=== PATIENT | female | born 1975 | race Caucasian/White ===

== ENCOUNTER 2016-11-04 03:02 | Observation (INO) | payer BC, OTHER ==
[2016-11-04] MEDS ORDERED: HEPARIN SODIUM,PORCINE/D5W PMX 25,000 UNIT in DEXTROSE/WATER 1 500ML.BAG IV SCH (03:45)
[2016-11-04] MEDS ORDERED: ONDANSETRON 4 MG/2 ML VIAL IVP STA (04:02)
[2016-11-04 04:56] LABS: Amylase 49 U/L (30-110)
[2016-11-04] MEDS ORDERED: Acetaminophen-Codeine 300-30mg TAB PO STA (05:15)
[2016-11-04] MEDS ORDERED: INSULIN GLARGINE 100 UNIT/ML 10 ML VIAL SQ STA (06:12)
[2016-11-04] MEDS ORDERED: NITROGLYCERIN SL TABS 0.4 MG TAB SUBLINGUAL PRN (06:21)
--- NOTE | 2016-11-04 06:21 | ED ---
Chest Pain HPI - General Chief Complaint: Chest Pain Stated Complaint: Chest Pain Time Seen by Provider: 11/04/16 03:06 Source: patient Mode of arrival: EMS Limitations: no limitations - History of Present Illness Initial Comments: This patient is a 41-year-old woman who was transferred here from [facility]. The patient reportedly has history of previous coronary artery disease and today was having pain similar to that. Pain radiated to left arm. The pain is resolved before she arrives here. She does have history of diabetes and she does smoke about 1 pack per day. MD Complaint: chest pain -: hour(s) Onset: during exertion Pain Location: substernal Pain Radiation: LUE Severity: moderate Quality: tightness Consistency: constant Improves With: nothing Worsens With: nothing - Related Data Home Medications Medication Instructions Recorded Confirmed Gemfibrozil [Lopid] 600 mg PO DAILY 08/28/16 11/04/16 Insulin Glargine [Lantus] 30 units SQ DAILY 08/28/16 11/04/16 metFORMIN HCL 1,000 mg PO BID 08/28/16 11/04/16 Acetaminophen-Codeine 300-30mg 1 tab PO Q6H PRN 11/04/16 11/04/16 [Tylenol w/codeine #3] Colestipol HCl [Colestid] 1 gm PO BID 11/04/16 11/04/16 EPINEPHrine [Epipen 2-Germain] 0.3 mg IM ONCE PRN 11/04/16 11/04/16 Ezetimibe [Zetia] 10 mg PO DAILY 11/04/16 11/04/16 HYDROcodone/APAP 7.5-325MG [[place] 1 tab PO Q4H PRN 11/04/16 11/04/16 7.5-325] Ondansetron [Zofran] 4 mg PO Q6H PRN 11/04/16 11/04/16 Previous Rx's Medication Instructions Recorded Ibuprofen [Motrin] 800 mg PO Q6HR PRN #20 tab 08/28/16 Aspirin 81 mg PO DAILY #1 chewable 11/05/16 Cyclobenzaprine [Flexeril] 10 mg PO TID tab 11/05/16 Nicotine 21Mg/24Hr Patch [Habitrol] 1 patch TRANSDERM DAILY #0 patch 11/05/16 Allergies Allergy/AdvReac Type Severity Reaction Status Date / Time Iodinated Contrast Media - Allergy Unknown Verified 11/04/16 12:10 Oral and [Iodinated Contrast Media - IV Dye] Review of Systems ROS Statement: Those systems with pertinent positive or pertinent negative responses have been documented in the HPI. ROS Other: All systems not noted in ROS Statement are negative. Constitutional: Denies: fever, chills Respiratory: Denies: cough, dyspnea Cardiovascular: Reports: chest pain. Denies: palpitations, syncope Gastrointestinal: Denies: abdominal pain, vomiting Genitourinary: Denies: dysuria, hematuria Musculoskeletal: Denies: back pain Skin: Denies: rash Neurological: Denies: headache, weakness, numbness Past Medical History Past Medical History: Chest Pain / Angina, Diabetes Mellitus, Hyperlipidemia Additional Past Medical History / Comment(s): Familial Hypertriglyceridemia; Pancreatitis History of Any Multi-Drug Resistant Organisms: None Reported Past Surgical History: Cardiac Ablation Additional Past Surgical History / Comment(s): Ankle, Knee scope Past Psychological History: No Psychological Hx Reported Smoking Status: Current every day smoker Past Alcohol Use History: Rare Past Drug Use History: None Reported - Past Family History Father Family Medical History: No Reported History General Exam Limitations: no limitations General appearance: alert, in no apparent distress Head exam: Present: atraumatic, normocephalic Eye exam: Present: normal appearance. Absent: scleral icterus, conjunctival injection Respiratory exam: Present: normal lung sounds bilaterally. Absent: respiratory distress, wheezes, rales, rhonchi, stridor Cardiovascular Exam: Present: regular rate, normal rhythm, normal heart sounds. Absent: systolic murmur, diastolic murmur, rubs, gallop GI/Abdominal exam: Present: soft. Absent: distended, tenderness, guarding, rebound, rigid Extremities exam: Present: normal inspection, normal capillary refill. Absent: pedal edema, calf tenderness Back exam: Present: normal inspection. Absent: CVA tenderness (R), CVA tenderness (L) Neurological exam: Present: alert Skin exam: Present: warm, dry, intact, normal color. Absent: rash Course Vital Signs 11/04/16 11/04/16 03:26 07:29 Temperature 97.1 F L Pulse Rate 82 69 Respiratory 18 16 Rate Blood Pressure 108/66 109/68 O2 Sat by Pulse 98 97 Oximetry Disposition Clinical Impression: Chest pain Disposition: ADMITTED IP TO THIS HOSP Condition: Fair
[2016-11-04] MEDS ORDERED: HYDROcodone/APAP 5-325MG 1 EACH TAB PO PRN (06:23)
[2016-11-04] MEDS ORDERED: IBUPROFEN 800 MG TAB PO PRN (06:23)
[2016-11-04] MEDS ORDERED: SODIUM CHLORIDE 0.9% 1,000 ML IV SCH (06:30)
[2016-11-04 07:52] LABS: Glucose,Whole Blood 155 mg/dL (75-99)
[2016-11-04 10:36] VITALS: BMI 33.0
[2016-11-04 10:51] LABS: Glucose,Whole Blood 166 mg/dL (75-99)
[2016-11-04] MEDS: CYCLOBENZAPRINE 10 MG TAB PO SCH ×3 (10:55→20:28)
[2016-11-04 11:25] LABS: Creatine Kinase 59 U/L (30-135)
[2016-11-04 11:35] LABS: Creatine Kinase MB 0.7 ng/mL (0.0-2.4); Troponin I <0.012 ng/mL (0.000-0.034)
[2016-11-04] MEDS ORDERED: LORazepam 1 MG TAB PO STA (11:54)
[2016-11-04] MEDS ORDERED: NAPROXEN 250 MG TAB PO STA (11:55)
[2016-11-04] MEDS ORDERED: METOCLOPRAMIDE 5 MG TAB PO STA (11:55)
[2016-11-04 13:36] LABS: Hemoglobin A1C 7.5 % (4.2-6.1)
--- NOTE | 2016-11-04 14:12 | P.CRDCN ---
History of Present Illness Consult reason: chest pain History of present illness: 41-year-old female presenting with left-sided chest discomfort She started having shoulder discomfort and interscapular discomfort and then spread to her left chest and down her left arm No dizziness lightheadedness or palpitations Past history of diabetes, hyper-triglyceridemia Review of systems: No fever chills or rigors, no cough, phlegm or expectoration , no nausea, vomiting or diarrhea, no hematuria, dysuria, no musculoskeletal complaints, no strokes or seizures, no skin lesions. On examination she is afebrile 98.5 Pulse rate in the 70s Blood pressure 122/56 mmHg Heart sounds are normal Breath sounds are normal No JVD no thyromegaly or bruits Extremities are warm no edema Impression Adult-onset diabetes with elevated blood glucose hemoglobin A1c 7.5 Hypertriglyceridemia History of pancreatitis, Admitted with atypical chest discomfort with normal cardiac enzymes Suggest Dobutamine stress echo tomorrow Patient unable to exercise she had ankle injury Lipid panel Stop heparin Past Medical History Past Medical History: Chest Pain / Angina, Diabetes Mellitus, Hyperlipidemia, Myocardial Infarction ([place]) Additional Past Medical History / Comment(s): Familial Hypertriglyceridemia; Pancreatitis, chronic back pain Last Myocardial Infarction Date:: 2007 History of Any Multi-Drug Resistant Organisms: None Reported Past Surgical History: Heart Catheterization Additional Past Surgical History / Comment(s): Ankle, Knee scope, uterine ablation Past Anesthesia/Blood Transfusion Reactions: No Reported Reaction Past Psychological History: No Psychological Hx Reported Smoking Status: Current every day smoker Past Alcohol Use History: Rare Past Drug Use History: None Reported - Past Family History Father Family Medical History: No Reported History Medications and Allergies Home Medications Medication Instructions Recorded Confirmed Type Gemfibrozil [Lopid] 600 mg PO DAILY 08/28/16 11/04/16 History Insulin Glargine [Lantus] 30 units SQ DAILY 08/28/16 11/04/16 History metFORMIN HCL 1,000 mg PO BID 08/28/16 11/04/16 History Acetaminophen-Codeine 300-30mg 1 tab PO Q6H PRN 11/04/16 11/04/16 History [Tylenol #3] Colestipol HCl [Colestid] 1 gm PO BID 11/04/16 11/04/16 History EPINEPHrine [Epipen 2-Germain] 0.3 mg IM ONCE PRN 11/04/16 11/04/16 History Ezetimibe [Zetia] 10 mg PO DAILY 11/04/16 11/04/16 History HYDROcodone/APAP 7.5-325MG [[place] 1 tab PO Q4H PRN 11/04/16 11/04/16 History 7.5-325] Ondansetron [Zofran] 4 mg PO Q6H PRN 11/04/16 11/04/16 History Allergies Allergy/AdvReac Type Severity Reaction Status Date / Time Iodinated Contrast Media - Allergy Unknown Verified 11/04/16 12:10 Oral and [Iodinated Contrast Media - IV Dye] Physical Exam Vitals: Vital Signs Temp Pulse Pulse Resp BP BP Pulse Ox 11/04/16 12:00 74 16 122/56 97 11/04/16 07:45 98.5 F 73 18 104/55 96 11/04/16 07:29 69 16 109/68 97 Intake and Output 11/03/16 11/04/16 11/04/16 22:59 06:59 14:59 Other: Voiding Method Toilet Weight 98.5 kg 98.5 kg Patient Weight 11/05/16 06:59 Weight 98.5 kg Results Cardiac Enzymes 11/04/16 Range/Units 10:32 CK-MB (CK-2) 0.7 (0.0-2.4) ng/mL Troponin I <0.012 (0.000-0.034) ng/mL Coagulation 11/04/16 Range/Units 10:32 APTT 27.0 (22.0-30.0) sec Current Medications Generic Name Dose Route Start Last Admin Trade Name Freq PRN Reason Stop Dose Admin Acetaminophen/Hydrocodone [place]art 1 each 11/04/16 06:23 11/04/16 08:04 [place] 5-325 PO 1 each Q6HR PRN Administration Pain Aspirin 325 mg 11/05/16 09:[address] [facility] Cyclobenzaprine HCl 10 mg 11/04/16 09:00 11/04/16 10:55 Flexeril PO Not Given TID IZABELLA Ibuprofen 800 mg 11/04/16 06:23 Motrin PO Q6HR PRN Pain Nitroglycerin 0.4 mg 11/04/16 06:21 Nitrostat SUBLINGUAL Q5M PRN Chest Pain Intake and Output 11/03/16 11/04/1617 22:59 06:59 14:59 Other: Voiding Method Toilet Weight 98.5 kg 98.5 kg Patient Weight 11/05/16 06:59 Weight 98.5 kg
[2016-11-04] MEDS ORDERED: HYDROcodone/APAP 7.5-325MG 1 EACH TAB PO PRN (16:06)
[2016-11-04] MEDS ORDERED: Acetaminophen-Codeine 300-30mg TAB PO PRN (16:06)
[2016-11-04 17:46] LABS: Glucose,Whole Blood 205 mg/dL (75-99)
[2016-11-04 17:47] LABS: Creatine Kinase 54 U/L (30-135)
[2016-11-04 18:00] LABS: Creatine Kinase MB 0.9 ng/mL (0.0-2.4); Troponin I <0.012 ng/mL (0.000-0.034)
[2016-11-04] MEDS: INSULIN GLARGINE 100 UNIT/ML 10 ML VIAL SQ SCH (18:10)
[2016-11-04] MEDS ORDERED: ACETAMINOPHEN TAB 500 MG TAB PO STA (18:53)
[2016-11-04] MEDS ORDERED: DIAZEPAM 2 MG TAB PO STA (18:53)
--- NOTE | 2016-11-04 20:11 | HP ---
DATE OF ADMISSION: 11/04/2016 PRESENTING COMPLAINT: ( ) HISTORY OF PRESENT COMPLAINT: This is a 41-year-old patient of Dr. Lincoln whose chronic stable medical conditions include diabetes, hypertriglyceridemia, lower back herniated disc. Patient in 2007 had a myocardial infarction here at [facility] and had a cardiac cath. She was told it was negative. Patient about 2 weeks at work passed out. She was told she has hypoglycemia. Patient presents with left neck and left arm pain in the shoulder, going down the left arm. She is also having some tightness in his chest in between the shoulder blades. She also noticed some increasing pain with movement of her left shoulder, but there is also pain in the left front of the chest. There is some shortness of breath. Patient is a smoker 1 pack a day. Patient also had a migraine headache attack today. Otherwise, the patient is not doing too bad she states. REVIEW OF SYSTEMS: CONSTITUTIONAL: None. HEENT: Headache. RESPIRATORY: Some chest tightness. No wheezing. CARDIOVASCULAR: Precordial pain. GASTROINTESTINAL: None. GENITOURINARY: None. MUSCULOSKELETAL: Lower back pain, herniated disc, left shoulder pain. DERMATOLOGICAL: None. HEMATOLOGICAL: None. LYMPHATICS: None. PSYCHIATRY: None. NEUROLOGICAL: None. Past history of diabetes, hypertriglyceridemia, herniated disc, low back pain, myocardial infarction in 2007 with negative cardiac catheterization. Pancreatitis. PAST SURGICAL HISTORY: Cardiac cath, ankle, knee scope, uterine ablation. SOCIAL HISTORY: The patient smokes a pack a day. Alcohol rarely. Has 2 children. 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 FAMILY HISTORY: Reviewed, noncontributory to presentation. HOME MEDICATIONS: 1. Metformin 1000 mg p.o. b.i.d. 2. Zofran 4 mg q.6 p.r.n. 3. Lantus 30 units subcu daily. 4. Motrin 800 mg q.6 p.r.n. 5. [place] 7.5, 1 tablet q.4 p.r.n. 6. Lopid 600 mg p.o. daily. 7. Zetia 10 mg p.o. daily. 8. EpiPen Colestid 1 gram p.o. b.i.d. 9. Tylenol No. 3, 1 tablet q.6 p.r.n. ALLERGIES: IV CONTRAST DYE. On examination, temperature 97.1, pulse 82, respiration 18, blood pressure 108/66, pulse 98% on 2 liters. GENERAL APPEARANCE: Well-built, BMI 33, sitting up, not in distress. EYES: Pupils equal, conjunctivae normal. HEENT: Oral cavity normal. NECK: JVD not raised. Mass not palpable. RESPIRATORY: Effort normal. LUNGS: Fair air entry. CARDIOVASCULAR: First and second sounds normal. No edema. ABDOMEN: Soft, nontender. Liver and spleen not palpable. LYMPHATIC: No lymph node palpable in the neck or axillae. PSYCHIATRY: Alert and oriented x3. Mood and affect normal. NEUROLOGICAL: Pupils equal. Cranial nerves grossly intact. Power and sensation grossly intact. MUSCULOSKELETAL: Somewhat limited range of motion of the left shoulder. There is some point tenderness at the left shoulder. Also with the patient's arm outstretched to about 45 degrees in the horizontal anterior plane. When pushing up to an extended arm there is pain at the left shoulder. INVESTIGATIONS: Troponin x2 are negative. ASSESSMENT: 1. Possible unstable angina in a patient whose cardiac risk factors include smoking, obesity, diabetes mellitus type 2, hyperlipidemia. 2. Hypercholesterolemia. 3. Chronic lower back pain for herniated disc. 4. Possible history of coronary artery disease with prior myocardial infarction in 2007 with negative cardiac catheterization. 5. Suspect left rotator cuff injury. Will need further outpatient work-up. 6. Chronic nicotine dependence. Patient is a cigarette smoker. 7. Obesity, body mass index of 33. PLAN: Home medications are resumed. Cardiology was consulted who ordered a repeat echocardiogram. Patient counseled against smoking. Given a nicotine patch. Home medications are medications. Care was discussed with the patient.
[2016-11-04] MEDS: EZETIMIBE 10 MG TAB PO SCH (20:26)
[2016-11-04] MEDS: GEMFIBROZIL 600 MG TAB PO SCH (20:26)
[2016-11-04] MEDS: metFORMIN 500 MG TAB PO SCH (20:27)
[2016-11-04] MEDS: NICOTINE 21MG/24HR PATCH TRANSDERM SCH (20:32)
[2016-11-04] MEDS ORDERED: COLESTIPOL HCL 1 GM PO SCH (21:00)
[2016-11-04 21:17] LABS: Glucose,Whole Blood 196 mg/dL (75-99)
[2016-11-05] MEDS ORDERED: DOBUTamine DRIP for NUC MED 500 MG in DEXTROSE/WATER 1 250ML.BAG IV ONE (05:00)
[2016-11-05 05:30] LABS: Cholesterol 199 mg/dL (<200); HDL Cholesterol 26 mg/dL (40-60)
[2016-11-05 05:46] LABS: Triglycerides 871 mg/dL (<150)
[2016-11-05 07:12] LABS: Glucose,Whole Blood 167 mg/dL (75-99)
[2016-11-05] MEDS ORDERED: ASPIRIN 325 MG TAB PO SCH (09:00)
[2016-11-05 10:29] LABS: Glucose,Whole Blood 137 mg/dL (75-99)
[2016-11-05] MEDS: NICOTINE 21MG/24HR PATCH TRANSDERM SCH (10:49)
[2016-11-05] MEDS: metFORMIN 500 MG TAB PO SCH (10:53)
[2016-11-05] MEDS: GEMFIBROZIL 600 MG TAB PO SCH (10:54)
[2016-11-05] MEDS: CYCLOBENZAPRINE 10 MG TAB PO SCH (10:54)
[2016-11-05] MEDS: INSULIN GLARGINE 100 UNIT/ML 10 ML VIAL SQ SCH (10:54)
[2016-11-05] MEDS: EZETIMIBE 10 MG TAB PO SCH (10:55)
[2016-11-05 11:59] LABS: Glucose,Whole Blood 214 mg/dL (75-99)
[2016-11-05 12:15] VITALS: BP 118/71; PULSE 73; RESP 18; TEMP 98.7
--- NOTE | 2016-11-05 13:40 | ECHOS ---
DATE OF SERVICE: AGE: 41Y SEX: F HT: 68" WT:217 lbs. Protocol Wes: Others: Stage: 4 Dur. of Exercise: 10:45 *Heart Rate Blood Pressure *Rest: 72 Rest: 115/74 * *Max. Achieved: 148 Maximum BP: 158/75 85% PMHR: 150 100% PMHR: 177 *METS: INDICATIONS: Chest pain. MEDICATIONS: Mrs. Gonzalez is a 41-year-old female with history of chest pains and shortness of breath, being evaluated for cardiac status. Patient has history of diabetes, hypercholesterolemia, and family history. Baseline EKG showed sinus rhythm with normal AR interval and QRS duration. Blood pressure at rest is 115/74 with a pulse rate of 72. A standard dose of dobutamine was initiated at 10 mcg and was titrated to a maximum of 40 mcg. The patient has achieved a maximum heart rate of 148 with a blood pressure of 140/ 67, which is slightly below her 80% predicted heart rate. EKGs taken during and after the dobutamine infusion did not reveal any significant changes from the baseline. Analysis of the stress echocardiogram : Baseline echo images showed normal wall motion and thickening. Echo images taken at low dose and high-dose dobutamine showed progressive augmentation of the wall motion and thickening in all the segments. FINAL IMPRESSION: 1. Negative dobutamine stress test at about 83% predicted heart rate. 2. Negative dobutamine stress echo.
--- NOTE | 2016-11-06 22:20 | DS ---
DATE OF ADMISSION: 11/04/2016 DATE OF DISCHARGE: 11/05/2016 FINAL DIAGNOSES: 1. Left sided chest wall pain in a patient with multiple cardiac risk factors and negative stress test. 2. Hypercholesterolemia. 3. Chronic low back pain from herniated disc. 4. Possible history of coronary artery disease with prior history of myocardial infarction in 2007 with negative cardiac catheterization. 5. Suspect left rotator cuff injury. 6. Nicotine dependence. Patient is a cigarette smoker. 7. Obesity, BMI 33. HOSPITAL COURSE: This patient presented with chest pain, left shoulder pain. The patient underwent a dobutamine stress test. Dr. Reid was consulted. Okayed the patient to be discharged. Also has some left shoulder pain and follow with orthopedics as an outpatient. Been counseled against smoking. On exam, lungs are clear. CARDIOVASCULAR: First and second seconds normal. The patient and no anterior chest wall pain on discharge. DISCHARGE MEDICATIONS: 1. Lopid 600 mg p.o. daily. 2. Lantus 30 units subcu daily. 3. Metformin 1000 mg p.o. b.i.d. 4. Tylenol #3, 1 tablet q.6 p.r.n. 5. Colestid 1 gram p.o. b.i.d. 6. EpiPen p.r.n. 7. Zetia 10 mg p.o. daily. 8. [place] 7.5 1 tablets q.4 p.r.n. 9. Zofran 4 mg q.6 p.r.n. 10. Aspirin 81 mg daily. 11. Flexeril 10 mg p.o. t.i.d. 12. Nicotine patch. Follow-up with Dr. Reid p.r.n. Follow up with Dr. Lincoln in 3 days. Follow up with Dr. Maguire in 3 days for headache, followed with Dr. Omer in one week for left shoulder pain. On exam, lungs are clear. CARDIOVASCULAR: First and second sounds normal.
== END 2016-11-05 16:20 | disposition home or self-care (01) ==
LOC: SUPCPDRO 03:02 → EC 03:02 → 3OBS 06:21
PROVIDERS: ADMIT Hospitalist; ATTEND Hospitalist
DX: R07.89 Other chest pain (principal); E78.00 Pure hypercholesterolemia, unspecified; M51.26 Other intervertebral disc displacement, lumbar region; G89.29 Other chronic pain; F17.210 Nicotine dependence, cigarettes, uncomplicated; E66.9 Obesity, unspecified; Z68.33 Body mass index [BMI] 33.0-33.9, adult; E11.649 Type 2 diabetes mellitus with hypoglycemia without coma; E11.65 Type 2 diabetes mellitus with hyperglycemia; R06.02 Shortness of breath; G43.909 Migraine, unspecified, not intractable, without status migrainosus; E78.1 Pure hyperglyceridemia; M25.512 Pain in left shoulder; I25.2 Old myocardial infarction; Z79.4 Long term (current) use of insulin; Z79.84 Long term (current) use of oral hypoglycemic drugs; Z91.041 Radiographic dye allergy status
CPT/HCPCS: 99285; 96365; 96366 ×3; 96375; 36415; 93005; 93017; 93350; 80061; 82150; 83036; 82550; 82553; 83690; 84484; 85730; G0378 ×2; J1250; J2405; J1644

== ENCOUNTER → 2017-03-07 | Outpatient (CLI) | payer BC ==
--- NOTE | 2017-03-07 11:31 | CONS ---
DATE OF CONSULTATION: 03/07/2017 CONSULTATION/NEW PATIENT EVALUATION A 41-year-old lady has been evaluated in the sleep center for possible obstructive sleep apnea/hypopnea syndrome. 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 until around 2:30 p.m. On days when she is off, she sleeps from around 11 p.m. to 6 a.m. FALLING ASLEEP: No problem with falling asleep. She has a TV set in bedroom. DURING SLEEP: Sleeps in different positions. Wakes up from sleep up to 5 times with up to 2 episodes of nocturia. She snores and she has been told about episodes of stopped breathing during the sleep. DURING THE DAY/WAKE STATE: During the time when she is not sleeping she feels significantly sleepy. [place] Sleepiness Scale in extremely high range at 22. Has problem with memory and concentration. No history of hypnagogic hallucinations, sleep paralysis or cataplexy. Usually she does not take naps. PAST MEDICAL HISTORY: Positive for diabetes mellitus, migraines, coronary artery disease with status post LA in 2007, pancreatitis, thyroid nodules, 5 normal deliveries. PAST SURGICAL HISTORY: Left ankle surgery, left knee surgery, back surgery, breast biopsy, which was with benign results. MEDICATIONS: Metformin, Lopid, Lantus, Zofran. SOCIAL HISTORY: Positive for smoking around 1 pack a day for 25 years. Alcohol consumption rarely. REVIEW OF SYSTEMS: Positive for tiredness and sleepiness during the day, awakenings from sleep, pain in the back. No fevers. No double vision. No recent chest pain. No shortness of breath. No abdominal pain. No bleeding episodes. No blood in urine. No seizure episodes. PHYSICAL EXAMINATION: GENERAL: A 41-year-old lady without any distress. VITAL SIGNS: BP 138/89, HR 84, RR 16. Height 5 feet 8 inches. Weight 202, body mass index 30.7. Neck 15-1/4 inches in circumference. Temp is 98.2. Oxygen saturation at room air 98%. HEENT: PERRLA, EOMI. Evaluation of oropharynx showed moderately low to normal position of soft palate. Some restriction of nasal breathing, possible slight nasal septum deviation. NECK: 15-1/4 inch in circumference. Palpation of thyroid slightly painful. LUNGS: Clear to percussion and to auscultation. Good air exchange. No wheezing or rhonchi. HEART: A short systolic murmur on aorta. ABDOMEN: Slightly obese. EXTREMITIES: No clubbing or cyanosis. VIDEOTAPE EDITOR: Awake, alert, and oriented x3. Cranial nerves 2 to 7 intact. There is no fasciculation or atrophy noted. No focal deficits observed. IMPRESSION: 1. Snoring, witnessed episodes of stopped breathing during the sleep. Some restriction of nasal breathing, slightly low position of soft palate, possible obstructive sleep apnea-hypopnea syndrome. 2. 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 3. Significant tiredness and sleepiness. [place] Sleepiness Scale 22. No history of hypnagogic hallucinations, sleep paralysis, but differential diagnosis include hypersomnia. 4. Diabetes mellitus. 5. History of myocardial infarction in 2007. Several cardiac caths at the same time was negative. 6. 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 7. Status post left ankle surgery. 8. Status post left knee surgery. 9. History of pancreatitis, possibly genetic because patient's sister also has history of pancreatitis. 10. History of 3 thyroid nodules in the present time. Thyroid slightly painful during the palpation. 11. Status post back surgery. 12. Mild obesity, body mass index of 30.7. PLAN: 1. Polysomnography for evaluation of patient's breathing during sleep. 2. CPAP/BiPAP titration if sleep study confirms obstructive sleep apnea-hypopnea syndrome. 3. Multiple sleep latency test if sleep study is negative for obstructive sleep apnea/hypopnea syndrome. 4. Preferable position during sleep on the side. 5. No driving if patient feels any sleepiness. Patient is aware of civil and criminal liability for unsafe driving. 6. I will see patient for follow-up visit to explain results of the testing and following plan. Thank you very much for referring this patient for consultation. Sincerely, Seth Porter MD, PhD, FAASM. Diplomat of [place] [employer], Sleep Medicine Board by [place] [employer] [place] [employer] Stress Engineer of [facility]
== END | disposition home or self-care (01) ==
LOC: SLEEP 10:05
PROVIDERS: ATTEND Internal Medicine
DX: R06.83 Snoring (principal); E11.9 Type 2 diabetes mellitus without complications; E66.9 Obesity, unspecified; F17.200 Nicotine dependence, unspecified, uncomplicated; I25.10 Atherosclerotic heart disease of native coronary artery without angina pectoris; Z98.890 Other specified postprocedural states; Z68.30 Body mass index [BMI] 30.0-30.9, adult
CPT/HCPCS: 99211

== ENCOUNTER 2017-05-22 23:07 | Emergency (ER) | payer BC, OTHER ==
[2017-05-22 23:57] VITALS: TEMP 98.7
[2017-05-22] MEDS ORDERED: HYDROmorphone 1 MG/ML 1 ML SYRINGE IVP STA (23:57)
[2017-05-22] MEDS ORDERED: SODIUM CHLORIDE 0.9% 1,000 ML IV STA ×2 (23:57)
[2017-05-22] MEDS ORDERED: METOCLOPRAMIDE 5 MG/ML 2 ML VIAL IVP STA (23:57)
[2017-05-22] MEDS ORDERED: diphenhydrAMINE 50 MG/ML 1 ML VIAL IVP STA (23:57)
[2017-05-23 00:37] LABS: Basophils % (A) 0 %; CH 30.2; CHCM 34.7; Eosinophils # (A) 0.2 k/uL (0-0.7); Eosinophils % (A) 3 %; HCT 38.3 % (34.0-46.0); HDW 2.68; HGB 12.7 gm/dL (11.4-16.0); Luc # (Auto) 0.09; Luc % (Auto) 1; Lymphocytes # (A) 2.3 k/uL (1.0-4.8); Lymphocytes % (A) 31 %; MCH 29.1 pg (25.0-35.0); MCHC 33.2 g/dL (31.0-37.0); MCV 87.7 fL (80.0-100.0); Mean Platelet Volume 7.3; Monocytes # (A) 0.4 k/uL (0-1.0); Monocytes % (A) 6 %; Neutrophils # (A) 4.3 k/uL (1.3-7.7); Neutrophils % (A) 59 %; RBC 4.37 m/uL (3.80-5.40); RDW 13.9 % (11.5-15.5); WBC 7.3 k/uL (3.8-10.6); WBC (Perox) 7.81
[2017-05-23 00:41] LABS: Appearance,Urine Cloudy (Clear); Bacteria,Urine Rare /hpf; Bilirubin,Urine Negative (Negative); Glucose,Urine (UA) Trace (Negative); Ketones,Urine Negative (Negative); Leukocyte Esterase,Urine Small (Negative); Mucus,Urine Rare /hpf; Nitrite,Urine Negative (Negative); PH, Urine 5.5 (5.0-8.0); Particle Count 5478; Protein,Urine Negative (Negative); Specific Gravity,Urine 1.019 (1.001-1.035); Squamous Epithelial Cell,Urine 7 /hpf (0-4); UA Billing (MACRO vs. MICRO) MICRO; Urobilinogen,Urine <2.0 mg/dL (<2.0); WBC,Urine 5 /hpf (0-5)
[2017-05-23 00:48] LABS: ALT 35 U/L (9-52); AST 17 U/L (14-36); Alkaline Phosphatase 64 U/L (38-126); Amylase 39 U/L (30-110); Anion Gap 9 mmol/L; Blood Urea Nitrogen 6 mg/dL (7-17); Calcium 8.8 mg/dL (8.4-10.2); Carbon Dioxide 25 mmol/L (22-30); Chloride 108 mmol/L (98-107); Glucose 120 mg/dL (74-99); Non-African American GFR(MDRD) >60 (>60 ml/min/1.73 sqM); Potassium 3.6 mmol/L (3.5-5.1); Sodium 142 mmol/L (137-145); Total Bilirubin 0.2 mg/dL (0.2-1.3); Total Protein 6.2 g/dL (6.3-8.2)
--- NOTE | 2017-05-23 01:41 | US ---
EXAM: US Abdomen Limited, Right Upper Quadrant CLINICAL HISTORY: Reason: Pain TECHNIQUE: Real-time ultrasound of the right upper quadrant with image documentation. COMPARISON: No relevant prior studies available. FINDINGS: Liver: Liver is enlarged, measuring 22.6 cm in length, and diffusely echogenic suggesting hepatic steatosis. Gallbladder: Probable gallbladder sludge. No shadowing gallstone. Normal gallbladder wall thickness (2 mm). No pericholecystic fluid. Negative sonographic Roe's sign. Common duct: Normal diameter, 5 mm. Pancreas: Limited visualization. Right kidney: No right hydronephrosis. Right renal length is mildly enlarged, 14.6 cm IMPRESSION: 1. Gallbladder sludge. No shadowing gallstones or evidence of cholecystitis. 2. No biliary dilatation. 3. Enlarged and echogenic liver suggesting hepatic steatosis.
--- NOTE | 2017-05-23 02:07 | ED ---
Abdominal Pain HPI - General Chief Complaint: Abdominal Pain Stated Complaint: Abd Pain Time Seen by Provider: 05/22/17 23:45 Source: patient Mode of arrival: ambulatory Limitations: no limitations - Related Data Home Medications Medication Instructions Recorded Confirmed Gemfibrozil [Lopid] 600 mg PO DAILY 08/28/16 11/04/16 Insulin Glargine [Lantus] 30 units SQ DAILY 08/28/16 11/04/16 metFORMIN HCL 1,000 mg PO BID 08/28/16 11/04/16 Acetaminophen-Codeine 300-30mg 1 tab PO Q6H PRN 11/04/16 11/04/16 [Tylenol w/codeine #3] Colestipol HCl [Colestid] 1 gm PO BID 11/04/16 11/04/16 EPINEPHrine [Epipen 2-Germain] 0.3 mg IM ONCE PRN 11/04/16 11/04/16 Ezetimibe [Zetia] 10 mg PO DAILY 11/04/16 11/04/16 HYDROcodone/APAP 7.5-325MG [[place] 1 tab PO Q4H PRN 11/04/16 11/04/16 7.5-325] Ondansetron [Zofran] 4 mg PO Q6H PRN 11/04/16 11/04/16 Previous Rx's Medication Instructions Recorded Ibuprofen [Motrin] 800 mg PO Q6HR PRN #20 tab 08/28/16 Aspirin 81 mg PO DAILY #1 chewable 11/05/16 Cyclobenzaprine [Flexeril] 10 mg PO TID tab 11/05/16 Nicotine 21Mg/24Hr Patch [Habitrol] 1 patch TRANSDERM DAILY #0 patch 11/05/16 Naproxen 500 mg PO TID #30 tablet 05/23/17 traMADol HCl [Ultram] 50 mg PO Q6H PRN #20 tab 05/23/17 Allergies Allergy/AdvReac Type Severity Reaction Status Date / Time Iodinated Contrast- Oral and Allergy Unknown Verified 05/22/17 23:32 IV Dye [Iodinated Contrast Media - IV Dye] Review of Systems ROS Statement: Those systems with pertinent positive or pertinent negative responses have been documented in the HPI. ROS Other: All systems not noted in ROS Statement are negative. Past Medical History Past Medical History: Chest Pain / Angina, Diabetes Mellitus, Hyperlipidemia, Myocardial Infarction ([place]) Additional Past Medical History / Comment(s): Familial Hypertriglyceridemia; Pancreatitis Last Myocardial Infarction Date:: 2007 History of Any Multi-Drug Resistant Organisms: None Reported Past Surgical History: Back Surgery, Cardiac Ablation Additional Past Surgical History / Comment(s): Ankle, Knee scope Past Anesthesia/Blood Transfusion Reactions: No Reported Reaction Past Psychological History: No Psychological Hx Reported Smoking Status: Current every day smoker Past Alcohol Use History: None Reported Past Drug Use History: None Reported - Past Family History Father Family Medical History: No Reported History General Exam Limitations: no limitations Course Vital Signs 05/22/17 05/22/17 23:29 23:53 Temperature 98.5 F 98.7 F Pulse Rate 83 83 Respiratory 18 18 Rate Blood Pressure 145/78 143/90 O2 Sat by Pulse 99 100 Oximetry Medical Decision Making - Lab Data Result diagrams: 05/23/17 00:10 05/23/17 00:10 Lab Results 05/23/17 05/23/17 05/23/17 Range/Units 00:10 00:10 00:10 WBC 7.3 (3.8-10.6) k/uL RBC 4.37 (3.80-5.40) m/uL Hgb 12.7 (11.4-16.0) gm/dL Hct 38.3 (34.0-46.0) % MCV 87.7 (80.0-100.0) fL MCH 29.1 (25.0-35.0) pg MCHC 33.2 (31.0-37.0) g/dL RDW 13.9 (11.5-15.5) % Plt Count 210 (150-450) k/uL Neutrophils % 59 % Lymphocytes % 31 % Monocytes % 6 % Eosinophils % 3 % Basophils % 0 % Neutrophils # 4.3 (1.3-7.7) k/uL Lymphocytes # 2.3 (1.0-4.8) k/uL Monocytes # 0.4 (0-1.0) k/uL Eosinophils # 0.2 (0-0.7) k/uL Basophils # 0.0 (0-0.2) k/uL Sodium 142 (137-145) mmol/L Potassium 3.6 (3.5-5.1) mmol/L Chloride 108 H (98-107) mmol/L Carbon Dioxide 25 (22-30) mmol/L Anion Gap 9 mmol/L BUN 6 L (7-17) mg/dL Creatinine 0.50 L (0.52-1.04) mg/dL Est GFR (MDRD) Af Amer >60 (>60 ml/min/1.73 sqM) Est GFR (MDRD) Non-Af >60 (>60 ml/min/1.73 sqM) Glucose 120 H (74-99) mg/dL Calcium 8.8 (8.4-10.2) mg/dL Total Bilirubin 0.2 (0.2-1.3) mg/dL AST 17 (14-36) U/L ALT 35 (9-52) U/L Alkaline Phosphatase 64 (38-126) U/L Total Protein 6.2 L (6.3-8.2) g/dL Albumin 3.6 (3.5-5.0) g/dL Amylase 39 (30-110) U/L Lipase 63 (23-300) U/L Urine Color Yellow Urine Appearance Cloudy H (Clear) Urine pH 5.5 (5.0-8.0) Ur Specific [place] 1.019 (1.001-1.035) Urine Protein Negative (Negative) Urine Glucose (UA) Trace H (Negative) Urine Ketones Negative (Negative) Urine Blood Negative (Negative) Urine Nitrite Negative (Negative) Urine Bilirubin Negative (Negative) Urine Urobilinogen <2.0 (<2.0) mg/dL Ur Leukocyte Esterase Small H (Negative) Urine WBC 5 (0-5) /hpf Ur Squamous Epith Cells 7 H (0-4) /hpf Urine Bacteria Rare H (None) /hpf Urine Mucus Rare H (None) /hpf Disposition Clinical Impression: Biliary colic Disposition: HOME SELF-CARE Condition: Good Instructions: Biliary Colic (ED) Additional Instructions: Have a bland diet. No fatty or spicy foods. Follow-up with her primary care physician as well as general surgeon. Return to emergency department if any alarming signs or symptoms occur. Prescriptions: Naproxen 500 mg PO TID #30 tablet traMADol HCl [Ultram] 50 mg PO Q6H PRN #20 tab PRN Reason: Pain Referrals: Pino Lincoln MD [Primary Care Provider] - 1-2 days Letha Sauer DO [Doctor of Osteopathic Medicine] - 1-2 days Time of Disposition: 02:05
[2017-05-23 02:19] VITALS: BP 138/77; PULSE 81; RESP 16
== END 2017-05-23 02:19 | disposition home or self-care (01) ==
LOC: EC 23:07
DX: K80.50 Calculus of bile duct without cholangitis or cholecystitis without obstruction (principal); E11.9 Type 2 diabetes mellitus without complications; E78.01 Familial hypercholesterolemia; F17.200 Nicotine dependence, unspecified, uncomplicated; Z91.041 Radiographic dye allergy status; Z79.4 Long term (current) use of insulin; Z79.84 Long term (current) use of oral hypoglycemic drugs; Z79.899 Other long term (current) drug therapy
CPT/HCPCS: 99284; 96374; 96375 ×2; 96361 ×2; 36415; 80053; 82150; 83690; 85025; 81001; 76705; J1200; J2765; J1170

== ENCOUNTER 2017-12-05 11:39 | Observation (INO) | payer OTHER ==
[2017-12-05] MEDS ORDERED: KETOROLAC 30 MG/ML 1 ML VIAL IVP STA (12:11)
[2017-12-05] MEDS ORDERED: SODIUM CHLORIDE 0.9% 1,000 ML IV STA (12:12)
[2017-12-05] MEDS ORDERED: METOCLOPRAMIDE 5 MG/ML 2 ML VIAL IVP STA (12:12)
--- NOTE | 2017-12-05 12:19 | ED ---
Seizure HPI - General Chief Complaint: Seizure Stated Complaint: seizure Time Seen by Provider: 12/05/17 12:03 Source: patient, EMS Mode of arrival: EMS - History of Present Illness Initial Comments: This 42-year-old white female presents via transfer from [facility] for seizures. She apparently had 3 seizures last night at home and to via EMS and route to the ER. The patient cannot remember the event. The duration of the seizures is unknown. It is unknown if these were tonic-clonic in nature. She relates that she had a history of 2 previous seizures this past year but none previously. She has not followed up with a neurologist in regard to her seizures. She is not on any antiseizure medication. She had a full workup at the other hospital and this did include computed tomography scan of the brain which was negative as well as EKG and laboratory analysis. Due to the patient having a total of 5 seizures she was transferred to our facility for further neurologic workup. The patient currently complains of a diffuse headache as well as some fatigue. She does relate a history of migraine headaches and this is similar but somewhat less severe than normal. She apparently received Versed and Valium via EMS and also received some Keppra intravenously at the other emergency department. She denies any other complaints or modifying factors. Past medical history does include type 2 diabetes mellitus, mixed hyperlipidemia, benign essential hypertension, coronary artery disease, history of myocardial infarction, sleep apnea with CPAP use, hepatic steatosis, arthritis of multiple joints, anxiety, and chronic pain syndrome. - Related Data Home Medications Medication Instructions Recorded Confirmed Gemfibrozil [Lopid] 600 mg PO DAILY 08/28/16 12/05/17 Insulin Glargine [Lantus] 30 units SQ DAILY 08/28/16 12/05/17 metFORMIN HCL 1,000 mg PO BID 08/28/16 12/05/17 Acetaminophen-Codeine 300-30mg 1 tab PO Q8H PRN 11/04/16 12/05/17 [Tylenol w/codeine #3] EPINEPHrine [Epipen 2-Germain] 0.3 mg IM ONCE PRN 11/04/16 12/05/17 Ezetimibe [Zetia] 10 mg PO DAILY 11/04/16 12/05/17 Ondansetron [Zofran] 4 mg PO Q8H PRN 11/04/16 12/05/17 Cyclobenzaprine [Flexeril] 10 mg PO TID PRN 12/05/17 12/05/17 Allergies Allergy/AdvReac Type Severity Reaction Status Date / Time Iodinated Contrast- Oral and Allergy Unknown Verified 12/05/17 11:50 IV Dye [Iodinated Contrast Media - IV Dye] Review of Systems ROS Statement: Those systems with pertinent positive or pertinent negative responses have been documented in the HPI. ROS Other: All systems not noted in ROS Statement are negative. Past Medical History Past Medical History: Chest Pain / Angina, Diabetes Mellitus, Hyperlipidemia, Myocardial Infarction ([place]) Additional Past Medical History / Comment(s): Familial Hypertriglyceridemia; Pancreatitis Last Myocardial Infarction Date:: 2007 History of Any Multi-Drug Resistant Organisms: None Reported Past Surgical History: Back Surgery, Cardiac Ablation Additional Past Surgical History / Comment(s): Ankle, Knee scope Past Anesthesia/Blood Transfusion Reactions: No Reported Reaction Past Psychological History: No Psychological Hx Reported Smoking Status: Current every day smoker Past Alcohol Use History: None Reported Past Drug Use History: None Reported - Past Family History Father Family Medical History: No Reported History General Exam - General Exam Comments Initial Comments: GENERAL: The patient is well nourished and well hydrated. VITAL SIGNS: Heart rate, blood pressure, respiratory rate reviewed as recorded in nurse's notes. EYES: Pupils are round and reactive. Extraocular movements are intact. No conjunctival / lid redness or swelling. ENT: No external evidence of injury, swelling, or ecchymosis. Airway is patent. Throat is clear. NECK: Nontender. No swelling or evidence of injury. No subcutaneous emphysema. Trachea is midline. No thyroid mass. HEART: Regular rate and rhythm. Good peripheral pulses. LUNGS/CHEST: Breath sounds clear and equal bilaterally. No rales, rhonchi, or wheezes. No ecchymosis, subcutaneous emphysema, or tenderness. ABDOMEN: Abdomen soft without tenderness. No palpable masses or organomegaly. No peritoneal signs. No abdominal wall swelling or ecchymosis. EXTREMITIES: No extremity tenderness. Normal muscle tone and function. No thoracolumbar tenderness. NEUROLOGIC: Sensation is grossly intact. Cranial nerve exam reveals face is symmetrical, tongue is midline, speech is clear. SKIN: No abrasions or ecchymosis is noted. No induration or masses noted. PSYCHIATRIC: Alert and oriented. Appropriate behavior and judgment. Course Vital Signs 12/05/17 11:43 Temperature 97.9 F Pulse Rate 66 Respiratory 14 Rate Blood Pressure 116/70 O2 Sat by Pulse 98 Oximetry Medical Decision Making - Medical Decision Making The patient was seen and examined. All diagnostics were reviewed. An IV was established and patient was mildly hydrated. She did receive some Toradol as well as Reglan for her headache. Old records were reviewed in detail. Her laboratory shows that she had a mild hypokalemia at 3.1. She also had a computed tomography scan of the brain which apparently is negative. She had a repeat computed tomography scan which was negative. She had a chest x-ray which did not show any acute process. The urinalysis did not show any infection. Is felt as though she would benefit from admission to the hospital with further workup and neurology consultation. The patient is agreeable. Case is discussed with Dr. Kaiser and he is agreeable to admission with neurology to consult. Disposition Clinical Impression: Recurrent seizures, Migraine, Hypokalemia Disposition: ADMITTED IP TO THIS HOSP Condition: Fair Referrals: Pino Lincoln MD [Primary Care Provider] - 1-2 days Time of Disposition: 12: Decision Date: 12/05/17 Decision Time: 12:19
[2017-12-05] MEDS ORDERED: LORazepam 2 MG/ML INJ IV PRN (12:21)
[2017-12-05] MEDS ORDERED: NALOXONE 0.4 MG/ML 1 ML VIAL IV PRN (12:21)
[2017-12-05] MEDS ORDERED: ONDANSETRON 4 MG/2 ML VIAL IVP PRN (12:21)
[2017-12-05] MEDS ORDERED: Acetaminophen-Codeine 300-30mg TAB PO PRN (12:26)
[2017-12-05] MEDS ORDERED: CYCLOBENZAPRINE 10 MG TAB PO PRN (12:26)
--- NOTE | 2017-12-05 16:42 | P.HPIM ---
History of Present Illness 42-year-old white female presents via transfer from [facility] for seizures. She apparently had 3 seizures last night at home and to via EMS and route to the ER. The patient cannot remember the event. The duration of the seizures is unknown. It is unknown if these were tonic-clonic in nature. She relates that she had a history of 2 previous seizures this past year but none previously. She has not followed up with a neurologist in regard to her seizures. She is not on any antiseizure medication. She had a full workup at the other hospital and this did include computed tomography scan of the brain which was negative as well as EKG and laboratory analysis. Due to the patient having a total of 5 seizures she was transferred to our facility for further neurologic workup. The patient currently complains of a diffuse headache as well as some fatigue. She does relate a history of migraine headaches and this is similar but somewhat less severe than normal. She apparently received Versed and Valium via EMS and also received some Keppra intravenously at the other emergency department. She denies any other complaints or modifying factors. Patient denied any fever chills nausea vomiting abdominal pain patient does not have any signs or symptoms of sepsis. She'll try presently denied any headache patient denied any loss of bowel or bladder continence during the episodes. Patient was confused after the episode and patient lost consciousness with the episode. Review of Systems REVIEW OF SYSTEMS: CONSTITUTIONAL: No fever, no malaise, no fatigue. HEENT: No recent visual problems or hearing problems. Denied any sore throat. CARDIOVASCULAR: No chest pain, orthopnea, PND, no palpitations, no syncope. PULMONARY: No shortness of breath, no cough, no hemoptysis. GASTROINTESTINAL: No diarrhea, no nausea, no vomiting, no abdominal pain. Normoactive bowel sounds. NEUROLOGICAL: Mentioned in HPI HEMATOLOGICAL: Denies any bleeding or petechiae. GENITOURINARY: Denies any burning micturition, frequency, or urgency. MUSCULOSKELETAL/RHEUMATOLOGICAL: Denies any joint pain, swelling, or any muscle pain. ENDOCRINE: Denies any polyuria or polydipsia. The rest of the 14-point review of systems is negative. Past Medical History Past Medical History: Chest Pain / Angina, Diabetes Mellitus, Hyperlipidemia, Myocardial Infarction ([place]), Seizure Disorder, Sleep Apnea/CPAP/BIPAP Additional Past Medical History / Comment(s): Previous 2 seizures in 2017, familial hypertriglyceridemia, pancreatitis, IDDM type II, migraines, in process of getting CPAP, arthritis multiple joints, chronic low back pain. Last Myocardial Infarction Date:: 2007 History of Any Multi-Drug Resistant Organisms: None Reported Past Surgical History: Back Surgery, Heart Catheterization, Orthopedic Surgery Additional Past Surgical History / Comment(s): Cardiac cath-normal, low back surgery, L ankle surgery for entrapped vessels, L knee arthroscopy. Past Anesthesia/Blood Transfusion Reactions: No Reported Reaction Smoking Status: Current every day smoker - Past Family History Father Family Medical History: Congestive Heart Failure (CHF) Additional Family Medical History / Comment(s): Father at the age of 59 yrs from CHF. Mother Family Medical History: Cancer, CVA/TIA, Myocardial Infarction ([place]) Additional Family Medical History / Comment(s): Mother has had CVAs and MIs with one ME while in her late 30's. She had renal carcinoma Medications and Allergies Home Medications Medication Instructions Recorded Confirmed Type Gemfibrozil [Lopid] 600 mg PO DAILY 08/28/16 12/05/17 History Insulin Glargine [Lantus] 30 units SQ DAILY 08/28/16 12/05/17 History metFORMIN HCL 1,000 mg PO BID 08/28/16 12/05/17 History Acetaminophen-Codeine 300-30mg 1 tab PO Q8H PRN 11/04/16 12/05/17 History [Tylenol w/codeine #3] EPINEPHrine [Epipen 2-Germ[place]] 0.3 mg IM ONCE PRN 11/04/16 12/05/17 History Ezetimibe [Zetia] 10 mg PO DAILY 11/04/16 12/05/17 History Ondansetron [Zofran] 4 mg PO Q8H PRN 11/04/16 12/05/17 History Cyclobenzaprine [Flexeril] 10 mg PO TID PRN 12/05/17 12/05/17 History Allergies Allergy/AdvReac Type Severity Reaction Status Date / Time Iodinated Contrast- Oral and Allergy Unknown Verified 12/05/17 11:50 IV Dye [Iodinated Contrast Media - IV Dye] Physical Exam Vitals: Vital Signs Temp Pulse Pulse Resp BP BP Pulse Ox 12/05/17 15:00 96.9 F L 65 16 125/71 99 12/05/17 13:49 98.1 F 59 L 20 137/56 99 12/05/17 13:14 58 L 18 126/73 98 12/05/17 12:29 64 20 122/69 96 12/05/17 11:43 97.9 F 66 14 116/70 98 Intake and Output 12/05/17 12/05/17 12/05/17 06:59 14:59 22:59 Other: Weight 91.626 kg Patient Weight 12/06/17 06:59 Weight 91.626 kg PHYSICAL EXAMINATION: GENERAL: The patient is alert and oriented x3, not in any acute distress. Well developed, well nourished. HEENT: Pupils are round and equally reacting to light. EOMI. No scleral icterus. No conjunctival pallor. Normocephalic, atraumatic. No pharyngeal erythema. No thyromegaly. CARDIOVASCULAR: S1 and S2 present. No murmurs, rubs, or gallops. PULMONARY: Chest is clear to auscultation, no wheezing or crackles. ABDOMEN: Soft, nontender, nondistended, normoactive bowel sounds. No palpable organomegaly. MUSCULOSKELETAL: No joint swelling or deformity. EXTREMITIES: No cyanosis, clubbing, or pedal edema. NEUROLOGICAL: Gross neurological examination did not reveal any focal deficits. SKIN: No rashes. Thrombosis Risk Factor Assmnt - Choose All That Apply Any of the Below Risk Factors Present?: Yes Each Factor Represents 1 point: Age 41-60 years, Obesity (BMI >25) Other Risk Factors: No Other congenital or acquired thrombophilia - If yes, enter type in comment: No Thrombosis Risk Factor Assessment Total Risk Factor Score: 2 Thrombosis Risk Factor Assessment Level: Low Risk Assessment and Plan Plan: -Generalized tonic-clonic seizures: Patient on seizure precautions Ativan as needed for seizures. Neurology was consulted sleeping and awake EEG will be obtained patient probably will require MRI leave the addition to neurology. -Coronary artery disease -Type 2 diabetes mellitus metformin will be held with concern of lactic acidosis secondary to seizures although I do not have lactic acid available at this time. Patient will be started on sliding scale insulin -Hypertension -Hyperlipidemia -Sleep apnea uses CPAP machine which will be continued. For above-mentioned chronic medical problems patient will be resumed on appropriate home medications
[2017-12-05 17:26] LABS: Glucose,Whole Blood 142 mg/dL (75-99)
[2017-12-05] MEDS ORDERED: metFORMIN 500 MG TAB PO SCH (17:30)
[2017-12-05] MEDS: INSULIN ASPART 100 UNIT/ML 1 ML 10 ML VIAL SQ SCH ×2 (17:41→21:25)
[2017-12-05 21:20] LABS: Glucose,Whole Blood 129 mg/dL (75-99)
[2017-12-06 07:22] LABS: Glucose,Whole Blood 133 mg/dL (75-99)
[2017-12-06] MEDS: INSULIN ASPART 100 UNIT/ML 1 ML 10 ML VIAL SQ SCH ×4 (07:46→21:07)
[2017-12-06] MEDS: ENOXAPARIN 40 MG/0.4 ML SYRINGE SQ SCH (07:46)
[2017-12-06] MEDS: PANTOPRAZOLE 40 MG/10 ML VIAL IV SCH (07:47)
[2017-12-06] MEDS: INSULIN DETEMIR 100 UNIT/ML 10 ML VIAL SQ SCH (07:47)
[2017-12-06] MEDS: GEMFIBROZIL 600 MG TAB PO SCH (07:48)
[2017-12-06] MEDS: EZETIMIBE 10 MG TAB PO SCH (07:48)
[2017-12-06 09:09] LABS: Basophils % (A) 0 %; Eosinophils # (A) 0.2 k/uL (0-0.7); Eosinophils % (A) 3 %; HCT 38.3 % (34.0-46.0); HGB 12.6 gm/dL (11.4-16.0); Lymphocytes # (A) 1.7 k/uL (1.0-4.8); Lymphocytes % (A) 29 %; MCH 28.6 pg (25.0-35.0); MCHC 32.9 g/dL (31.0-37.0); Mean Platelet Volume 7.3; Monocytes # (A) 0.4 k/uL (0-1.0); Monocytes % (A) 6 %; Neutrophils # (A) 3.6 k/uL (1.3-7.7); Neutrophils % (A) 60 %; Platelet Count 189 k/uL (150-450); RDW 13.6 % (11.5-15.5)
[2017-12-06 12:02] LABS: Glucose,Whole Blood 116 mg/dL (75-99)
[2017-12-06 13:29] LABS: ALT 22 U/L (9-52); AST 16 U/L (14-36); Albumin 3.4 g/dL (3.5-5.0); Alkaline Phosphatase 56 U/L (38-126); Anion Gap 10 mmol/L; Blood Urea Nitrogen 11 mg/dL (7-17); Carbon Dioxide 28 mmol/L (22-30); Chloride 103 mmol/L (98-107); Glucose 146 mg/dL (74-99); Potassium 4.3 mmol/L (3.5-5.1); Sodium 141 mmol/L (137-145); Total Bilirubin 0.2 mg/dL (0.2-1.3)
--- NOTE | 2017-12-06 15:32 | P.DS ---
Providers Date of admission: 12/05/17 12:21 Attending physician: Priscila Kaiser Consults: 12/05/17 12:24 Consult Physician Urgent Consulting Provider: Philip Maguire Consult Reason/Comments: seizures Do you want consulting provider notified?: Yes Primary care physician: Pino Atkinson [facility] Course: 43-year-old female admitted for new-onset seizures patient was evaluated by neurology very awaiting EEG results this is a second time headache patient has seizures because of which patient will need outpatient further evaluation for with an MRI but patient can be discharged now with 750 mg by mouth twice a day of Keppra, discussed with neurology and they cleared for discharge. PHYSICAL EXAMINATION: GENERAL: The patient is alert and oriented x3, not in any acute distress. Well developed, well nourished. HEENT: Pupils are round and equally reacting to light. EOMI. No scleral icterus. No conjunctival pallor. Normocephalic, atraumatic. No pharyngeal erythema. No thyromegaly. CARDIOVASCULAR: S1 and S2 present. No murmurs, rubs, or gallops. PULMONARY: Chest is clear to auscultation, no wheezing or crackles. ABDOMEN: Soft, nontender, nondistended, normoactive bowel sounds. No palpable organomegaly. MUSCULOSKELETAL: No joint swelling or deformity. EXTREMITIES: No cyanosis, clubbing, or pedal edema. NEUROLOGICAL: Gross neurological examination did not reveal any focal deficits. SKIN: No rashes. Assessment and Plan Plan: -Generalized tonic-clonic seizures: -Coronary artery disease -Type 2 diabetes mellitus -Hypertension -Hyperlipidemia -Sleep apnea uses CPAP machine which will be continued. Patient Condition at Discharge: Fair Plan - Discharge Summary Discharge Rx Participant: No New Discharge Prescriptions: New levETIRAcetam [Keppra] 750 mg PO Q12HR #60 tab No Action metFORMIN HCL 1,000 mg PO BID Insulin Glargine [Lantus] 30 units SQ DAILY Gemfibrozil [Lopid] 600 mg PO DAILY Acetaminophen-Codeine 300-30mg [Tylenol w/codeine #3] 1 tab PO Q8H PRN PRN Reason: Pain Ondansetron [Zofran] 4 mg PO Q8H PRN PRN Reason: Nausea And Vomiting EPINEPHrine [Epipen 2-Germ[place]] 0.3 mg IM ONCE PRN PRN Reason: Anaphylaxis Ezetimibe [Zetia] 10 mg PO DAILY Cyclobenzaprine [Flexeril] 10 mg PO TID PRN PRN Reason: Muscle Spasm Discharge Medication List Gemfibrozil [Lopid] 600 mg PO DAILY 08/28/16 [History] Insulin Glargine [Lantus] 30 units SQ DAILY 08/28/16 [History] metFORMIN HCL 1,000 mg PO BID 08/28/16 [History] Acetaminophen-Codeine 300-30mg [Tylenol w/codeine #3] 1 tab PO Q8H PRN 11/04/16 [History] EPINEPHrine [Epipen 2-Germ[place]] 0.3 mg IM ONCE PRN 11/04/16 [History] Ezetimibe [Zetia] 10 mg PO DAILY 11/04/16 [History] Ondansetron [Zofran] 4 mg PO Q8H PRN 11/04/16 [History] Cyclobenzaprine [Flexeril] 10 mg PO TID PRN 12/05/17 [History] levETIRAcetam [Keppra] 750 mg PO Q12HR #60 tab 12/06/17 [Rx] Follow up Appointment(s)/Referral(s): Pino Lincoln MD [Primary Care Provider] - 12/09/17 8:30 am Philip Maguire MD [STAFF PHYSICIAN] - 1 Week (Office will call you with appointment home. ) Patient Instructions/Handouts: New-Onset Seizure in Adults ([place]) Activity/Diet/Wound Care/Special Instructions: Glucometer and supplies order faxed to [facility]: ph#[phone] and fax# [phone] Diabetic , low fat diet. Diabetic folder given. Activity as tolerated. NO smoking, cessation information provided. No driving for 6 months or until neurologist says otherwise. Discharge Disposition: HOME SELF-CARE
[2017-12-06 16:48] LABS: Hemoglobin A1C 6.6 % (4.0-6.0)
[2017-12-06 17:26] LABS: Glucose,Whole Blood 100 mg/dL (75-99)
--- NOTE | 2017-12-06 18:05 | EEG ---
ELECTROENCEPHALOGRAM REPORT DATE OF SERVICE: 12/06/2017. REASON FOR TESTING: Seizure. CURRENT ANTIEPILEPTIC MEDICATIONS: None. DESCRIPTION OF THE PROCEDURE: This EEG was performed using a 21 channel digital electroencephalograph, following international 10-20 system. DESCRIPTION OF THE RECORDING: From the beginning of the tracing, and with patient's eyes closed, the background rhythm was mostly consisting of 10 hertz alpha frequency in the posterior occipital leads. No obvious asymmetry is seen. Hyperventilation was performed with no buildup of amplitude seen. No pathological waves were elicited. Photic stimulation was performed with a good driving response seen. No pathological waves were elicited. The patient remains awake throughout the tracing. Occasional movement and muscle artifacts are seen. No epileptiform discharges were seen. Her EKG lead showed a regular rate and rhythm. INTERPRETATION: This awake EEG can be considered within normal limits. There was no asymmetry seen. No epileptiform discharges were noticed. The absence of epileptiform discharges does not rule out the diagnosis of epilepsy, therefore clinical correlation is recommended. MMCHINYERE / IJN: [id number] /
--- NOTE | 2017-12-06 18:50 | P.CNNES ---
History of Present Illness Consult date: 12/06/17 Requesting physician: Priscila Kaiser Reason for Consult: Seizures History of Present Illness: Patient is a pleasant 42-year-old female who is being evaluated by the neurology service on 12/06/2017 per the request of Dr. Kaiser for seizures. Patient states she was at home getting ready for work and remembers making her way to the bathroom. Patient cannot recall anything after that. Reportedly her son's had called 911. The duration of the seizure is unknown. It is not clear if the seizures or tonic clonic in nature. Patient states she did have a seizure approximately a year ago and was not placed on any medication at that time. She was to follow-up with the neurologist and did not do so. Reportedly patient had 2 more seizures in the ambulance and has had a total of 5 seizures since presenting to the emergency room. Patient was a transfer from another facility and was given a loading dose of Keppra IV at that facility. Patient has not had any further seizures. Patient's labwork was essentially negative for any abnormality. Patient had CT done at previous facility and reportedly there were no abnormalities. EEG was done and is normal. At the time of my evaluation, patient is resting comfortably in bed and appears to be in no acute distress. Review of Systems REVIEW OF SYSTEMS: Otherwise unremarkable and noncontributory. Past Medical History Past Medical History: Chest Pain / Angina, Diabetes Mellitus, Hyperlipidemia, Myocardial Infarction ([place]), Seizure Disorder, Sleep Apnea/CPAP/BIPAP Additional Past Medical History / Comment(s): Previous 2 seizures in 2017, familial hypertriglyceridemia, pancreatitis, IDDM type II, migraines, in process of getting CPAP, arthritis multiple joints, chronic low back pain. Last Myocardial Infarction Date:: 2007 History of Any Multi-Drug Resistant Organisms: None Reported Past Surgical History: Back Surgery, Heart Catheterization, Orthopedic Surgery Additional Past Surgical History / Comment(s): Cardiac cath-normal, low back surgery, L ankle surgery for entrapped vessels, L knee arthroscopy. Past Anesthesia/Blood Transfusion Reactions: No Reported Reaction Smoking Status: Current every day smoker - Past Family History Father Family Medical History: Congestive Heart Failure (CHF) Additional Family Medical History / Comment(s): Father at the age of 59 yrs from CHF. Mother Family Medical History: Cancer, CVA/TIA, Myocardial Infarction ([place]) Additional Family Medical History / Comment(s): Mother has had CVAs and MIs with one [place] while in her late 30's. She had renal carcinoma Medications and Allergies Home Medications Medication Instructions Recorded Confirmed Type Gemfibrozil [Lopid] 600 mg PO DAILY 08/28/16 12/05/17 History Insulin Glargine [Lantus] 30 units SQ DAILY 08/28/16 12/05/17 History metFORMIN HCL 1,000 mg PO BID 08/28/16 12/05/17 History Acetaminophen-Codeine 300-30mg 1 tab PO Q8H PRN 11/04/16 12/05/17 History [Tylenol w/codeine #3] EPINEPHrine [Epipen 2-Germain] 0.3 mg IM ONCE PRN 11/04/16 12/05/17 History Ezetimibe [Zetia] 10 mg PO DAILY 11/04/16 12/05/17 History Ondansetron [Zofran] 4 mg PO Q8H PRN 11/04/16 12/05/17 History Cyclobenzaprine [Flexeril] 10 mg PO TID PRN 12/05/17 12/05/17 History levETIRAcetam [Keppra] 750 mg PO Q12HR #60 tab 12/06/17 Rx Allergies Allergy/AdvReac Type Severity Reaction Status Date / Time Iodinated Contrast- Oral and Allergy Unknown Verified 12/05/17 11:50 IV Dye [Iodinated Contrast Media - IV Dye] Physical Examination - Vital Signs Vital Signs: Vital Signs Temp Pulse Resp BP Pulse Ox 12/06/17 16:18 71 16 12/06/17 14:35 97.6 F 71 16 134/68 96 12/06/17 07:40 68 18 12/06/17 07:00 98.0 F 68 18 129/85 98 12/05/17 23:00 97.3 F L 63 17 133/69 97 Intake and Output 12/06/17 12/06/17 12/06/17 06:59 14:59 22:59 Intake Total 550 250 275 Balance 550 250 275 Intake: Oral 550 250 275 Other: # Voids 2 3 3 Weight 91.626 kg 91.626 kg Patient Weight 12/07/17 06:59 Weight 91.626 kg PHYSICAL EXAM: GENERAL APPEARANCE: Patient is a well-developed, female who appears to be in no acute distress. HEENT: Normocephalic, atraumatic, no facial asymmetry is seen. Neck is supple with no masses felt. CARDIOVASCULAR: Regular rate and rhythm. ABDOMEN: Nontender, nondistended. EXTREMITIES: Show no edema or clubbing. NEUROLOGICAL EXAM: Patient is awake, alert, and oriented 3. Speech and language are normal. Strength is full in all 4 extremities. Sensory exam to light touch is normal in all 4 extremities. No facial asymmetry is seen on cranial nerve testing. No tremors or seizure-like activity noted. Results - Laboratory Findings CBC and BMP: 12/06/17 08:35 12/06/17 08:35 Abnormal Lab Findings: Abnormal Labs 12/05/17 12/05/17 12/06/17 17:24 21:11 07:20 Glucose POC Glucose (mg/dL) 142 H 129 H 133 H Total Protein Albumin 12/06/17 12/06/17 12/06/17 08:35 12:00 17:22 Glucose 146 H POC Glucose (mg/dL) 116 H 100 H Total Protein 6.0 L Albumin 3.4 L Assessment and Plan Plan: Impression: 1. Seizures 2. Diabetes mellitus 3. Hyperlipidemia 4. Sleep apnea Recommendations: It does appear patient had multiple generalized tonic-clonic seizures. Patient was taken [facility] and had a total of 5 seizures. Patient was transferred to [facility] for further treatment. Patient was loaded with [facility] and has not had any further seizures since. EEG was done which was normal and showed no epileptiform discharges. Due to history of prior seizure approximately a year ago, I recommend she be placed on antiepileptic medication. I will start her on Keppra 750 mg by mouth twice a day. She'll need an MRI of the brain to be done as an outpatient. She needs to follow up in the office. Patient is stable from a neurological standpoint. I will continue to follow with you on an as-needed basis. Feel free to call with any questions or concerns. Thank you for allowing me to participate in the care of your patient. Feel free to call with any questions or concerns. I performed an examination of the patient and discussed the management with the ROLLER MILL TENDER. I have reviewed the ROLLER MILL TENDER notes and agree with the findings and plan of care.
[2017-12-06 21:06] LABS: Glucose,Whole Blood 181 mg/dL (75-99)
[2017-12-07 06:29] VITALS: BP 133/78; PULSE 66; RESP 20; TEMP 98.3
[2017-12-07 07:35] LABS: Glucose,Whole Blood 134 mg/dL (75-99)
[2017-12-07] MEDS: INSULIN ASPART 100 UNIT/ML 1 ML 10 ML VIAL SQ SCH (08:02)
[2017-12-07] MEDS: ENOXAPARIN 40 MG/0.4 ML SYRINGE SQ SCH (08:02)
[2017-12-07] MEDS: INSULIN DETEMIR 100 UNIT/ML 10 ML VIAL SQ SCH (08:03)
[2017-12-07] MEDS: GEMFIBROZIL 600 MG TAB PO SCH (08:03)
[2017-12-07] MEDS: EZETIMIBE 10 MG TAB PO SCH (08:03)
[2017-12-07] MEDS: PANTOPRAZOLE 40 MG/10 ML VIAL IV SCH (08:03)
== END 2017-12-07 09:08 | disposition home or self-care (01) ==
LOC: EC 11:39 → 4MS4W 12:21 → INTOOBSV 12:21 → 4MS4W 13:35 → UNDODISIN 12-07 09:08
PROVIDERS: ADMIT Internal Medicine; ATTEND Internal Medicine
DX: G40.409 Other generalized epilepsy and epileptic syndromes, not intractable, without status epilepticus (principal); K76.0 Fatty (change of) liver, not elsewhere classified; E11.9 Type 2 diabetes mellitus without complications; G47.30 Sleep apnea, unspecified; I25.10 Atherosclerotic heart disease of native coronary artery without angina pectoris; F17.200 Nicotine dependence, unspecified, uncomplicated; I10 Essential (primary) hypertension; E87.6 Hypokalemia; E78.2 Mixed hyperlipidemia; G89.4 Chronic pain syndrome; G43.909 Migraine, unspecified, not intractable, without status migrainosus; M19.90 Unspecified osteoarthritis, unspecified site; Z86.79 Personal history of other diseases of the circulatory system; Z79.899 Other long term (current) drug therapy; Z91.041 Radiographic dye allergy status; Z79.4 Long term (current) use of insulin; Z82.49 Family history of ischemic heart disease and other diseases of the circulatory system; Z82.3 Family history of stroke; Z80.51 Family history of malignant neoplasm of kidney; I25.2 Old myocardial infarction; Z99.89 Dependence on other enabling machines and devices; Z71.6 Tobacco abuse counseling
CPT/HCPCS: 96361 ×3; 96374; 96375; 99285; 95819; 80053; 85025; 83036; G0378 ×3; J2765; J1885

== ENCOUNTER → 2017-12-19 | Outpatient (CLI) | payer OTHER ==
--- NOTE | 2017-12-19 14:22 | MR ---
MR brain without contrast HISTORY: Epilepsy, G 40.909, seizure disorder Multiplanar multisequence imaging through the brain Correlation to CT brain dated 12/05/2017 There is no restricted diffusion. There is no hemorrhage or hydrocephalus. Corpus callosum, pituitary , cervical medullary junction, cerebellopontine angles are normal. The orbits show symmetric appearan ce. There are normal vascular flow voids. Brain signal is normal. Choroidal fissure cysts noted incid entally. IMPRESSION: No abnormality evident to account for patient's symptoms. Normal brain MRI.
== END | disposition home or self-care (01) ==
LOC: RADMRIMAIN 12:17
PROVIDERS: ATTEND Family Medicine
DX: G40.909 Epilepsy, unspecified, not intractable, without status epilepticus (principal)
CPT/HCPCS: 70551

== ENCOUNTER → 2018-03-20 | Outpatient (CLI) | payer OTHER ==
--- NOTE | 2018-03-20 14:35 | SFUN ---
SLEEP CENTER FOLLOW UP NOTE DATE OF SERVICE: 03/20/2018 42-year-old lady who has been followed in [facility] for treatment of obstructive sleep apnea-hypopnea syndrome. Recently patient had a home sleep apnea test which showed severe obstructive sleep apnea and subsequently after that she had CPAP titration. During titration her respiration was under control with a pressure of 7 cm of water. I explained the results of the sleep studies to the patient. The patient was started on treatment with CPAP in trying to use equipment every night for the whole night, but sometimes there is a condensation in the tube and she may have some difficulties because of that. She does not snore while using her CPAP unit and feels better when she is using it. I checked CPAP unit. CPAP pressure is 7 cm of water usage is /30 nights. Usage more than 4 hours nights. Average usage 4.1 hour. Pressure is 7 cm of water. Leak is 0 L/minute. Apnea-hypopnea index only 1.1, which is perfect. Humidifier at the level of 4. MEDICATIONS: Metformin, Lopid, Lantus, Tylenol, Zofran, Keppra. PHYSICAL EXAM: GENERAL Patient in no distress. VITAL SIGNS BP 131/82, HR 104, RR 16, weight 213, temp 98.1, oxygen saturation room air 95%. HEENT PERRLA, EOMI, evaluation of oropharynx showed low position of soft palate. NECK Supple, no JVD. Thyroid is not palpable. LUNGS Clear to percussion and to auscultation. Good air exchange. No wheezing or rhonchi. HEART S1, S2 regular. No murmurs, gallops, or rubs. ABDOMEN Slightly obese. Soft and nontender. Bowel sounds are present. No organomegaly appreciated. EXTREMITIES No clubbing or cyanosis. GENERAL PRODUCTION WORKER Awake, alert, and oriented X3. Cranial nerves 2 to 7 intact. There is no fasciculation or atrophy. noted. No focal deficits observed. IMPRESSION: 1. Severe obstructive sleep apnea-hypopnea syndrome on full control with CPAP at 7 cm of water. Patient demonstrated borderline compliance with treatment benefitting from treatment. 2. Mild obesity. 3. Seizure disorder. 4. Diabetes mellitus. 5. History of heart attack in 2007. 6. Status post left ankle surgery. 7. Status post left knee surgery. 8. History of pancreatitis. 9. Several thyroid nodules. The patient on followup for that. 10.Status post back surgery. PLAN: 1. Patient should put her CPAP unit lower than the level of her head . 2. I adjusted her humidity down to 3. 3. She will continue to use CPAP equipment every night for the whole night. 4. I explained patient how to adjust humidity. 5. Losing weight. 6. Prescription for all necessary CPAP supplies. 7. Followup visit in 1 year or earlier if patient has any problems. Thank you very much for allowing me to participate in management of your patient. Sincerely, Seth Porter MD, PhD, FAASM Diplomat of [place] [employer] Tester Operator [employer] [facility] [place] MMODL / IJN: [id number] /
== END | disposition home or self-care (01) ==
LOC: SLEEP 13:06
PROVIDERS: ATTEND Internal Medicine
DX: G47.33 Obstructive sleep apnea (adult) (pediatric) (principal); E66.9 Obesity, unspecified; G40.909 Epilepsy, unspecified, not intractable, without status epilepticus; E04.2 Nontoxic multinodular goiter; E11.9 Type 2 diabetes mellitus without complications; Z98.890 Other specified postprocedural states; Z86.79 Personal history of other diseases of the circulatory system; Z87.19 Personal history of other diseases of the digestive system; Z79.84 Long term (current) use of oral hypoglycemic drugs; Z79.899 Other long term (current) drug therapy; Z99.89 Dependence on other enabling machines and devices

== ENCOUNTER → 2018-05-30 | Outpatient (CLI) | payer OTHER ==
[2018-05-30 10:45] VITALS: BP 146/91; PULSE 87; BMI 31.4
--- NOTE | 2018-05-30 11:15 | P.GSHP ---
History of Present Illness H&P Date: 05/30/18 The patient is a 42-year-old white female who on a routine mammogram was noted to have a nodular density in the posterior margin of the right breast. This was done 04-04. The patient subsequently had diagnostic views of the breast done and it was recommended she have an ultrasound performed of the right breast. An ultrasound a small cyst was seen at the site of the nodular change. It was recommended that she have precautionary 6 month follow-up diagnostic right breast mammogram. The patient does not feel anything of concern in her breast. The patient denies any nipple discharge or changes. The patient has undergone stereotactic core biopsy of the right breast in the past which was benign. Family history: 1. mother kidney cancer 2. sister of cervical cancer in her 30's 3. sister breast cancer in her 40's, both breast had genetic testing and told negative 4. brother: lung cancer Hormonal history: menarche: 10 : 6, 5 live births breast fed: none, first at 14 periods irregular uterine ablation done BCP: less than a year hormones: none Past Surgical History: 1. left ankle surgery 2. knee scope 3. ruptured disc in her back 4. sterobiopsy of the right breast 5. uterine ablation Past Medical History: 1. seizures 2. arthritis in her back 3. ruptured disc 4. migrains 5. history of pancreatits Social History: smoke: 1 PPD alcohol: none drugs: none - Constitutional Constitutional: Denies chills, Denies fever - EENT Eyes: denies blurred vision, denies pain Ears: deny: decreased hearing, tinnitus Ears, nose, mouth and throat: Reports headache, Denies sore throat - Breasts Breasts: bilateral: as per HPI - Cardiovascular Comment: myocardial infarction Cardiovascular: Denies chest pain, Denies shortness of breath - Respiratory Comment: smoker, used CPAP Respiratory: Reports cough - Gastrointestinal Comment: pancreatiis by history Gastrointestinal: Denies abdominal pain, Denies diarrhea, Denies nausea, Denies vomiting - Genitourinary (Female) Comment: uterine ablation Genitourinary: Denies dysuria, Denies hematuria - Menstruation Comment: uterine ablation - Musculoskeletal Comment: arthritis in back and hands - Integumentary Integumentary: Denies pruritus, Denies rash - Neurological Comment: sciatica Neurological: Reports seizures, Denies numbness, Denies weakness - Psychiatric Psychiatric: Denies anxiety, Denies depression - Endocrine Comment: diabetic Endocrine: Denies fatigue, Denies weight change - Hematologic/Lymphatic Comment: none - Allergic/Immunologic Allergic/Immunologic: Reports seasonal allergies Past Medical History Past Medical History: Chest Pain / Angina, Diabetes Mellitus, Hyperlipidemia, Myocardial Infarction ([place]), Seizure Disorder, Sleep Apnea/CPAP/BIPAP Additional Past Medical History / Comment(s): Previous 2 seizures in 2017, familial hypertriglyceridemia, pancreatitis, IDDM type II, migraines, in process of getting CPAP, arthritis multiple joints, chronic low back pain. Last Myocardial Infarction Date:: 2007 History of Any Multi-Drug Resistant Organisms: None Reported Past Surgical History: Back Surgery, Heart Catheterization, Orthopedic Surgery Additional Past Surgical History / Comment(s): Cardiac cath-normal, low back surgery, L ankle surgery for entrapped vessels, L knee arthroscopy. Past Anesthesia/Blood Transfusion Reactions: No Reported Reaction Past Psychological History: No Psychological Hx Reported Additional Psychological History / Comment(s): Pt resides with her spouse and their 2 children, ages 14yrs and 17yrs. 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 Pt is independent. Smoking Status: Current every day smoker Past Alcohol Use History: Rare Additional Past Alcohol Use History / Comment(s): Pt started smoking in 1989 and is a ppd smoker. Past Drug Use History: None Reported - Past Family History Father Family Medical History: Congestive Heart Failure (CHF) Additional Family Medical History / Comment(s): Father at the age of 59 yrs from CHF. Mother Family Medical History: Cancer, CVA/TIA, Myocardial Infarction ([place]) Additional Family Medical History / Comment(s): Mother has had CVAs and MIs with one [place] while in her late 30's. She had renal carcinoma Sister(s) Family Medical History: Cancer Additional Family Medical History / Comment(s): sister with cervical cancer, at the age 37 Medications and Allergies Home Medications Medication Instructions Recorded Confirmed Type Gemfibrozil [Lopid] 600 mg PO DAILY 08/28/16 12/05/17 History Insulin Glargine [Lantus] 30 units SQ DAILY 08/28/16 12/05/17 History metFORMIN HCL 1,000 mg PO BID 08/28/16 12/05/17 History Acetaminophen-Codeine 300-30mg 1 tab PO Q8H PRN 11/04/16 12/05/17 History [Tylenol w/codeine #3] EPINEPHrine [Epipen 2-Germain] 0.3 mg IM ONCE PRN 11/04/16 12/05/17 History Ezetimibe [Zetia] 10 mg PO DAILY 11/04/16 12/05/17 History Ondansetron [Zofran] 4 mg PO Q8H PRN 11/04/16 12/05/17 History Cyclobenzaprine [Flexeril] 10 mg PO TID PRN 12/05/17 12/05/17 History levETIRAcetam [Keppra] 750 mg PO Q12HR #60 tab 12/06/17 Rx Allergies Allergy/AdvReac Type Severity Reaction Status Date / Time Iodinated Contrast- Oral and Allergy Unknown Verified 12/05/17 11:50 IV Dye [Iodinated Contrast Media - IV Dye] Surgical - Exam Vital Signs Pulse BP Pulse Ox 87 146/91 98 05/30/18 10:41 05/30/18 10:41 05/30/18 10:41 - General well developed, well nourished, no distress - Eyes normal ocular movement - ENT no hearing loss, no congestion - Neck no masses, trachea midline - Respiratory normal respiratory effort right: wheezing (at base) - Cardiovascular Rhythm: regular Heart Sounds: normal: S1, S2 - Abdomen Abdomen: soft, non tender, no guarding, no rigid, no rebound - Neurologic no disoriented, no combative - Musculoskeletal normal gait, normal posture - Psychiatric oriented to time, oriented to person, oriented to place, speech is normal, memory intact Estimated examination: Patient with a small papular rash over both of her breast felt to be related to laundry detergent she will follow if this does not go away after switching her laundry detergent Right breast: Multi-positional exam very dense fibrocystic changes with increased nodularity in the upper inner quadrant area, nipple ring in place The right axilla: No adenopathy of concern Left breast: Multiple positional exam dense fibrocystic tissue no discrete nodularity similar to that which is felt in the right breast Left axilla: No adenopathy of concern Results Radiographic reports reviewed Assessment and Plan Assessment: Impression: 1. Radiographic abnormality right breast most likely benign cyst 2. Physical examination of right breast increased nodularity upper inner quadrant area for which FNA is recommended 3. Seizure disorder 4. Arthritis 6. Smoker with COPD 7. History of myocardial infarction 8. History of anxiety/depression Plan: 1. Repeat right breast mammogram diagnostic in 6 months 2. FNA of area of increased nodularity in the upper inner quadrant of the right breast depending on results of this further recommendation to follow 3. Medical management of medical problems 4. Follow-up in one week for results of FNA The risk and benefits of FNA discussed with the patient. The area of the breast was prepped using alcohol a small 22-gauge needle was passed into the area of concern and cord fine needle cytology was obtained. This was placed on a slide and sent to pathology.
== END | disposition home or self-care (01) ==
LOC: WWCWWP 10:24
PROVIDERS: ATTEND Surgery
DX: N63.0 Unspecified lump in unspecified breast (principal); N60.01 Solitary cyst of right breast; R92.8 Other abnormal and inconclusive findings on diagnostic imaging of breast
CPT/HCPCS: 88173

== ENCOUNTER 2018-09-22 13:10 | Emergency (ER) | payer OTHER ==
[2018-09-22 13:43] VITALS: RESP 18
[2018-09-22] MEDS ORDERED: KETOROLAC 30 MG/ML 1 ML VIAL IM STA (15:52)
--- NOTE | 2018-09-22 16:10 | XR ---
EXAMINATION TYPE: XR knee complete LT DATE OF EXAM: 09/22/2018 COMPARISON: None HISTORY: Pain TECHNIQUE: Three-view left knee FINDINGS: Joint spaces are preserved. No joint effusion is evident. No acute fractures or dislocation s are evident. Follow-up exam can be performed 7-10 days from acute trauma for continued pain. IMPRESSION: 1. Normal three-view left knee.
[2018-09-22] MEDS ORDERED: LIDOCAINE 1% INJ 10MG/ML (20 ML MDV) SQ ONE (16:34)
--- NOTE | 2018-09-22 17:40 | ED ---
Extremity Problem HPI - General Chief complaint: Extremity Problem,Nontraumatic Stated complaint: Knee pain Time Seen by Provider: 09/22/18 14:51 Source: patient Mode of arrival: wheelchair Limitations: no limitations - History of Present Illness Initial comments: 42-year-old female past medical history of osteoarthritis presenting today for chief complaint of left knee pain and swelling. Patient states that 3 weeks ago she began experiencing left knee swelling, she states that she was seen by her primary care provider who prescribed her anti-inflammatory medications. Patient states that since the swelling has gone down however the past 2-3 days as increased. Patient admits to pain with range of motion. Patient denies any redness or warmth joint. Patient denies any fever, chills, night sweats or general malaise. Patient denies any recent trauma to the left knee. Patient states she is able to ambulate on the left knee. Patient denies any numbness, tingling, loss sensation or muscle weakness. Remainder of ROS negative, Patient denies shortness of breath, chest pain, back pain, abdominal pain, nausea or vomiting, numbness or tingling, dysuria or hematuria, constipation or diarrhea, headaches or visual changes, or any other complaints. Upon arrival patient is well-appearing, nontoxic. Afebrile. - Related Data Home Medications Medication Instructions Recorded Confirmed Gemfibrozil [Lopid] 600 mg PO DAILY 08/28/16 09/22/18 Insulin Glargine [Lantus] 30 units SQ DAILY 08/28/16 09/22/18 metFORMIN HCL 1,000 mg PO BID 08/28/16 09/22/18 Acetaminophen-Codeine 300-30mg 1 tab PO Q8H PRN 11/04/16 09/22/18 [Tylenol w/codeine #3] EPINEPHrine [Epipen 2-Germain] 0.3 mg IM ONCE PRN 11/04/16 09/22/18 Ezetimibe [Zetia] 10 mg PO DAILY 11/04/16 09/22/18 Ondansetron [Zofran] 4 mg PO Q8H PRN 11/04/16 09/22/18 Cyclobenzaprine [Flexeril] 10 mg PO TID PRN 12/05/17 09/22/18 Lacosamide [Vimpat] 200 mg PO BID 09/22/18 09/22/18 levETIRAcetam [Keppra] 1,000 mg PO Q12HR 09/22/18 09/22/18 Previous Rx's Medication Instructions Recorded Ibuprofen 800 mg PO Q8H PRN 7 Days #21 tablet 09/22/18 Allergies Allergy/AdvReac Type Severity Reaction Status Date / Time Iodinated Contrast- Oral and Allergy Unknown Verified 09/22/18 13:43 IV Dye [Iodinated Contrast Media - IV Dye] Review of Systems ROS Statement: Those systems with pertinent positive or pertinent negative responses have been documented in the HPI. ROS Other: All systems not noted in ROS Statement are negative. Constitutional: Denies: fever, chills ENT: Denies: throat pain Respiratory: Denies: as per HPI, cough, dyspnea, wheezes, hemoptysis, stridor Cardiovascular: Denies: chest pain, palpitations Endocrine: Denies: fatigue Gastrointestinal: Denies: abdominal pain, nausea, vomiting, diarrhea, constipation Genitourinary: Denies: urgency, dysuria, frequency Musculoskeletal: Reports: joint swelling, arthralgia. Denies: back pain Skin: Denies: rash, lesions, change in color Neurological: Denies: weakness Past Medical History Past Medical History: Chest Pain / Angina, Diabetes Mellitus, Hyperlipidemia, Myocardial Infarction ([place]), Seizure Disorder, Sleep Apnea/CPAP/BIPAP Additional Past Medical History / Comment(s): Previous 2 seizures in 2017, familial hypertriglyceridemia, pancreatitis, IDDM type II, migraines, in process of getting CPAP, arthritis multiple joints, chronic low back pain. Last Myocardial Infarction Date:: 2007 History of Any Multi-Drug Resistant Organisms: None Reported Past Surgical History: Back Surgery, Heart Catheterization, Orthopedic Surgery Additional Past Surgical History / Comment(s): Cardiac cath-normal, low back surgery, L ankle surgery for entrapped vessels, L knee arthroscopy. Past Anesthesia/Blood Transfusion Reactions: No Reported Reaction Past Psychological History: No Psychological Hx Reported Smoking Status: Current every day smoker Past Alcohol Use History: Rare Past Drug Use History: None Reported - Past Family History Father Family Medical History: Congestive Heart Failure (CHF) Additional Family Medical History / Comment(s): Father at the age of 59 yrs from CHF. Mother Family Medical History: Cancer, CVA/TIA, Myocardial Infarction ([place]) Additional Family Medical History / Comment(s): Mother has had CVAs and MIs with one [place] while in her late 30's. She had renal carcinoma Sister(s) Family Medical History: Cancer Additional Family Medical History / Comment(s): sister with cervical cancer, at the age 37 General Exam - General Exam Comments Initial Comments: General: The patient is awake and alert, in no distress, and does not appear acutely ill. Eye: Pupils are equal, round and reactive to light, extra-ocular movements are intact. No nystagmus. There is normal conjunctiva bilaterally. No signs of icterus. Ears, nose, mouth and throat: There are moist mucous membranes and no oral lesions. Neck: The neck is supple, there is no tenderness or JVD. Cardiovascular: There is a regular rate and rhythm. No murmur, rub or gallop is appreciated. Respiratory: Lungs are clear to auscultation, respirations are non-labored, breath sounds are equal. No wheezes, stridor, rales, or rhonchi. Musculoskeletal: No soft tissue swelling of the left knee in comparison with the right, there is no erythema or warmth to palpation. Patient is able to range at the left knee however not fully secondary to pain. Strength 5/5 of the LE equally b/l. Sensation intact of the LE equally b/l. DP pulses equal bilaterally 2+. Compartments are soft and compressible. Capillary refill less than 2 seconds. No evidence of foot drop. Neurological: A&O x 3. CN II-XII intact, There are no obvious motor or sensory deficits. Coordination appears grossly intact. Speech is normal. Skin: Skin is warm and dry and no rashes or lesions are noted. Psychiatric: Cooperative, appropriate mood & affect, normal judgment. Limitations: no limitations Course Vital Signs 09/22/18 09/22/18 13:40 18:00 Temperature 98.0 F 98.6 F Pulse Rate 84 78 Respiratory 18 18 Rate Blood Pressure 109/58 126/71 O2 Sat by Pulse 98 98 Oximetry Procedures - Joint Aspiration/Injection Consent Obtained: verbal consent Time Out Performed: Yes Indications: to relieve pressure/pain Side of Body: left Joint Aspirated: knee Ultrasound Guidance: No Skin Prep: Chlorhexidine Local Anesthesia Used: Lidocaine 1% Amount of Anesthesia Used (mLs): 10 Needle Size Used: 18G Syringe Size Used: 20cc Fluid Obtained: bloody Total Fluid Obtained (mls): 1 Patient Tolerated Procedure: well, no complications Complications: none Additional Comments: Appropriate placement of needle, felt penetration into joint capsule. Unable to obtain fluid. Small amout of blood obtained from trauma. Sterile methods used Medical Decision Making - Medical Decision Making There is swelling on examination of the left knee. Patient is able to range however limited secondary to pain. Patient does admit to similar symptoms 3 weeks ago, that subsided and then returned. Given this pattern I do feel this swelling is mostly related to her osteoarthritis. X-ray negative for significant intra-articular joint effusion. There is no warmth palpation or erythema of the joint. No pain out of proportion. Joint aspiration was obtained in order for symptomatically, and diagnostic testing. We were unable to obtain fluid from knee, there was only blood from trauma from needle. Procedure performed using sterile measures. Savage bandage applied to left knee, as well as a knee immobilizer. Dr. Jon evaluated patient face to face, he agrees with impression and plan. Patient will be discharged with orthopedic surgery follow-up in next 1-2 days as well as primary care f/u. Patient was given strict return parameters for return for any fever, chills, night sweats, erythema joint or increase or worsening pain. Patient verbalizes understanding and is agreeable with plan. Patient denies questions at this time. Pt discharged in stable condition. Disposition Clinical Impression: Swelling of left knee joint, Left knee pain Disposition: HOME SELF-CARE Condition: Good Instructions: Swollen Knee Joint (ED) Additional Instructions: Please use medication as discussed. Please follow-up with orthopedic surgery in next 24-48 hours. Please return to emergency room if the symptoms increase or worsen or for any other concerns, including fever, nightsweats, general malaise. Redness of knee joint or worsening symptoms. Prescriptions: Ibuprofen 800 mg PO Q8H PRN 7 Days #21 tablet PRN Reason: Pain Is patient prescribed a controlled substance at d/c from ED?: No Referrals: Pino Lincoln MD [Primary Care Provider] - 1-2 days Vasu Roe MD [STAFF PHYSICIAN] - 1-2 days Time of Disposition: 17:40
[2018-09-22 18:30] VITALS: BP 126/71; PULSE 78; TEMP 98.6
== END 2018-09-22 18:00 | disposition home or self-care (01) ==
LOC: EC 13:10
DX: M25.462 Effusion, left knee (principal); E78.5 Hyperlipidemia, unspecified; E11.9 Type 2 diabetes mellitus without complications; G40.909 Epilepsy, unspecified, not intractable, without status epilepticus; I25.2 Old myocardial infarction; F17.200 Nicotine dependence, unspecified, uncomplicated; Z91.041 Radiographic dye allergy status; Z79.4 Long term (current) use of insulin; Z79.899 Other long term (current) drug therapy; Z95.818 Presence of other cardiac implants and grafts
CPT/HCPCS: 73562; 99283; 20610; 96372; L1830; J2001; J1885

== ENCOUNTER 2019-07-04 03:59 | Observation (INO) | payer OTHER ==
--- NOTE | 2019-07-04 04:39 | ED ---
Chest Pain HPI - General Source: patient, EMS Mode of arrival: EMS Limitations: no limitations <Chavo Ibrahim - Last Filed: 07/04/19 06:41> <Lara Narvaez - Last Filed: 07/11/19 02:51> - General Chief Complaint: Chest Pain Stated Complaint: Chest Pain Time Seen by Provider: 07/04/19 04:21 - History of Present Illness Initial Comments: Patient is a 43-year-old female with history of MIs presenting to the emergency department with a chief complaint of chest pain. [facility] and initial cardiac workup was completed. Patient had a nonspecific T-wave abnormality there with no ST elevations. Initial troponins were negative. Patient has a history of [place] but no stenting. Patient does have hypercholesterolemia and is a smoker. Patient does have positive family history of cardiovascular disease. Patient was transferred to [facility] ED for cardiac monitoring. (Chavo Ibrahim) - Related Data Home Medications Medication Instructions Recorded Confirmed Gemfibrozil [Lopid] 600 mg PO BID 08/28/16 07/04/19 Insulin Glargine [Lantus] 40 units SQ HS 08/28/16 07/04/19 metFORMIN HCL 1,000 mg PO BID 08/28/16 07/04/19 Acetaminophen-Codeine 300-30mg 1 tab PO Q12H PRN 11/04/16 07/04/19 [Tylenol w/codeine #3] Ondansetron [Zofran] 4 mg PO Q8H PRN 11/04/16 07/04/19 Lacosamide [Vimpat] 200 mg PO BID 09/22/18 07/04/19 levETIRAcetam [Keppra] 1,000 mg PO BID 09/22/18 07/04/19 ALPRAZolam [Xanax] 0.25 mg PO HS PRN 07/04/19 07/04/19 Ertugliflozin Pidolate [Steglatro] 5 mg PO DAILY 07/04/19 07/04/19 Previous Rx's Medication Instructions Recorded Albuterol Inhaler [Ventolin Hfa 1 - 2 puff INHALATION RT-Q6H PRN 07/05/19 Inhaler] #1 inhaler Cefuroxime Axetil [Ceftin] 500 mg PO BID 3 Days #6 tab 07/05/19 Pantoprazole [Protonix] 40 mg PO DAVID-BRKFST #28 tablet. 07/07/19 Allergies Allergy/AdvReac Type Severity Reaction Status Date / Time Iodinated Contrast Media Allergy Unknown Verified 07/04/19 08:14 [Iodinated Contrast Media - IV Dye] Review of Systems ROS Other: All systems not noted in ROS Statement are negative. <Chavo Ibrahim - Last Filed: 07/04/19 06:41> ROS Other: All systems not noted in ROS Statement are negative. <Lara Narvaez - Last Filed: 07/11/19 02:51> ROS Statement: Those systems with pertinent positive or pertinent negative responses have been documented in the HPI. EKG Findings - EKG Comments: EKG Findings:: Normal sinus rhythm, moderate voltage criteria for LVH. Nonspecific T waves. Ventricular rate 79, MT interval 164, QRS duration 90, QT/QTC 372/426, p-r-t axes 29 -7 36 <Chavo Ibrahim - Last Filed: 07/04/19 06:41> Past Medical History Past Medical History: Chest Pain / Angina, Diabetes Mellitus, Hyperlipidemia, Myocardial Infarction ([place]), Seizure Disorder, Sleep Apnea/CPAP/BIPAP Additional Past Medical History / Comment(s): Previous 2 seizures in 2017, familial hypertriglyceridemia, pancreatitis, IDDM type II, migraines, in process of getting CPAP, arthritis multiple joints, chronic low back, [place] 2007. Last Myocardial Infarction Date:: 2007 History of Any Multi-Drug Resistant Organisms: None Reported Past Surgical History: Back Surgery, Heart Catheterization, Orthopedic Surgery Additional Past Surgical History / Comment(s): Cardiac cath-normal, low back surgery, L ankle surgery for entrapped vessels, L knee arthroscopy. Past Anesthesia/Blood Transfusion Reactions: No Reported Reaction Past Psychological History: No Psychological Hx Reported Smoking Status: Current every day smoker Past Alcohol Use History: Rare Past Drug Use History: None Reported - Past Family History Father Family Medical History: Congestive Heart Failure (CHF) Additional Family Medical History / Comment(s): Father at the age of 59 yrs from CHF. Mother Family Medical History: Cancer, CVA/TIA, Myocardial Infarction ([place]) Additional Family Medical History / Comment(s): Mother has had CVAs and MIs with one [place] while in her late 30's. She had renal carcinoma Sister(s) Family Medical History: Cancer Additional Family Medical History / Comment(s): sister with cervical cancer, at the age 37 <Chavo Ibrahim - Last Filed: 07/04/19 06:41> General Exam Limitations: no limitations General appearance: alert, in no apparent distress Head exam: Present: atraumatic, normocephalic, normal inspection Eye exam: Present: normal appearance, PERRL, EOMI Pupils: Present: normal accommodation ENT exam: Present: normal exam, normal oropharynx, mucous membranes moist, TM's normal bilaterally, normal external ear exam Neck exam: Present: normal inspection, full ROM Respiratory exam: Present: normal lung sounds bilaterally Cardiovascular Exam: Present: regular rate, normal rhythm, normal heart sounds GI/Abdominal exam: Present: soft. Absent: tenderness Extremities exam: Present: normal inspection, full ROM, normal capillary refill Back exam: Present: normal inspection, full ROM Neurological exam: Present: alert, oriented X3 Psychiatric exam: Present: normal affect, normal mood Skin exam: Present: warm, intact, normal color <Chavo Ibrahim - Last Filed: 07/04/19 06:41> Course Vital Signs 07/04/19 07/04/19 04:02 06:44 Temperature 98.3 F Pulse Rate 86 84 Respiratory 18 18 Rate Blood Pressure 112/78 112/53 O2 Sat by Pulse 97 98 Oximetry Chest Pain [facility] - Differential Diagnosis AMI, ACS <Chavo Ibrahim - Last Filed: 07/04/19 06:41> <Lara Narvaez - Last Filed: 07/11/19 02:51> - [facility] Patient is a 43-year-old female with history of IL is presenting to the emergency department with a chief complaint of chest pain. Patient presented to [facility] for chest pain. Initial evaluation indicates negative troponins. Patient was given a heparin drip and transferred to [facility]. Chest x-ray is indicative of early pneumonia. Troponins are negative. Rest of labs are unremarkable. Patient does have leukocytosis. Patient will be admitted for cardiac rule out. (Rosanne Ibrahim I was available for consultation in the emergency department. The history and physical exam were done by the midlevel provider. I was consulted for this patients care. I reviewed the case with the midlevel provider and based on their presentation of the patient, I agree with the assessment, medical decision making and plan of care as documented. The patient was admitted to Dr. Flores. Cardiology will be consulted. Chart was dictated using [employer] dictation software. Attempts were made to shayne ect any dictation errors however some typographical errors may persist. (Lara Narvaez) Disposition Is patient prescribed a controlled substance at d/c from ED?: No Time of Disposition: 06:10 <Chavo Ibrahim - Last Filed: 07/04/19 06:41> <Lara Narvaez - Last Filed: 07/11/19 02:51> Clinical Impression: Chest pain Disposition: ADMITTED IP TO THIS HOSP Condition: Stable
[2019-07-04 04:48] LABS: Basophils # (A) 0.2 k/uL (0-0.2); Basophils % (A) 1 %; Eosinophils # (A) 0.7 k/uL (0-0.7); Eosinophils % (A) 6 %; HCT 39.5 % (34.0-46.0); HGB 13.6 gm/dL (11.4-16.0); Lymphocytes # (A) 2.4 k/uL (1.0-4.8); Lymphocytes % (A) 20 %; MCH 29.7 pg (25.0-35.0); MCHC 34.6 g/dL (31.0-37.0); MCV 85.8 fL (80.0-100.0); Mean Platelet Volume 7.3; Monocytes # (A) 0.7 k/uL (0-1.0); Monocytes % (A) 5 %; Neutrophils # (A) 8.2 k/uL (1.3-7.7); Neutrophils % (A) 67 %; Platelet Count 218 k/uL (150-450); RDW 15.1 % (11.5-15.5); WBC 12.3 k/uL (3.8-10.6)
[2019-07-04 04:56] LABS: INR 0.9 (<1.2); Partial Thromboplastin Time 36.1 sec (22.0-30.0); Prothrombin Time 9.7 sec (9.0-12.0)
[2019-07-04 05:01] LABS: ALT 19 U/L (9-52); AST 20 U/L (14-36); African American GFR (CKD) >90 (>60 ml/min/1.73 sqM); Albumin 4.3 g/dL (3.5-5.0); Alkaline Phosphatase 82 U/L (38-126); Anion Gap 11 mmol/L; Blood Urea Nitrogen 16 mg/dL (7-17); Calcium 9.6 mg/dL (8.4-10.2); Carbon Dioxide 23 mmol/L (22-30); Chloride 105 mmol/L (98-107); Glucose 207 mg/dL (74-99); Magnesium 2.1 mg/dL (1.6-2.3); Potassium 4.2 mmol/L (3.5-5.1); Sodium 139 mmol/L (137-145); Total Bilirubin 0.4 mg/dL (0.2-1.3); Total Protein 7.9 g/dL (6.3-8.2)
--- NOTE | 2019-07-04 05:01 | XR ---
EXAM: XR Chest, 2 Views CLINICAL HISTORY: Chest pain. TECHNIQUE: Frontal and lateral views of the chest. COMPARISON: 11/04/2016. 08/28/2016. FINDINGS: Lungs: On the lateral view the chest, posteriorly there is some increased density overlying the lower thoracic vertebral body. The possibility of early or residual pneumonia at the lung base should be considered. Pleural space: No pneumothorax No pleural effusions Heart: Heart is top normal in size Mediastinum: Unremarkable. Bones/joints: Ribs are grossly unremarkable Mild degenerative disc disease of the thoracic spine. Other findings: Mild hypoaeration. IMPRESSION: Possible early or residual pneumonia at the lung base seen only on the lateral view. Mild hypoaeration. Clinical correlation is necessary.
[2019-07-04] MEDS ORDERED: NALOXONE 0.4 MG/ML 1 ML VIAL IV PRN (06:41)
[2019-07-04] MEDS: ONDANSETRON 4 MG/2 ML VIAL IVP PRN (09:28)
[2019-07-04] MEDS: KETOROLAC 30 MG/ML 1 ML VIAL IVP PRN (09:28)
--- NOTE | 2019-07-04 09:31 | P.CRDCN ---
History of Present Illness Consult date: 07/04/19 History of present illness: This is a 43-year-old female with history of hypertension and hypertriglyceridemia who is transferred from [facility] because of chest pain. Apparently, as patient was watching a movie around 1 AM, she started having numbness and tingling in the jaw and also in the left arm followed by a tight feeling in the chest. She also had some discomfort in the back. Patient went to the emergency room. She was treated with 3 sublingual nitroglycerin with minimal relief. Subsequently she was given morphine 2 with relief of pain mostly. Patient was subsequently transferred to [facility] for further evaluation. Patient still having some discomfort but overall feeling better. Her EKG did not reveal any acute changes. Cardiac enzymes are negative. She was here in 2017 with similar pains. She had a stress test at the time that was negative for ischemia. No history of previous myocardial infarction or stroke. Her first troponin is within normal limits. At this point we'll continue with current medical therapy and follow her cardiac enzymes studies. If enzymes are negative, will consider doing a repeat stress test. However, if the enzymes are positive, a cardiac catheterization may be necessary for definitive diagnosis. We'll also get an echocardiogram. Review of Systems As per the chart Past Medical History Past Medical History: Chest Pain / Angina, Diabetes Mellitus, Hyperlipidemia, Memory Impairment, Myocardial Infarction ([place]), Osteoarthritis ([place]), Seizure Disorder, Sleep Apnea/CPAP/BIPAP Additional Past Medical History / Comment(s): Previous 2 seizures in 2017, familial hypertriglyceridemia, pancreatitis, IDDM type II, migraines, CPAP but not using, arthritis multiple joints, chronic low back, [place] 2007. Heart valve spasm Last Myocardial Infarction Date:: 2007 History of Any Multi-Drug Resistant Organisms: None Reported Past Surgical History: Back Surgery, Heart Catheterization, Orthopedic Surgery Additional Past Surgical History / Comment(s): Cardiac cath-normal, low back surgery, L ankle surgery for entrapped vessels, L knee arthroscopy. Past Anesthesia/Blood Transfusion Reactions: No Reported Reaction Past Psychological History: Anxiety, Depression Additional Psychological History / Comment(s): Pt resides with her spouse and their 2 children, ages 14yrs and 17yrs. 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 Pt is independent. Smoking Status: Current every day smoker Past Alcohol Use History: Rare Additional Past Alcohol Use History / Comment(s): Pt started smoking in 1989 and is a ppd smoker. Past Drug Use History: None Reported - Past Family History Father Family Medical History: Congestive Heart Failure (CHF) Additional Family Medical History / Comment(s): Father at the age of 59 yrs from CHF. Mother Family Medical History: Cancer, CVA/TIA, Myocardial Infarction ([place]) Additional Family Medical History / Comment(s): Mother has had CVAs and MIs with one [place] while in her late 30's. She had renal carcinoma Sister(s) Family Medical History: Cancer Additional Family Medical History / Comment(s): sister with cervical cancer, at the age 37 Medications and Allergies Home Medications Medication Instructions Recorded Confirmed Type Gemfibrozil [Lopid] 600 mg PO BID 08/28/16 07/04/19 History Insulin Glargine [Lantus] 40 units SQ HS 08/28/16 07/04/19 History metFORMIN HCL 1,000 mg PO BID 08/28/16 07/04/19 History Acetaminophen-Codeine 300-30mg 1 tab PO Q12H PRN 11/04/16 07/04/19 History [Tylenol w/codeine #3] Ondansetron [Zofran] 4 mg PO Q8H PRN 11/04/16 07/04/19 History Lacosamide [Vimpat] 200 mg PO BID 09/22/18 07/04/19 History levETIRAcetam [Keppra] 1,000 mg PO BID 09/22/18 07/04/19 History ALPRAZolam [Xanax] 0.25 mg PO HS PRN 07/04/19 07/04/19 History Ertugliflozin Pidolate [Steglatro] 5 mg PO DAILY 07/04/19 07/04/19 History Allergies Allergy/AdvReac Type Severity Reaction Status Date / Time Iodinated Contrast- Oral and Allergy Unknown Verified 07/04/19 08:14 IV Dye [Iodinated Contrast Media - IV Dye] Physical Exam Vitals: Vital Signs Temp Pulse Pulse Resp BP BP Pulse Ox 07/04/19 08:10 97.8 F 71 16 111/72 96 07/04/19 07:55 98.1 F 79 16 103/74 96 07/04/19 06:44 84 18 112/53 98 07/04/19 04:02 98.3 F 86 18 112/78 97 Intake and Output 07/03/19 07/04/19 07/04/19 22:59 06:59 14:59 Other: Voiding Method Toilet Weight 94.801 kg GENERAL EXAM: Patient is alert and oriented and doesn't appear to be in any acute distress HEENT: Normocephalic. Normal reaction of pupils, equal size, normal range of extraocular motion. No erythema or exudates in the throat. NECK: No masses, no nuchal rigidity. CHEST: No chest wall deformity. LUNGS: Equal air entry with no crackles or wheeze. HEART: S1 and S2 normal with no audible mumurs or gallops. Regular rhythm, femorals equal on both sides.. ABDOMEN: No hepatosplenomegaly, normal bowel sounds, no guarding or rigidity. SKIN: No rashes CENTRAL NERVOUS SYSTEM: No focal deficits. EXTREMITIES: No cyanosis, clubbing or edema. Results 07/04/19 04:38 07/04/19 04:38 Cardiac Enzymes 07/04/19 07/04/19 Range/Units 04:38 04:38 AST 20 (14-36) U/L Troponin I <0.012 (0.000-0.034) ng/mL Coagulation 07/04/19 Range/Units 04:38 PT 9.7 (9.0-12.0) sec APTT 36.1 H (22.0-30.0) sec CBC 07/04/19 Range/Units 04:38 WBC 12.3 H (3.8-10.6) k/uL RBC 4.60 (3.80-5.40) m/uL Hgb 13.6 (11.4-16.0) gm/dL Hct 39.5 (34.0-46.0) % Plt Count 218 (150-450) k/uL Comprehensive Metabolic Panel 07/04/19 Range/Units 04:38 Sodium 139 (137-145) mmol/L Potassium 4.2 (3.5-5.1) mmol/L Chloride 105 (98-107) mmol/L Carbon Dioxide 23 (22-30) mmol/L BUN 16 (7-17) mg/dL Creatinine 0.51 L (0.52-1.04) mg/dL Glucose 207 H (74-99) mg/dL Calcium 9.6 (8.4-10.2) mg/dL AST 20 (14-36) U/L ALT 19 (9-52) U/L Alkaline Phosphatase 82 (38-126) U/L Total Protein 7.9 (6.3-8.2) g/dL Albumin 4.3 (3.5-5.0) g/dL Current Medications Generic Name Dose Route Start Last Admin Trade Name Freq PRN Reason Stop Dose Admin Ketorolac Tromethamine 30 mg 07/04/19 09:21 Toradol IVP 07/08/19 09:11 Q6HR PRN Pain Naloxone HCl 0.2 mg 07/04/19 06:41 Narcan IV Q2M PRN Opioid Reversal Ondansetron HCl 4 mg 07/04/19 09:11 Zofran IVP Q6HR PRN Nausea And Vomiting Intake and Output 07/03/19 07/04/19 07/04/19 22:59 06:59 14:59 Other: Voiding Method Toilet Weight 94.801 kg 07/04/19 04:38 07/04/19 04:38 EKG Interpretations (text) Sinus rhythm Assessment and Plan (1) Diabetes mellitus Current Visit: Yes Status: Acute Code(s): E11.9 - TYPE 2 DIABETES MELLITUS WITHOUT COMPLICATIONS SNOMED Code(s): 31511551 (2) Chest pain Current Visit: Yes Status: Acute Code(s): R07.9 - CHEST PAIN, UNSPECIFIED SNOMED Code(s): 51829726 (3) Hypertriglyceridemia Current Visit: Yes Status: Acute Code(s): E78.1 - PURE HYPERGLYCERIDEMIA SNOMED Code(s): 117358620 Plan: We will continue to follow her cardiac enzymes. Echocardiogram. If the enzymes are negative, patient may be evaluated by stress test
[2019-07-04 11:30] LABS: Glucose,Whole Blood 211 mg/dL (75-99)
[2019-07-04] MEDS ORDERED: ALPRAZolam 0.25 MG TAB PO PRN (11:38)
[2019-07-04] MEDS ORDERED: KETOROLAC 30 MG/ML 1 ML VIAL IVP SCH (12:00)
[2019-07-04] MEDS: LACOSAMIDE 50 MG TABLET PO SCH ×2 (12:06→20:09)
[2019-07-04] MEDS: levETIRAcetam 500 MG TAB PO SCH ×2 (12:07→20:09)
[2019-07-04] MEDS: Acetaminophen-Codeine 300-30mg TAB PO PRN (12:34)
[2019-07-04] MEDS: AZITHROMYCIN 500 MG in SODIUM CHLORIDE 0.9% 250 ML IVPB SCH (14:31)
[2019-07-04] MEDS: IPRATROPIUM-ALBUTEROL 3 ML NEB INHALATION SCH ×3 (15:42→21:12)
--- NOTE | 2019-07-04 16:01 | ECHOF ---
Referral Reason:Chest pain and cardiomyopathy MEASUREMENTS -------- HEIGHT: 172.7 cm WEIGHT: 94.8 kg BP: 111/72 RVIDd: 3.3 cm (< 3.3) IVSd: 1.3 cm (0.6 - 1.1) LVIDd: 4.0 cm (3.9 - 5.3) LVPWd: 1.3 cm (0.6 - 1.1) IVSs: 1.7 cm LVIDs: 3.7 cm LVPWs: 1.6 cm LA Diam: 3.9 cm (2.7 - 3.8) LAESV Index (A-L): 30.81 ml/m Ao Diam: 3.8 cm (2.0 - 3.7) AV Cusp: 2.3 cm (1.5 - 2.6) MV EXCURSION: 19.089 mm (> 18.000) MV EF SLOPE: 71 mm/s (70 - 150) EPSS: 0.9 cm MV E Yehuda: 0.86 m/s MV DecT: 232 ms MV A Yehuda: 0.74 m/s MV E/A Ratio: 1.17 RAP: 5.00 mmHg RVSP: 39.53 mmHg TAPSE: 24.71 mm FINDINGS -------- Sinus rhythm. This was a technically good study. The left ventricular size is normal. There is mild concentric left ventricular hypertrophy. Overa ll left ventricular systolic function is normal with, an EF between 60 - 65 %. The diastolic fillin g pattern indicates impaired relaxation 16.59. The right ventricle is mildly enlarged. Normal LA size by volume 22+/-6 ml/m2. The right atrium is normal in size. Interatrial and interventricular septum intact. The aortic valve is trileaflet and appears structurally normal. The mitral valve is normal. Mild tricuspid regurgitation present. There is mild pulmonary hypertension. The right ventricular systolic pressure, as measured by Doppler, is 39.53mmHg. Trace/mild (physiologic) pulmonic regurgitation. The aortic root is dilated measuring 3.8cm. IVC Not well visulized. There is no pericardial effusion. CONCLUSIONS -------- 1. Sinus rhythm. 2. This was a technically good study. 3. The left ventricular size is normal. 4. There is mild concentric left ventricular hypertrophy. 5. Overall left ventricular systolic function is normal with, an EF between 60 - 65 %. 6. The diastolic filling pattern indicates impaired relaxation 16.59.. 7. The right ventricle is mildly enlarged. 8. Normal LA size by volume 22+/-6 ml/m2. 9. The right atrium is normal in size. 10. Interatrial and interventricular septum intact. 11. The aortic valve is trileaflet and appears structurally normal. 12. The mitral valve is normal. 13. Mild tricuspid regurgitation present. 14. There is mild pulmonary hypertension. 15. The right ventricular systolic pressure, as measured by Doppler, is 39.53mmHg. 16. Trace/mild (physiologic) pulmonic regurgitation. 17. The aortic root is dilated measuring 3.8cm. 18. IVC Not well visulized. 19. There is no pericardial effusion. MANAGEMENT PSYCHOLOGIST: Cheyenne Clayton RDCS
[2019-07-04 16:30] LABS: Glucose,Whole Blood 206 mg/dL (75-99)
[2019-07-04] MEDS: HEPARIN SODIUM,PORCINE 5,000 UNIT/ML 1 ML VIAL SQ SCH (16:44)
--- NOTE | 2019-07-04 19:17 | P.HPIM ---
History of Present Illness H&P Date: 07/04/19 Chief Complaint: Chest pain Patient is a 42-year-old female with known history of nicotine addiction 1 pack per day, diabetes type 2, hyperlipidemia, memory impairment and history of SD status post cardiac catheterization and no PCI, osteoarthritis and seasonal disorder as well as obstructive sleep apnea came to ER with the complaints of chest pain. Patient was initially presented to [facility] and was transferred to [facility] for cardiology evaluation. Patient says that she developed chest pain, mainly upper chest retrosternal and radiates to the right side of the neck And shoulder as well as down the upper arm. Chest pain started around 1 AM and woke her up from sleep. Patient woke her and was brought to the hospital for evaluation. Denied any complaints of nausea, vomiting. No diaphoresis. No headache or dizziness or lightheadedness. No orthopnea no PND. EKG showed normal sinus rhythm. Chest x-ray showed possible air leak and residual pneumonia at the lung base seen only on the lateral view. Mild hypoaeration. Patient denied any fever or chills. Patient is having chronic cough with whitish to iván colored sputum production. Troponin 3 negative. WBC 12.3 Denied any sick contacts at home. No recent illnesses. Review of Systems Constitutional: Patient denies any fever or chills . No generalized weakness or weight loss. Abdomen: Patient denied nausea vomiting and diarrhea and abdominal pain. Cardiovascular: Patient does have chest pain and short of breath no palp itations. Respiratory: Patient does have cough. Sputum production. No shortness of breath Neurologic: Patient denied any numbness or tingling headache. Musculoskeletal: Patient denies any complaints of joint swelling or deformity. Skin: Negative Psychiatric: Negative Endocrine: No heat or cold intolerance. No recent weight gain. Genitourinary: No dysuria or hematuria. All other 14 point ROS negative except the above Past Medical History Past Medical History: Chest Pain / Angina, Diabetes Mellitus, Hyperlipidemia, Memory Impairment, Myocardial Infarction (SD), Osteoarthritis (OA), Seizure Disorder, Sleep Apnea/CPAP/BIPAP Additional Past Medical History / Comment(s): Previous 2 seizures in 2017, familial hypertriglyceridemia, pancreatitis, IDDM type II, migraines, CPAP but not using, arthritis multiple joints, chronic low back, SD 2007. Heart valve spasm Last Myocardial Infarction Date:: 2007 History of Any Multi-Drug Resistant Organisms: None Reported Past Surgical History: Back Surgery, Heart Catheterization, Orthopedic Surgery Additional Past Surgical History / Comment(s): Cardiac cath-normal, low back surgery, L ankle surgery for entrapped vessels, L knee arthroscopy. Past Anesthesia/Blood Transfusion Reactions: No Reported Reaction Past Psychological History: Anxiety, Depression Additional Psychological History / Comment(s): Pt resides with her spouse and their 2 children, ages 14yrs and 17yrs. 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 Pt is independent. Smoking Status: Current every day smoker Past Alcohol Use History: Rare Additional Past Alcohol Use History / Comment(s): Pt started smoking in 1989 and is a ppd smoker. Past Drug Use History: None Reported - Past Family History Father Family Medical History: Congestive Heart Failure (CHF) Additional Family Medical History / Comment(s): Father at the age of 59 yrs from CHF. Mother Family Medical History: Cancer, CVA/TIA, Myocardial Infarction (SD) Additional Family Medical History / Comment(s): Mother has had CVAs and MIs with one SD while in her late 30's. She had renal carcinoma Sister(s) Family Medical History: Cancer Additional Family Medical History / Comment(s): sister with cervical cancer, at the age 37 Medications and Allergies Home Medications Medication Instructions Recorded Confirmed Type Gemfibrozil [Lopid] 600 mg PO BID 08/28/16 07/04/19 History Insulin Glargine [Lantus] 40 units SQ HS 08/28/16 07/04/19 History metFORMIN HCL 1,000 mg PO BID 08/28/16 07/04/19 History Acetaminophen-Codeine 300-30mg 1 tab PO Q12H PRN 11/04/16 07/04/19 History [Tylenol w/codeine #3] Ondansetron [Zofran] 4 mg PO Q8H PRN 11/04/16 07/04/19 History Lacosamide [Vimpat] 200 mg PO BID 09/22/18 07/04/19 History levETIRAcetam [Keppra] 1,000 mg PO BID 09/22/18 07/04/19 History ALPRAZolam [Xanax] 0.25 mg PO HS PRN 07/04/19 07/04/19 History Ertugliflozin Pidolate [Steglatro] 5 mg PO DAILY 07/04/19 07/04/19 History Allergies Allergy/AdvReac Type Severity Reaction Status Date / Time Iodinated Contrast- Oral and Allergy Unknown Verified 07/04/19 08:14 IV Dye [Iodinated Contrast Media - IV Dye] Physical Exam Vitals: Vital Signs Temp Pulse Pulse Resp BP BP Pulse Ox 07/04/19 08:10 97.8 F 71 16 111/72 96 07/04/19 07:55 98.1 F 79 16 103/74 96 07/04/19 06:44 84 18 112/53 98 07/04/19 04:02 98.3 F 86 18 112/78 97 Intake and Output 07/03/19 07/04/19 07/04/19 22:59 06:59 14:59 Other: Voiding Method Toilet Weight 94.801 kg PHYSICAL EXAMINATION: Patient is lying in the bed comfortably, no acute distress, awake alert and oriented.. HEENT: Normocephalic. Neck is supple. Pupils reactive. Nostrils clear. Oral cavity is moist. Ears reveal no drainage. Neck reveals no JVD, carotid bruits, or thyromegaly. CHEST EXAMINATION: Trachea is central. Symmetrical expansion. Prolonged expiration. Lung allison clear to auscultation and percussion. CARDIAC: Normal S1, S2 with no gallops. No murmurs ABDOMEN: Soft. Bowel sounds normal. No organomegaly. No abdominal bruits. Extremities: reveal no edema. No clubbing or cyanosis Neurologically awake, alert, oriented x3 with well-coordinated movements. No focal deficits noted Skin: No rash or skin lesions. Psychiatric: Coperative. Nonsuicidal Musculoskeletal: No joint swelling or deformity. Normal range of motion. Results CBC & Chem 7: 07/04/19 04:38 07/04/19 04:38 Labs: Abnormal Lab Results - Last 24 Hours (Table) 07/04/19 07/04/19 07/04/19 Range/Units 04:38 04:38 04:38 WBC 12.3 H (3.8-10.6) k/uL Neutrophils # 8.2 H (1.3-7.7) k/uL APTT 36.1 H (22.0-30.0) sec Creatinine 0.51 L (0.52-1.04) mg/dL Glucose 207 H (74-99) mg/dL POC Glucose (mg/dL) (75-99) mg/dL 07/04/19 Range/Units 11:28 WBC (3.8-10.6) k/uL Neutrophils # (1.3-7.7) k/uL APTT (22.0-30.0) sec Creatinine (0.52-1.04) mg/dL Glucose (74-99) mg/dL POC Glucose (mg/dL) 211 H (75-99) mg/dL Thrombosis Risk Factor Assmnt - DVT/VTE Prophylaxis DVT/VTE Prophylaxis: Pharmacologic Prophylaxis ordered - Choose All That Apply Any of the Below Risk Factors Present?: Yes Each Factor Represents 1 point: Age 41-60 years, Obesity (BMI >25), Serious lung disease incl. pneumonia (< 1month) Other Risk Factors: No Other congenital or acquired thrombophilia - If yes, enter type in comment: No Thrombosis Risk Factor Assessment Total Risk Factor Score: 3 Thrombosis Risk Factor Assessment Level: Moderate Risk Assessment and Plan Assessment: Atypical chest pain. Rule out ACS. Serial troponin 3 negative. Possible bibasilar early pneumonia. Nicotine addiction Hyperglycemia with uncontrolled diabetes type 2 Memory impairment osteoarthritis History of seizure disorder Obstructive sleep apnea Familial hypertriglyceridemia History of migraine headaches Nicotine addiction with currently with a smoker Anxiety/depression DVT prophylaxis Plan: Patient be continued on telemetry monitoring. Serial EKG, troponin 3 negative. 2-D echocardiogram was ordered. Patient will be started on antibiotics in the form of ceftriaxone and a zithromycin. Continue with breathing treatments and follow up closely. Cardiology is on board. Continue with home medications and insulin sliding scale. Further recommendations based on the clinical course. Smoking cessation has been counseled extensively. Time with Patient: Greater than 30
[2019-07-04] MEDS ORDERED: IPRATROPIUM-ALBUTEROL 3 ML NEB INHALATION PRN (19:53)
[2019-07-04 20:03] LABS: Glucose,Whole Blood 218 mg/dL (75-99)
[2019-07-04] MEDS: INSULIN DETEMIR (LEVEMIR) 100 UNIT/ML SYR SQ SCH (20:09)
[2019-07-05] MEDS: HEPARIN SODIUM,PORCINE 5,000 UNIT/ML 1 ML VIAL SQ SCH ×3 (01:11→16:59)
[2019-07-05 06:50] LABS: Glucose,Whole Blood 154 mg/dL (75-99)
--- NOTE | 2019-07-05 08:21 | P.PN ---
Subjective Progress Note Date: 07/05/19 Principal diagnosis: Chest pain This 43-year-old female is admitted to the hospital with chest pain and clinically the pains were atypical. Cardiac enzymes are negative. Echo showed normal LV function. At this point, her chest pains appear to be typical. Patient could be discharged home from Cardec standpoint. To be scheduled for a dobutamine echocardiogram as an outpatient. Follow-up as an outpatient Objective - Vital Signs Vital signs: Vital Signs Temp 97.7 F 07/05/19 08:00 Pulse 61 07/05/19 08:00 Resp 16 07/05/19 08:00 BP 115/80 07/05/19 08:00 Pulse Ox 97 07/05/19 08:00 Intake & Output 07/04/19 07/05/19 07/05/19 18:59 06:59 18:59 Intake Total 120 Balance 120 Intake: Oral 120 Other: Voiding Method Toilet Toilet # Voids 1 - Exam GENERAL EXAM: Patient is alert and oriented and doesn't appear to be in any acute distress HEENT: Normocephalic. Normal reaction of pupils, equal size, normal range of extraocular motion. No erythema or exudates in the throat. NECK: No masses, no nuchal rigidity. CHEST: No chest wall deformity. LUNGS: Equal air entry with no crackles or wheeze. HEART: S1 and S2 normal with no audible mumurs or gallops. Regular rhythm, femorals equal on both sides.. ABDOMEN: No hepatosplenomegaly, normal bowel sounds, no guarding or rigidity. SKIN: No rashes CENTRAL NERVOUS SYSTEM: No focal deficits. EXTREMITIES: No cyanosis, clubbing or edema. - Labs CBC & Chem 7: 07/04/19 04:38 07/04/19 04:38 Labs: Abnormal Lab Results - Last 24 Hours (Table) 07/04/19 07/04/19 07/04/19 Range/Units 11:28 16:28 20:02 POC Glucose (mg/dL) 211 H 206 H 218 H (75-99) mg/dL 07/05/19 Range/Units 06:49 POC Glucose (mg/dL) 154 H (75-99) mg/dL Assessment and Plan (1) Diabetes mellitus Current Visit: Yes Status: Acute Code(s): E11.9 - TYPE 2 DIABETES MELLITUS WITHOUT COMPLICATIONS SNOMED Code(s): 42514267 (2) Chest pain Current Visit: Yes Status: Acute Code(s): R07.9 - CHEST PAIN, UNSPECIFIED SNOMED Code(s): 46684749 (3) Hypertriglyceridemia Current Visit: Yes Status: Acute Code(s): E78.1 - PURE HYPERGLYCERIDEMIA S NOMED Code(s): 056181855 Plan: Atypical chest pains with negative enzymes and EKGs. Probably, patient could be discharged home. Outpatient dobutamine echo to be scheduled . Follow-up as an outpatient
[2019-07-05] MEDS: IPRATROPIUM-ALBUTEROL 3 ML NEB INHALATION SCH ×4 (08:28→18:51)
[2019-07-05] MEDS: levETIRAcetam 500 MG TAB PO SCH ×2 (08:32→19:33)
[2019-07-05] MEDS: LACOSAMIDE 50 MG TABLET PO SCH ×2 (08:32→19:33)
[2019-07-05] MEDS: ONDANSETRON 4 MG/2 ML VIAL IVP PRN (10:24)
[2019-07-05 11:39] LABS: Glucose,Whole Blood 173 mg/dL (75-99)
[2019-07-05] MEDS: AZITHROMYCIN 500 MG in SODIUM CHLORIDE 0.9% 250 ML IVPB SCH (13:33)
[2019-07-05] MEDS ORDERED: LORazepam 2 MG/ML INJ IV PRN (16:25)
[2019-07-05] MEDS ORDERED: LORazepam 2 MG/ML INJ ONE (16:27)
[2019-07-05] MEDS: Acetaminophen-Codeine 300-30mg TAB PO PRN (16:37)
[2019-07-05 16:45] LABS: Glucose,Whole Blood 169 mg/dL (75-99)
[2019-07-05] MEDS: KETOROLAC 30 MG/ML 1 ML VIAL IVP PRN (19:34)
[2019-07-05 19:43] VITALS: RESP 18
[2019-07-05 20:07] LABS: Glucose,Whole Blood 269 mg/dL (75-99)
[2019-07-05] MEDS: INSULIN DETEMIR (LEVEMIR) 100 UNIT/ML SYR SQ SCH (21:15)
[2019-07-06] MEDS: HEPARIN SODIUM,PORCINE 5,000 UNIT/ML 1 ML VIAL SQ SCH ×3 (01:11→16:25)
--- NOTE | 2019-07-06 01:49 | P.PN ---
Subjective Progress Note Date: 07/05/19 Principal diagnosis: Chest pain. Ruled out ACS Possible early pneumonia Acute seizure episode Patient is a 42-year-old female with known history of nicotine addiction 1 pack per day, diabetes type 2, hyperlipidemia, memory impairment and history of [place] status post cardiac catheterization and no PCI, osteoarthritis and seasonal disorder as well as obstructive sleep apnea came to ER with the complaints of chest pain. Patient was initially presented to [facility] and was transferred to [facility] for cardiology evaluation. Patient says that she developed chest pain, mainly upper chest retrosternal and radiates to the right side of the neck And shoulder as well as down the upper arm. Chest pain started around 1 AM and woke her up from sleep. Patient woke her and was brought to the hospital for evaluation. Denied any complaints of nausea, vomiting. No diaphoresis. No headache or dizziness or lightheadedness. No orthopnea no PND. EKG showed normal sinus rhythm. Chest x-ray showed possible air leak and residual pneumonia at the lung base seen only on the lateral view. Mild hypoaeration. Patient denied any fever or chills. Patient is having chronic cough with whitish to iván colored sputum production. Troponin 3 negative. WBC 12.3 Denied any sick contacts at home. No recent illnesses. 07/05/2019 Patient denied any complaints of chest pain today. 2-D echocardiogram showed normal ejection fraction and no significant wall motion abnormalities noted. Otherwise patient is being continued on antibiotics for possible early pneum onia. Cardiology recommends to the stress test as an outpatient. Patient is being discharged home today and suddenly started having tonic-clonic seizures. Patient was given IV Ativan and continue with her home antiepileptic medications. Monitor for 24 hours. Current medications reviewed. Objective - Vital Signs Vital signs: Vital Signs Temp 97.9 F 07/05/19 16:00 Pulse 71 07/05/19 16:00 Resp 16 07/05/19 16:00 BP 114/76 07/05/19 16:00 Pulse Ox 95 07/05/19 16:00 Intake & Output 07/04/19 07/05/19 07/05/19 18:59 06:59 18:59 Intake Total 120 Balance 120 Intake: Oral 120 Other: Voiding Method Toilet Toilet Toilet # Voids 1 1 - Exam PHYSICAL EXAMINATION: Patient is lying in the bed comfortably, no acute distress, awake alert and oriented.. HEENT: Normocephalic. Neck is supple. Pupils reactive. Nostrils clear. Oral cavity is moist. Ears reveal no drainage. Neck reveals no JVD, carotid bruits, or thyromegaly. CHEST EXAMINATION: Trachea is central. Symmetrical expansion. Lung allison clear to auscultation and percussion. CARDIAC: Normal S1, S2 with no gallops. No murmurs ABDOMEN: Soft. Bowel sounds normal. No organomegaly. No abdominal bruits. Extremities: reveal no edema. No clubbing or cyanosis Neurologically awake, alert, oriented x3 with well-coordinated movements. No focal deficits noted Skin: No rash or skin lesions. Psychiatric: Coperative. Nonsuicidal Musculoskeletal: No joint swelling or deformity. Normal range of motion. - Labs CBC & Chem 7: 07/04/19 04:38 07/04/19 04:38 Labs: Abnormal Lab Results - Last 24 Hours (Table) 07/04/19 07/05/19 07/05/19 Range/Units 20:02 06:49 11:37 POC Glucose (mg/dL) 218 H 154 H 173 H (75-99) mg/dL 07/05/19 Range/Units 16:43 POC Glucose (mg/dL) 169 H (75-99) mg/dL Assessment and Plan Assessment: Atypical chest pain. Ruled out ACS. Serial troponin 3 negative. 2-D echo cardiac exam showed normal ejection fraction. Possible bibasilar early pneumonia. Acute seizures episode. Nicotine addiction Hyperglycemia with uncontrolled diabetes type 2 Memory impairment osteoarthritis History of seizure disorder Obstructive sleep apnea Familial hypertriglyceridemia History of migraine headaches Nicotine addiction with currently with a smoker Anxiety/depression DVT prophylaxis Plan: Patient be continued on telemetry monitoring. Serial EKG, troponin 3 negative. 2-D echocardiogram reviewed.. Continue on antibiotics in the form of ceftriaxone and azithromycin. Continue with breathing treatments and follow up closely. Cardiology is recommends outpatient stress test.. Continue with home medications and insulin sliding scale. Further recommendations based on the clinical course. Smoking cessation has been counseled extensively. Time with Patient: Greater than 30
[2019-07-06] MEDS: ONDANSETRON 4 MG/2 ML VIAL IVP PRN ×2 (02:23→10:02)
[2019-07-06 06:20] LABS: Basophils # (A) 0.1 k/uL (0-0.2); Basophils % (A) 1 %; Eosinophils # (A) 0.4 k/uL (0-0.7); Eosinophils % (A) 6 %; HCT 34.3 % (34.0-46.0); HGB 12.9 gm/dL (11.4-16.0); Lymphocytes # (A) 1.8 k/uL (1.0-4.8); Lymphocytes % (A) 28 %; MCV 87.1 fL (80.0-100.0); Mean Platelet Volume 7.2; Monocytes # (A) 0.4 k/uL (0-1.0); Monocytes % (A) 6 %; Neutrophils # (A) 3.7 k/uL (1.3-7.7); Neutrophils % (A) 58 %; Platelet Count 156 k/uL (150-450); RBC 3.94 m/uL (3.80-5.40); RDW 14.2 % (11.5-15.5); WBC 6.5 k/uL (3.8-10.6)
[2019-07-06 06:26] LABS: MCH 29.3 pg (25.0-35.0); MCHC 33.8 g/dL (31.0-37.0)
[2019-07-06 06:42] LABS: Glucose,Whole Blood 162 mg/dL (75-99)
[2019-07-06 07:44] LABS: Chloride 110 mmol/L (98-107); Potassium 4.5 mmol/L (3.5-5.1); Sodium 138 mmol/L (137-145)
[2019-07-06] MEDS: IPRATROPIUM-ALBUTEROL 3 ML NEB INHALATION SCH ×4 (07:45→19:59)
[2019-07-06 08:29] LABS: African American GFR (CKD) >90 (>60 ml/min/1.73 sqM); Anion Gap 5 mmol/L; Blood Urea Nitrogen 14 mg/dL (7-17); Calcium 8.6 mg/dL (8.4-10.2); Carbon Dioxide 23 mmol/L (22-30); Glucose 163 mg/dL (74-99)
[2019-07-06] MEDS: LACOSAMIDE 50 MG TABLET PO SCH ×2 (09:23→21:11)
[2019-07-06] MEDS: levETIRAcetam 500 MG TAB PO SCH ×2 (09:24→21:12)
[2019-07-06] MEDS: Acetaminophen-Codeine 300-30mg TAB PO PRN (09:52)
[2019-07-06] MEDS ORDERED: MAG HYDROX/AL HYDROX/SIMETH 30 ML CUP PO PRN (11:08)
[2019-07-06 11:20] LABS: Amylase 102 U/L (30-110)
[2019-07-06 11:42] LABS: Glucose,Whole Blood 265 mg/dL (75-99)
[2019-07-06] MEDS: AZITHROMYCIN 500 MG in SODIUM CHLORIDE 0.9% 250 ML IVPB SCH (14:41)
[2019-07-06] MEDS: KETOROLAC 30 MG/ML 1 ML VIAL IVP PRN ×2 (15:08→21:13)
[2019-07-06 16:22] LABS: Glucose,Whole Blood 173 mg/dL (75-99)
[2019-07-06 19:53] LABS: Glucose,Whole Blood 216 mg/dL (75-99)
[2019-07-06] MEDS: INSULIN DETEMIR (LEVEMIR) 100 UNIT/ML SYR SQ SCH (22:17)
[2019-07-06] MEDS ORDERED: MORPHINE SULFATE 2 MG/ML SYRINGE IM STA (22:29)
--- NOTE | 2019-07-06 23:05 | CT ---
EXAMINATION TYPE: CT abdomen pelvis wo con DATE OF EXAM: 07/06/2019 COMPARISON: None HISTORY: abdominal pain CT DLP: 1156.4 mGycm Automated exposure control for dose reduction was used. TECHNIQUE: Helical acquisition of images was performed from the lung bases through the pelvis. FINDINGS: There is subsegmental atelectasis at the lung bases. There is no pleural effusion. Heart size is norm al. There is no pericardial effusion. There are small calcified gallstones. Liver shows no focal defect. Bile ducts are not dilated. Spleen is enlarged and measures 15 cm. There are some varicose veins around the spleen. There is 3 cm cyst in the tail of the pancreas. Pancreatic duct is not dilated. There is no adrenal mass. Kidneys show normal size and contour. There is 4 mm faint calcification low er pole left kidney. There is no hydronephrosis. Ureters are not dilated. There is no retroperitoneal adenopathy. Bladder distends smoothly. There are numerous phleboliths in the pelvis. Uterus is antev erted. There is no ascites. There are diverticula in the large bowel without sign of diverticulitis. There is no mesenteric edema. There is no ascites or free air. The appendix appears normal. The bony pelvis is intact. Lumbar spine is intact. IMPRESSION: THERE IS COLONIC DIVERTICULOSIS WITHOUT DIVERTICULITIS. NONOBSTRUCTING LEFT RENAL CALCULUS. NO EVIDEN CE OF RENAL OBSTRUCTION. NORMAL APPENDIX. CHOLELITHIASIS. CYST IN THE TAIL OF THE PANCREAS COULD BE A PSEUDOCYST. FOLLOW-UP IS RECOMMENDED SHOW LONG-TERM STABI LITY. SPLENOMEGALY WITH SPLENIC VARICES CONSISTENT WITH PORTAL VENOUS HYPERTENSION.
[2019-07-07] MEDS: ONDANSETRON 4 MG/2 ML VIAL IVP PRN (00:05)
[2019-07-07] MEDS: HEPARIN SODIUM,PORCINE 5,000 UNIT/ML 1 ML VIAL SQ SCH ×2 (00:05→08:08)
[2019-07-07 06:38] LABS: Glucose,Whole Blood 114 mg/dL (75-99)
[2019-07-07] MEDS: IPRATROPIUM-ALBUTEROL 3 ML NEB INHALATION SCH ×2 (07:15→11:34)
[2019-07-07 07:20] LABS: Anisocytosis Slight; Basophils % (A) 1 %; Eosinophils # (A) 0.4 k/uL (0-0.7); Eosinophils % (A) 6 %; HCT 35.4 % (34.0-46.0); HGB 12.7 gm/dL (11.4-16.0); Lymphocytes # (A) 1.6 k/uL (1.0-4.8); Lymphocytes % (A) 27 %; MCH 30.8 pg (25.0-35.0); MCHC 35.8 g/dL (31.0-37.0); MCV 85.8 fL (80.0-100.0); Mean Platelet Volume 7.4; Monocytes # (A) 0.4 k/uL (0-1.0); Monocytes % (A) 8 %; Neutrophils # (A) 3.3 k/uL (1.3-7.7); Neutrophils % (A) 56 %; Platelet Count 147 k/uL (150-450); RBC 4.13 m/uL (3.80-5.40); RDW 16.1 % (11.5-15.5); WBC 5.9 k/uL (3.8-10.6)
[2019-07-07 07:30] VITALS: BP 118/80; TEMP 97.5
[2019-07-07] MEDS ORDERED: PANTOPRAZOLE 40 MG TABLET PO SCH (07:30)
[2019-07-07 07:39] LABS: African American GFR (CKD) >90 (>60 ml/min/1.73 sqM); Anion Gap 6 mmol/L; Blood Urea Nitrogen 12 mg/dL (7-17); Calcium 8.6 mg/dL (8.4-10.2); Carbon Dioxide 26 mmol/L (22-30); Chloride 108 mmol/L (98-107); Glucose 108 mg/dL (74-99); Potassium 4.8 mmol/L (3.5-5.1); Sodium 140 mmol/L (137-145)
[2019-07-07] MEDS: KETOROLAC 30 MG/ML 1 ML VIAL IVP PRN (10:37)
[2019-07-07] MEDS: levETIRAcetam 500 MG TAB PO SCH (11:09)
[2019-07-07] MEDS: LACOSAMIDE 50 MG TABLET PO SCH (11:09)
[2019-07-07 11:37] VITALS: PULSE 72
[2019-07-07 11:53] LABS: Glucose,Whole Blood 154 mg/dL (75-99)
[2019-07-07] MEDS ORDERED: AZITHROMYCIN 500 MG TAB PO SCH (12:00)
[2019-07-07 12:34] LABS: Albumin 3.5 g/dL (3.5-5.0); Bilirubin, Delta 0.2 mg/dL (0.0-0.2); Total Bilirubin 0.2 mg/dL (0.2-1.3); Total Protein 6.6 g/dL (6.3-8.2)
--- NOTE | 2019-07-12 15:51 | P.PN ---
Subjective Progress Note Date: 07/06/19 Principal diagnosis: Chest pain. Ruled out ACS Possible early pneumonia Acute seizure episode Patient is a 42-year-old female with known history of nicotine addiction 1 pack per day, diabetes type 2, hyperlipidemia, memory impairment and history of [place] status post cardiac catheterization and no PCI, osteoarthritis and seasonal disorder as well as obstructive sleep apnea came to ER with the complaints of chest pain. Patient was initially presented to [facility] and was transferred to [facility] for cardiology evaluation. Patient says that she developed chest pain, mainly upper chest retrosternal and radiates to the right side of the neck And shoulder as well as down the upper arm. Chest pain started around 1 AM and woke her up from sleep. Patient woke her and was brought to the hospital for evaluation. Denied any complaints of nausea, vomiting. No diaphoresis. No headache or dizziness or lightheadedness. No orthopnea no PND. EKG showed normal sinus rhythm. Chest x-ray showed possible air leak and residual pneumonia at the lung base seen only on the lateral view. Mild hypoaeration. Patient denied any fever or chills. Patient is having chronic cough with whitish to iván colored sputum production. Troponin 3 negative. WBC 12.3 Denied any sick contacts at home. No recent illnesses. 07/05/2019 Patient denied any complaints of chest pain today. 2-D echocardiogram showed normal ejection fraction and no significant wall motion abnormalities noted. Otherwise patient is being continued on antibiotics for possible early pneum onia. Cardiology recommends to the stress test as an outpatient. Patient is being discharged home today and suddenly started having tonic-clonic seizures. Patient was given IV Ativan and continue with her home antiepileptic medications. Monitor for 24 hours. 07/06/2018 Patient is complaining of abdominal pain mainly epigastric region today. No nausea no vomiting. No complaints of chest pain or shortness of breath. Amylase and lipase levels are not elevated. Patient is being continued on PPI. CT of the abdomen pelvis was done which showed nonobstructive renal calculus and splenomegaly splenic varices consistent with portal venous hypertension. Patient is being continued on pain management with Toradol and morphine IV. As needed. No headache or dizziness or lightheadedness. No fever no chills. No cough or sputum production. Current medications reviewed. Objective - Vital Signs Vital signs: Vital Signs Temp 97.9 F 07/06/19 19:49 Pulse 76 07/06/19 20:19 Resp 18 07/06/19 19:49 BP 108/67 07/06/19 19:49 Pulse Ox 97 07/06/19 19:49 Intake & Output 07/06/19 07/06/19 07/07/19 06:59 18:59 06:59 Intake Total 0 540 Balance 0 540 Intake: Oral 0 540 Other: Voiding Method Toilet Toilet Toilet # Voids 1 2 - Exam PHYSICAL EXAMINATION: Patient is lying in the bed comfortably, no acute distress, awake alert and oriented.. HEENT: Normocephalic. Neck is supple. Pupils reactive. Nostrils clear. Oral cavity is moist. Ears reveal no drainage. Neck reveals no JVD, carotid bruits, or thyromegaly. CHEST EXAMINATION: Trachea is central. Symmetrical expansion. Lung allison clear to auscultation and percussion. CARDIAC: Normal S1, S2 with no gallops. No murmurs ABDOMEN: Soft. Bowel sounds normal. No organomegaly. No abdominal bruits. Extremities: reveal no edema. No clubbing or cyanosis Neurologically awake, alert, oriented x3 with well-coordinated movements. No focal deficits noted Skin: No rash or skin lesions. Psychiatric: Coperative. Nonsuicidal Musculoskeletal: No joint swelling or deformity. Normal range of motion. - Labs CBC & Chem 7: 07/07/19 06:31 07/07/19 06:33 Labs: Abnormal Lab Results - Last 24 Hours (Table) 07/06/19 07/06/19 07/06/19 Range/Units 05:51 06:40 11:41 Chloride 110 H (98-107) mmol/L Creatinine 0.47 L (0.52-1.04) mg/dL Glucose 163 H (74-99) mg/dL POC Glucose (mg/dL) 162 H 265 H (75-99) mg/dL 07/06/19 07/06/19 Range/Units 16:21 19:51 Chloride (98-107) mmol/L Creatinine (0.52-1.04) mg/dL Glucose (74-99) mg/dL POC Glucose (mg/dL) 173 H 216 H (75-99) mg/dL Assessment and Plan Assessment: Epigastric abdominal pain. Possible gastritis. CT of the abdomen pelvis reviewed. Atypical chest pain. Ruled out ACS. Serial troponin 3 negative. 2-D echo cardiac exam showed normal ejection fraction. Possible bibasilar early pneumonia. Acute seizures episode. Nicotine addiction Hyperglycemia with uncontrolled diabetes type 2 Memory impairment osteoarthritis History of seizure disorder Obstructive sleep apnea Familial hypertriglyceridemia History of migraine headaches Nicotine addiction with currently with a smoker Anxiety/depression DVT prophylaxis Plan: Patient be continued on telemetry monitoring. Serial EKG, troponin 3 negative. 2-D echocardiogram reviewed.. Continue on antibiotics in the form of ceftriaxone and azithromycin. Continue with breathing treatments and follow up closely. Cardiology is recommends outpatient stress test.. Continue with home medications and insulin sliding scale. Continue with pain management. Further recommendations based on the clinical course. Smoking cessation has been counseled extensively. Time with Patient: Greater than 30
--- NOTE | 2019-07-12 15:55 | P.DS ---
Providers Date of admission: 07/04/19 06:13 Expected date of discharge: 07/07/19 Attending physician: Edgar Ko Consults: 07/04/19 06:41 Consult Physician Stat Consulting Provider: Raymond Childs Consult Reason/Comments: MA rule out, chest pain. Do you want consulting provider notified?: Yes Primary care physician: [facility] Course: Discharge diagnosis Epigastric abdominal pain. Possible gastritis. CT of the abdomen pelvis reviewed. Atypical chest pain. Ruled out ACS. Serial troponin 3 negative. 2-D echo cardiac exam showed normal ejection fraction. Possible bibasilar early pneumonia. Acute seizures episode. Nicotine addiction Hyperglycemia with uncontrolled diabetes type 2 Memory impairment osteoarthritis History of seizure disorder Obstructive sleep apnea Familial hypertriglyceridemia History of migraine headaches Nicotine addiction with currently with a smoker Anxiety/depression DVT prophylaxis Hospital course Patient is a 42-year-old female with known history of nicotine addiction 1 pack per day, diabetes type 2, hyperlipidemia, memory impairment and history of MA status post cardiac catheterization and no PCI, osteoarthritis and seasonal disorder as well as obstructive sleep apnea came to ER with the complaints of chest pain. Patient was initially presented to [facility] and was transferred to [facility] for cardiology evaluation. Patient says that she developed chest pain, mainly upper chest retrosternal and radiates to the right side of the neck And shoulder as well as down the upper arm. Chest pain started around 1 AM and woke her up from sleep. Patient woke her and was brought to the hospital for evaluation. Denied any complaints of nausea, vomiting. No diaphoresis. No headache or dizziness or lightheadedness. No orthopnea no PND. EKG showed normal sinus rhythm. Chest x-ray showed possible air leak and residual pneumonia at the lung base seen only on the lateral view. Mild hy poaeration. Patient denied any fever or chills. Patient is having chronic cough with whitish to iván colored sputum production. Troponin 3 negative. WBC 12.3 Denied any sick contacts at home. No recent illnesses. 07/05/2019 Patient denied any complaints of chest pain today. 2-D echocardiogram showed normal ejection fraction and no significant wall motion abnormalities noted. Otherwise patient is being continued on antibiotics for possible early pneumonia. Cardiology recommends to the stress test as an outpatient. Patient is being discharged home today and suddenly started having tonic-clonic seizures. Patient was given IV Ativan and continue with her home antiepileptic medications. Monitor for 24 hours. 07/06/2019 Patient is complaining of abdominal pain mainly epigastric region today. No nausea no vomiting. No complaints of chest pain or shortness of breath. Amylase and lipase levels are not elevated. Patient is being continued on PPI. CT of the abdomen pelvis was done which showed nonobstructive renal calculus and splenomegaly splenic varices consistent with portal venous hypertension. Patient is being continued on pain management with Toradol and morphine IV. As needed. No headache or dizziness or lightheadedness. No fever no chills. No cough or sputum production. 07/07/2019 Patient did improve symptomatically today. Still having abdominal pain but CT is negative. Continued on nothing by mouth overnight. Patient was started on oral diet and is tolerating very well. Patient wants to be discharged home today. Patient was advised to stay in the hospital and evaluated by gastroenterology as well. Patient wishes to be discharged and follow-up as an outpatient. Currently hemodynamically stable. Liver enzymes and bilirubin, alk phos within normal limits. No leukocytosis. Patient has been afebrile overnight. Completed antibiotic course for possible pneumonia and recommends to follow up with primary care physician and possible referral to gastroenterology at the time. Patient is being discharged home. Plan: Patient was continued on telemetry monitoring. Serial EKG, troponin 3 negative. 2-D echocardiogram reviewed. Normal EF.. Continue on antibiotics in the form of ceftriaxone and azithromycin. Continued with breathing treatments. Continue with pain management. Cardiology is recommends outpatient stress test.. PHYSICAL EXAMINATION: Patient is lying in the bed comfortably, no acute distress, awake alert and oriented.. HEENT: Normocephalic. Neck is supple. Pupils reactive. Nostrils clear. Oral cavity is moist. Ears reveal no drainage. Neck reveals no JVD, carotid bruits, or thyromegaly. CHEST EXAMINATION: Trachea is central. Symmetrical expansion. Lung allison clear to auscultation and percussion. CARDIAC: Normal S1, S2 with no gallops. No murmurs ABDOMEN: Soft. Bowel sounds normal. No organomegaly. No abdominal bruits. Extremities: reveal no edema. No clubbing or cyanosis Neurologically awake, alert, oriented x3 with well-coordinated movements. No focal deficits noted Skin: No rash or skin lesions. Psychiatric: Coperative. Anxious. Nonsuicidal Musculoskeletal: No joint swelling or deformity. Normal range of motion. Discharge vitals reviewed. Total time taken greater than 35 minutes including 18 minutes for counseling and coordination of care. Patient Condition at Discharge: Stable Plan - Discharge Summary Discharge Rx Participant: Yes New Discharge Prescriptions: New Cefuroxime Axetil [Ceftin] 500 mg PO BID 3 Days #6 tab Albuterol Inhaler [Ventolin Hfa Inhaler] 1 - 2 puff INHALATION RT-Q6H PRN #1 inhaler PRN Reason: Wheezing Pantoprazole [Protonix] 40 mg PO AC-BRKFST #28 tablet.dr Continue metFORMIN HCL 1,000 mg PO BID Insulin Glargine [Lantus] 40 units SQ HS Gemfibrozil [Lopid] 600 mg PO BID Acetaminophen-Codeine 300-30mg [Tylenol w/codeine #3] 1 tab PO Q12H PRN PRN Reason: Pain Ondansetron [Zofran] 4 mg PO Q8H PRN PRN Reason: Nausea And Vomiting Lacosamide [Vimpat] 200 mg PO BID levETIRAcetam [Keppra] 1,000 mg PO BID Ertugliflozin Pidolate [Steglatro] 5 mg PO DAILY ALPRAZolam [Xanax] 0.25 mg PO HS PRN PRN Reason: Anxiety Discharge Medication List Gemfibrozil [Lopid] 600 mg PO BID 08/28/16 [History] Insulin Glargine [Lantus] 40 units SQ HS 08/28/16 [History] metFORMIN HCL 1,000 mg PO BID 08/28/16 [History] Acetaminophen-Codeine 300-30mg [Tylenol w/codeine #3] 1 tab PO Q12H PRN 11/04/16 [History] Ondansetron [Zofran] 4 mg PO Q8H PRN 11/04/16 [History] Lacosamide [Vimpat] 200 mg PO BID 09/22/18 [History] levETIRAcetam [Keppra] 1,000 mg PO BID 09/22/18 [History] ALPRAZolam [Xanax] 0.25 mg PO HS PRN 07/04/19 [History] Ertugliflozin Pidolate [Steglatro] 5 mg PO DAILY 07/04/19 [History] Albuterol Inhaler [Ventolin Hfa Inhaler] 1 - 2 puff INHALATION RT-Q6H PRN #1 inhaler 07/05/19 [Rx] Cefuroxime Axetil [Ceftin] 500 mg PO BID 3 Days #6 tab 07/05/19 [Rx] Pantoprazole [Protonix] 40 mg PO DAVID-MITCHELLFSTati #28 tablet. 07/07/19 [Rx] Follow up Appointment(s)/Referral(s): Pino Lincoln MD [Primary Care Provider] - 1-2 days Alessandra Streeter MD [STAFF PHYSICIAN] - 1 Week (Office will call you with appointment date and time) Patient Instructions/Handouts: Chest Pain (DC) Activity/Diet/Wound Care/Special Instructions: Call cardiology to schedule outpatient stress test Discharge Disposition: HOME SELF-CARE
== END 2019-07-07 15:00 | disposition home or self-care (01) ==
LOC: EC 03:59 → 1SOBS 06:13
PROVIDERS: ADMIT Hospitalist; ATTEND Hospitalist
DX: R07.89 Other chest pain (principal); E11.65 Type 2 diabetes mellitus with hyperglycemia; G40.409 Other generalized epilepsy and epileptic syndromes, not intractable, without status epilepticus; E78.00 Pure hypercholesterolemia, unspecified; F17.210 Nicotine dependence, cigarettes, uncomplicated; F41.9 Anxiety disorder, unspecified; F32.9 Major depressive disorder, single episode, unspecified; E78.1 Pure hyperglyceridemia; G47.33 Obstructive sleep apnea (adult) (pediatric); M19.90 Unspecified osteoarthritis, unspecified site; E78.5 Hyperlipidemia, unspecified; R41.3 Other amnesia; I10 Essential (primary) hypertension; D72.829 Elevated white blood cell count, unspecified; R05 Cough; G43.909 Migraine, unspecified, not intractable, without status migrainosus; G89.29 Other chronic pain; M54.5 Low back pain; E66.9 Obesity, unspecified; Z68.31 Body mass index [BMI] 31.0-31.9, adult; K57.30 Diverticulosis of large intestine without perforation or abscess without bleeding; N20.0 Calculus of kidney; K80.20 Calculus of gallbladder without cholecystitis without obstruction; K86.2 Cyst of pancreas; I86.8 Varicose veins of other specified sites; I25.2 Old myocardial infarction; Z79.891 Long term (current) use of opiate analgesic; Z79.4 Long term (current) use of insulin; Z79.899 Other long term (current) drug therapy; Z91.041 Radiographic dye allergy status; Z87.01 Personal history of pneumonia (recurrent); Z87.19 Personal history of other diseases of the digestive system; Z80.49 Family history of malignant neoplasm of other genital organs; Z80.51 Family history of malignant neoplasm of kidney; Z82.3 Family history of stroke; Z82.49 Family history of ischemic heart disease and other diseases of the circulatory system
CPT/HCPCS: 96365; 96366 ×3; 96367; 96372 ×4; 96375 ×2; 96376 ×3; 99285; 36415; 94640 ×8; 94760 ×2; 93005; 93306; 80053; 80048 ×2; 80076; 82150; 83690; 83735; 84484; 85025 ×3; 85610; 85730; 71046; 74176; G0378 ×4; J2060; J1644 ×4; J2405 ×4; J0456 ×2; J0696 ×4; J1885 ×4; J2270

== ENCOUNTER 2020-06-19 22:04 | Emergency (ER) | payer MEDICARE, OTHER ==
[2020-06-19 22:18] VITALS: BP 146/84; RESP 19; TEMP 98.5
[2020-06-19] MEDS ORDERED: ONDANSETRON ODT 4 MG TAB PO STA (23:29)
[2020-06-19] MEDS ORDERED: HYDROcodone/APAP 5-325MG 1 EACH TAB PO STA (23:29)
[2020-06-19] MEDS ORDERED: SULFAMETH-TMP DS STARTER PACK 2 TAB BTL PO STA (23:29)
[2020-06-19 23:48] VITALS: PULSE 98
[2020-06-19] MEDS ORDERED: LIDOCAINE 1% INJ 10MG/ML (20 ML MDV) SQ ONE (23:52)
--- NOTE | 2020-06-20 00:14 | ED ---
Skin/Abscess/FB HPI - General Chief complaint: Skin/Abscess/Foreign Body Stated complaint: Abscess under arm Time Seen by Provider: 06/19/20 22:44 Source: patient Mode of arrival: ambulatory - History of Present Illness Initial comments: 44 year-old female patient presents to the emergency department today for evaluation of pain and swelling to the right armpit. Patient states that 2 days ago she started with a small pimple which looked like an ingrown hair. States she did try to squeeze it but it did not pop. States that over the last 2 days the area has become much more swollen and tender. States she cannot put her arm down due to the pain. She denies any fevers or chills. States she does have some mild nausea. Denies vomiting. Denies any IV drug use. Denies history of abscess. Patient denies any recent rash, cough, shortness of breath, chest pain, abdominal pain, diarrhea, constipation, back pain, numbness, tingling, dizziness, weakness, hematuria, dysuria, urinary urgency, urinary frequency, headache, visual changes, or any other complaints. - Related Data Home Medications Medication Instructions Recorded Confirmed Insulin Glargine [Lantus] 40 units SQ HS 08/28/16 07/04/19 gemfibroziL [Lopid] 600 mg PO BID 08/28/16 07/04/19 metFORMIN HCL 1,000 mg PO BID 08/28/16 07/04/19 Acetaminophen-Codeine 300-30mg 1 tab PO Q12H PRN 11/04/16 07/04/19 [Tylenol w/codeine #3] Ondansetron [Zofran] 4 mg PO Q8H PRN 11/04/16 07/04/19 Lacosamide [Vimpat] 200 mg PO BID 09/22/18 07/04/19 levETIRAcetam [Keppra] 1,000 mg PO BID 09/22/18 07/04/19 ALPRAZolam [Xanax] 0.25 mg PO HS PRN 07/04/19 07/04/19 Ertugliflozin Pidolate [Steglatro] 5 mg PO DAILY 07/04/19 07/04/19 Previous Rx's Medication Instructions Recorded Albuterol Inhaler (Mhu) [Ventolin 1 - 2 puff INHALATION RT-Q6H PRN 07/05/19 Hfa Inhaler (Mhu)] #1 inhaler Cefuroxime Axetil [Ceftin] 500 mg PO BID 3 Days #6 tab 07/05/19 Pantoprazole [Protonix] 40 mg PO DAVID-BRKFST #28 tablet. 07/07/19 Sulfamethoxazole/Trimethoprim 1 each PO BID #20 tablet 06/20/20 [Bactrim DS 800-160 mg] Allergies Allergy/AdvReac Type Severity Reaction Status Date / Time Iodinated Contrast Media Allergy Unknown Verified 06/19/20 22:19 [Iodinated Contrast Media - IV Dye] Review of Systems ROS Statement: Those systems with pertinent positive or pertinent negative responses have been documented in the HPI. ROS Other: All systems not noted in ROS Statement are negative. Past Medical History Past Medical History: Chest Pain / Angina, Diabetes Mellitus, Hyperlipidemia, Memory Impairment, Myocardial Infarction ([place]), Osteoarthritis (OA), Seizure Disorder, Sleep Apnea/CPAP/BIPAP Additional Past Medical History / Comment(s): Previous 2 seizures in 2016, familial hypertriglyceridemia, pancreatitis, IDDM type II, migraines, CPAP but not using, arthritis multiple joints, chronic low back, [place] 2007. Heart valve spasm Last Myocardial Infarction Date:: 2007 History of Any Multi-Drug Resistant Organisms: None Reported Past Surgical History: Back Surgery, Heart Catheterization, Orthopedic Surgery Additional Past Surgical History / Comment(s): Cardiac cath-normal, low back surgery, L ankle surgery for entrapped vessels, L knee arthroscopy. Past Anesthesia/Blood Transfusion Reactions: No Reported Reaction Past Psychological History: Anxiety, Depression Smoking Status: Current every day smoker Past Alcohol Use History: Rare Past Drug Use History: None Reported - Past Family History Father Family Medical History: Congestive Heart Failure (CHF) Additional Family Medical History / Comment(s): Father at the age of 59 yrs from CHF. Mother Family Medical History: Cancer, CVA/TIA, Myocardial Infarction ([place]) Additional Family Medical History / Comment(s): Mother has had CVAs and MIs with one [place] while in her late 30's. She had renal carcinoma Sister(s) Family Medical History: Cancer Additional Family Medical History / Comment(s): sister with cervical cancer, at the age 37 General Exam General appearance: alert, in no apparent distress, other (This is a well-develo ped, well-nourished adult female patient in no acute distress. Vital signs upon presentation are temperature 98.5F, pulse 118, respirations 19, blood pressure 146/84, pulse ox 100% on room air) Respiratory exam: Present: normal lung sounds bilaterally. Absent: respiratory distress, wheezes, rales, rhonchi, stridor Cardiovascular Exam: Present: regular rate, normal rhythm, normal heart sounds. Absent: systolic murmur, diastolic murmur, rubs, gallop, clicks Extremities exam: Present: full ROM, normal capillary refill, other (There is a 4 cm x 3 cm abscess noted to the right axillary region. There is small amount of overlying erythema. Area is quite fluctuant and tender to touch. Skin is otherwise pink, warm, dry. Cap refills less than 3 seconds. Radial pulses 2+ and equal bilaterally.). Absent: normal inspection, tenderness, pedal edema, joint swelling, calf tenderness Neurological exam: Present: alert, oriented X3, CN II-XII intact Psychiatric exam: Present: normal affect, normal mood Skin exam: Present: warm, dry, intact, normal color. Absent: rash Course Vital Signs 06/19/20 06/19/20 22:15 23:48 Temperature 98.5 F Pulse Rate 118 H 98 Respiratory 19 Rate Blood Pressure 146/84 O2 Sat by Pulse 100 96 Oximetry Procedures - [place] Protocol (Time Out) Procedure Performed:: incision and drainage of right armpit Performing Provider: Gregoria Alexander Nurse: Tiffanie Acosta Patient Identification (2 identifiers required): Chart, Verbal, Arm Band, Birthdate Patient/Legal Freight Traffic Consultant has Confirmed: Identity, Site, Procedure, Consent - Incision & Drainage Consent Obtained: written consent Indication: Abscess Site: other (Right axilla) Size (cm): 4 Anesthetic Used: lidocaine 1% Amount (mLs): 5 I&D Cleaning Method: Chloroprep Scalpel Used: #11 I&D Drainage Obtained: Pus, Blood Culture Obtained?: Yes Patient Tolerated Procedure: well, no complications Medical Decision Making - Medical Decision Making 44 year-old female patient presented to the emergency department today for evaluation of pain and swelling to the right armpit. Physical examination did reveal 4 cm x 3 cm abscess to the right axillary region. There is a small amount of overlying erythema. Area was fluctuant and tender to touch. Did perform incision and drainage. Did have a large amount of purulent fluid drain from the area. Patient tolerated the procedure well. We will start Bactrim. She is instructed to apply warm compresses to the area. She is instructed to follow-up with her primary care physician for recheck in 1-2 days. She verbalizes understanding and agrees with this plan. Disposition Clinical Impression: Abscess of right axilla Disposition: HOME SELF-CARE Condition: Good Instructions (If sedation given, give patient instructions): Abscess Incision and Drainage (ED), Abscess (ED) Additional Instructions: Apply warm compresses to the right armpit 4 times daily. Complete antibiotic pr escription and full. Follow-up with your primary care physician for recheck in 1-2 days. Return to the emergency department immediately for any new, worsening, or concerning symptoms. Prescriptions: Sulfamethoxazole/Trimethoprim [Bactrim DS 800-160 mg] 1 each PO BID #20 tablet Is patient prescribed a controlled substance at d/c from ED?: No Referrals: Pino Lincoln MD [Primary Care Provider] - 1-2 days Time of Disposition: 00:14
== END 2020-06-20 00:31 | disposition home or self-care (01) ==
LOC: EC 22:04
DX: L02.411 Cutaneous abscess of right axilla (principal); R11.0 Nausea; F41.9 Anxiety disorder, unspecified; F32.9 Major depressive disorder, single episode, unspecified; G47.33 Obstructive sleep apnea (adult) (pediatric); E11.9 Type 2 diabetes mellitus without complications; E78.5 Hyperlipidemia, unspecified; G40.909 Epilepsy, unspecified, not intractable, without status epilepticus; I25.2 Old myocardial infarction; F17.200 Nicotine dependence, unspecified, uncomplicated; Z79.4 Long term (current) use of insulin; Z79.899 Other long term (current) drug therapy; Z91.041 Radiographic dye allergy status; Z95.5 Presence of coronary angioplasty implant and graft; Z99.89 Dependence on other enabling machines and devices
CPT/HCPCS: 87070; 87205; 99283; 10060; J2001

== ENCOUNTER 2020-09-10 12:23 | Emergency (ER) | payer MEDICARE, OTHER ==
[2020-09-10 12:36] VITALS: RESP 18
--- NOTE | 2020-09-10 12:56 | ED ---
General Adult HPI - General Chief complaint: Abdominal Pain Stated complaint: Abd Pain Time Seen by Provider: 09/10/20 12:38 Source: patient, EMS Mode of arrival: EMS - History of Present Illness Initial comments: Dictation was produced using [employer] dictation software. please excuse any grammatical, word or spelling errors. This patient was cared for during a federal and state declared state of emergency secondary to Covid 19 Chief Complaint: 44-year-old female presents from [facility] for ultrasound of the abdomen History of Present Illness: She is a 44 year old female she has multiple comorbidities. She has history of chronic abdominal pain. Since ex given she's been having worsening right-sided abdominal pain she states is the right upper quadrant radiates to the back. She was seen and evaluated initially [facility] where she had workup performed. She had negative labs except for signs of a mild acute urinary tract infection. Her labs looked normal. She did have a CT of the abdomen and pelvis that appeared stable for her. She has history of cholecystectomy. Patient states that she did report significant relief after having been given Dilaudid. She was seen at that same emergency department recently where she was discharged with Tylenol 3's. She states that Tylenol No. 3 did not help her pain. She denies any nausea vomiting. She does report that her symptoms are slightly worse with deep inspiration. She denies any diarrhea. No fever or constitutional symptoms. The ROS documented in this emergency department record has been reviewed and confirmed by me. Those systems with pertinent positive or negative responses have been documented in the HPI. All other systems are other negative and/or noncontributory. PHYSICAL EXAM: General Impression: Alert and oriented x3, not in acute distress HEENT: Normocephalic atraumatic, extra-ocular movements intact, pupils equal and reactive to light bilaterally, mucous membranes moist. Cardiovascular: Heart regular rate and rhythm Chest: Able to complete full sentences, no retractions, no tachypnea, slight tenderness to palpation over the right inferior ribs Abdomen: abdomen soft, non-tender, non-distended, no organomegaly Musculoskeletal: Pulses present and equal in all extremities, no peripheral edema Motor: no focal deficits noted Neurological: CN II-XII grossly intact, no focal motor or sensory deficits noted Skin: Intact with no visualized rashes Psych: Normal affect and mood ED course: 44-year-old female who had extensive workup performed at [facility] emergency department transferred EMS to our hospital for abdominal ultrasound as upon arrival are within acceptable limits. Transfer documentation was reviewed in its entirety. At this point he does not appear that ultrasound abdomen is indicated however because she is transferred here for this we will obtain it.Abdominal ultrasound is suboptimal of this persistent hepatomegaly and market fatty infiltration of the liver redemonstrated. Patient reevaluated at bedside she is in stable medical condition. She is tolerating oral intake. Patient prescription for Fortuna. She has follow-up with GI doctor that she hasn't arranged appeared she strongly urged to follow-up with the GI doctor. His point no indication for admission to the hospitalist time. She is agreeable to discharge. At this point is not entirely clear what is causing patient's symptoms. Likely however secondary to fatty liver versus chest strain. - Related Data Home Medications Medication Instructions Recorded Confirmed Insulin Glargine [Lantus] 40 units SQ HS 08/28/16 07/04/19 gemfibroziL [Lopid] 600 mg PO BID 08/28/16 07/04/19 metFORMIN HCL 1,000 mg PO BID 08/28/16 07/04/19 Acetaminophen-Codeine 300-30mg 1 tab PO Q12H PRN 11/04/16 07/04/19 [Tylenol w/codeine #3] Ondansetron [Zofran] 4 mg PO Q8H PRN 11/04/16 07/04/19 Lacosamide [Vimpat] 200 mg PO BID 09/22/18 07/04/19 levETIRAcetam [Keppra] 1,000 mg PO BID 09/22/18 07/04/19 ALPRAZolam [Xanax] 0.25 mg PO HS PRN 07/04/19 07/04/19 Ertugliflozin Pidolate [Steglatro] 5 mg PO DAILY 07/04/19 07/04/19 Previous Rx's Medication Instructions Recorded Albuterol Inhaler (Mhu) [Ventolin 1 - 2 puff INHALATION RT-Q6H PRN 07/05/19 Hfa Inhaler (Mhu)] #1 inhaler Cefuroxime Axetil [Ceftin] 500 mg PO BID 3 Days #6 tab 07/05/19 Pantoprazole [Protonix] 40 mg PO AC-BRKFST #28 tablet. 07/07/19 Sulfamethoxazole/Trimethoprim 1 each PO BID #20 tablet 06/20/20 [Bactrim DS 800-160 mg] HYDROcodone/APAP 5-325MG [Fortuna 1 tab PO Q6HR PRN 3 Days #12 tab 09/10/20 5-325] Allergies Allergy/AdvReac Type Severity Reaction Status Date / Time Iodinated Contrast Media Allergy Unknown Verified 06/19/20 22:19 [Iodinated Contrast Media - IV Dye] Review of Systems ROS Statement: Those systems with pertinent positive or pertinent negative responses have been documented in the HPI. ROS Other: All systems not noted in ROS Statement are negative. Past Medical History Past Medical History: Chest Pain / Angina, Diabetes Mellitus, Hyperlipidemia, Memory Impairment, Myocardial Infarction ([place]), Osteoarthritis ([place]), Seizure Disorder, Sleep Apnea/CPAP/BIPAP Additional Past Medical History / Comment(s): Previous 2 seizures in 2016, familial hypertriglyceridemia, pancreatitis, IDDM type II, migraines, CPAP but not using, arthritis multiple joints, chronic low back, [place] 2007. Heart valve spasm Last Myocardial Infarction Date:: 2007 History of Any Multi-Drug Resistant Organisms: None Reported Past Surgical History: Back Surgery, Heart Catheterization, Orthopedic Surgery Additional Past Surgical History / Comment(s): Cardiac cath-normal, low back surgery, L ankle surgery for entrapped vessels, L knee arthroscopy. Past Anesthesia/Blood Transfusion Reactions: No Reported Reaction Past Psychological History: Anxiety, Depression Smoking Status: Current every day smoker Past Alcohol Use History: Rare Past Drug Use History: None Reported - Past Family History Father Family Medical History: Congestive Heart Failure (CHF) Additional Family Medical History / Comment(s): Father at the age of 59 yrs from CHF. Mother Family Medical History: Cancer, CVA/TIA, Myocardial Infarction ([place]) Additional Family Medical History / Comment(s): Mother has had CVAs and MIs with one [place] while in her late 30's. She had renal carcinoma Sister(s) Family Medical History: Cancer Additional Family Medical History / Comment(s): sister with cervical cancer, at the age 37 Course Vital Signs 09/10/20 12:29 Temperature 98.2 F Pulse Rate 90 Respiratory 18 Rate Blood Pressure 128/92 O2 Sat by Pulse 97 Oximetry Disposition Clinical Impression: Abdominal pain Disposition: HOME SELF-CARE Condition: Good Instructions (If sedation given, give patient instructions): Abdominal Pain (ED) Prescriptions: HYDROcodone/APAP 5-325MG [Fortuna 5-325] 1 tab PO Q6HR PRN 3 Days #12 tab PRN Reason: Severe Pain Is patient prescribed a controlled substance at d/c from ED?: Yes If prescribed controlled substance>3 days was MAPS reviewed?: Prescribed <3 Days Referrals: Pino Lincoln MD [Primary Care Provider] - 1-2 days Time of Disposition: 13:34
--- NOTE | 2020-09-10 13:26 | US ---
EXAMINATION TYPE: US abdomen complete DATE OF EXAM: 09/10/2020 COMPARISON: CT July 06, 2019 CLINICAL HISTORY: right sided abdominal pain. GB removed. Generalized pain. EXAM MEASUREMENTS: Liver Length: 21.9 cm Spleen: 12.9 cm Right Kidney: 14.7 x 5.7 x 5.9 cm Left Kidney: 15.0 x 6.0 x 6.6 cm Pancreas: Tail obscured by overlying bowel gas Liver: Increased attenuation, decreased visualization of vessels suggestive of fatty infiltrate. En larged in size. Coarse in appearance. Gallbladder: No stones seen Evidence for sonographic Roe's sign: neg CBD: Surgically absent Spleen: wnl Right Kidney: No hydronephrosis or masses seen. Enlarged in size. Left Kidney: No hydronephrosis or masses seen. Enlarged in size. Upper IVC: Obscured by overlying bowel gas Abd Aorta: Obscured by overlying bowel gas The visualized liver is markedly heterogeneously hyperechoic. The intrahepatic portion of the IVC an d proximal abdominal aorta are within normal limits. Gallbladder is surgically absent. Common bile d uct is unremarkable. The visualized portions of the pancreas are homogenous. The spleen is upper li mits of normal in size. Kidneys are symmetric and mildly enlarged without hydronephrosis. No renal lesions are seen on images saved. IMPRESSION: Suboptimal study without acute finding identified. Persistent hepatomegaly And marked fat ty infiltration of liver redemonstrated.
[2020-09-10] MEDS ORDERED: HYDROmorphone 0.5 MG/0.5 ML SYRINGE IVP STA (13:42)
[2020-09-10 13:49] VITALS: BP 130/77; PULSE 78; TEMP 98.5
== END 2020-09-10 13:50 | disposition home or self-care (01) ==
LOC: EC 12:23
DX: R10.11 Right upper quadrant pain (principal); R16.0 Hepatomegaly, not elsewhere classified; K76.0 Fatty (change of) liver, not elsewhere classified; E11.9 Type 2 diabetes mellitus without complications; E78.5 Hyperlipidemia, unspecified; I25.2 Old myocardial infarction; M19.90 Unspecified osteoarthritis, unspecified site; G40.909 Epilepsy, unspecified, not intractable, without status epilepticus; F17.200 Nicotine dependence, unspecified, uncomplicated; F41.9 Anxiety disorder, unspecified; F32.9 Major depressive disorder, single episode, unspecified; G89.29 Other chronic pain; M54.5 Low back pain; G43.909 Migraine, unspecified, not intractable, without status migrainosus; Z79.4 Long term (current) use of insulin; Z79.899 Other long term (current) drug therapy; Z91.041 Radiographic dye allergy status; Z87.19 Personal history of other diseases of the digestive system; Z95.5 Presence of coronary angioplasty implant and graft
CPT/HCPCS: 99284; 96374; 76700; J1170

== ENCOUNTER 2022-08-03 21:39 | Emergency (ER) | payer MEDICARE, OTHER ==
[2022-08-03 21:55] VITALS: TEMP 98.1
[2022-08-03] MEDS ORDERED: SODIUM CHLORIDE 0.9% 500 ML 500 ML IV STA (22:54)
[2022-08-03] MEDS ORDERED: MORPHINE SULFATE 4 MG/ML SYRINGE IVP STA (22:54)
[2022-08-03 23:13] LABS: Basophils # (A) 0.1 k/uL (0-0.2); Basophils % (A) 1 %; Eosinophils # (A) 0.1 k/uL (0-0.7); Eosinophils % (A) 2 %; HCT 38.2 % (34.0-46.0); HGB 13.5 gm/dL (11.4-16.0); Lymphocytes # (A) 2.2 k/uL (1.0-4.8); Lymphocytes % (A) 27 %; MCH 29.4 pg (25.0-35.0); MCHC 35.3 g/dL (31.0-37.0); MCV 83.3 fL (80.0-100.0); Mean Platelet Volume 8.1; Monocytes # (A) 0.5 k/uL (0-1.0); Monocytes % (A) 6 %; Neutrophils # (A) 5.2 k/uL (1.3-7.7); Neutrophils % (A) 64 %; Platelet Count 201 k/uL (150-450); RBC 4.58 m/uL (3.80-5.40); RDW 13.7 % (11.5-15.5); WBC 8.2 k/uL (3.8-10.6)
[2022-08-03 23:27] LABS: ALT 30 U/L (4-34); AST 30 U/L (14-36); African American GFR (CKD) >90 (>60 ml/min/1.73 sqM); Albumin 4.1 g/dL (3.5-5.0); Alkaline Phosphatase 96 U/L (38-126); Anion Gap 11 mmol/L; Blood Urea Nitrogen 16 mg/dL (7-17); Calcium 8.9 mg/dL (8.4-10.2); Carbon Dioxide 25 mmol/L (22-30); Chloride 99 mmol/L (98-107); Glucose 383 mg/dL (74-99); INR 0.9 (<1.2); Magnesium 1.8 mg/dL (1.6-2.3); Non-African American GFR(CKD) >90 (>60 ml/min/1.73 sqM); Partial Thromboplastin Time 24.1 sec (22.0-30.0); Prothrombin Time 9.8 sec (9.0-12.0); Sodium 135 mmol/L (137-145); Total Bilirubin 0.6 mg/dL (0.2-1.3); Total Protein 7.1 g/dL (6.3-8.2)
[2022-08-03 23:29] LABS: Potassium 4.6 mmol/L (3.5-5.1)
--- NOTE | 2022-08-03 23:40 | CT ---
EXAMINATION TYPE: CT brain jason wo con DATE OF EXAM: 08/03/2022 COMPARISON: CT brain 12/05/2017 HISTORY: fall CT DLP: 1425.1 mGycm Automated exposure control for dose reduction was used. Images of the brain and cervical spine obtained with no contrast. Ventricles of normal size. There is no mass effect normal Shift. No sign of intracranial hemorrhage. Calvarium is intact. Cervical vertebra show mild straightening. Disc spaces are normal. Posterior elements are intact. No compression fracture. Facet joints are intact. There is some mild anterior spurring at C5-6 and C6-7. There is multilevel mild cervical facet arthropathy. Skull base is intact. There is normal aeration of the mastoid sinuses. IMPRESSION: Negative CT scan of the brain. No change. Minor degenerative changes in the cervical spine. No fracture.
--- NOTE | 2022-08-03 23:58 | XR ---
EXAMINATION TYPE: XR chest 2V DATE OF EXAM: 08/03/2022 COMPARISON: 07/04/2019 HISTORY: Trauma. Chest pain TECHNIQUE: FINDINGS: There is no heart failure nor confluent pneumonic infiltrate. Costophrenic angles are clear . There are chest leads. Bony thorax is intact. IMPRESSION: No active cardiopulmonary disease. There is clearing of the mild pneumonia left lower lob e compared to the old exam.
--- NOTE | 2022-08-04 00:01 | XR ---
EXAMINATION TYPE: XR tibia fibula LT DATE OF EXAM: 08/03/2022 COMPARISON: NONE HISTORY: Pain TECHNIQUE: 2 view FINDINGS: Tibia and fibula appear intact. Ankle joint and knee joint appear intact. No pathologic soraya cification. IMPRESSION: Negative left tibia and fibula exam.
--- NOTE | 2022-08-04 00:01 | XR ---
EXAMINATION TYPE: XR knee complete LT DATE OF EXAM: 08/03/2022 COMPARISON: NONE HISTORY: Seizure. Fall pain TECHNIQUE: 3 views FINDINGS: I see no fracture nor dislocation. Joint spaces are fairly normal. There is spurring on the anterior patella. No joint effusion. IMPRESSION: Negative left knee exam. No fracture.
--- NOTE | 2022-08-04 00:02 | XR ---
EXAMINATION TYPE: XR ankle complete LT DATE OF EXAM: 08/03/2022 COMPARISON: NONE HISTORY: Seizure. Pain TECHNIQUE: 3 views FINDINGS: I see no fracture nor dislocation. Joint spaces are normal. Ankle mortise is anatomic. IMPRESSION: Negative left ankle exam.
--- NOTE | 2022-08-04 00:03 | XR ---
EXAMINATION TYPE: XR foot complete LT DATE OF EXAM: 08/03/2022 COMPARISON: NONE HISTORY: Pain TECHNIQUE: 3 views FINDINGS: There are acute transverse fractures at the neck of the second and third and fourth and fif th metatarsal heads. There is mild impaction. No dislocation. There is some mild soft tissue swelling of the forefoot. The toes are intact. IMPRESSION: Multiple acute metatarsal head fractures.
--- NOTE | 2022-08-04 00:04 | XR ---
EXAMINATION TYPE: XR pelvis AP view DATE OF EXAM: 08/03/2022 COMPARISON: NONE HISTORY: Fall. Pain TECHNIQUE: Single view FINDINGS: The pelvic ring is intact. Proximal femurs and hip joints are intact. Sacroiliac joints are intact. IMPRESSION: Negative exam. No fracture seen. Minimal hip joint space narrowing.
[2022-08-04] MEDS ORDERED: HYDROmorphone 0.5 MG/0.5 ML SYRINGE IVP STA ×2 (00:08→00:12)
[2022-08-04] MEDS ORDERED: ONDANSETRON 4 MG/2 ML VIAL IVP STA (00:13)
--- NOTE | 2022-08-04 01:15 | ED ---
General Adult HPI - General Chief complaint: Fall Stated complaint: Seizure, left foot injury Time Seen by Provider: 08/03/22 22:40 Source: patient, EMS, RN notes reviewed, old records reviewed Mode of arrival: EMS Limitations: no limitations - History of Present Illness Initial comments: Patient is a 46-year-old female with past medical history remarkable for cardiac disease, diabetes, seizure disorder who suffered a witnessed trip and fall at home. States she stepped on a child's toy and fell "my foot folded in half." States she fell onto the ground. Does have a history of seizures that require Versed to treat them. When EMS arrived, she did have a seizure that resolved with versed. She took her home med of Keppra prior to arrival here in the department. He is not postictal. Did not bite her tongue. Is only complaining of left ankle injury. Didn't hit her head when she fell but does not believe she lost consciousness. Has no other acute injuries at this time. Is not on blood thinners. - Related Data Home Medications Medication Instructions Recorded Confirmed Insulin Glargine [Lantus Vial] 40 units SQ HS 08/28/16 07/04/19 gemfibroziL [Lopid] 600 mg PO BID 08/28/16 07/04/19 metFORMIN HCL [Glucophage] 1,000 mg PO BID 08/28/16 07/04/19 Acetaminophen-Codeine 300-30mg 1 tab PO Q12H PRN 11/04/16 07/04/19 [Tylenol w/codeine #3] Ondansetron [Zofran] 4 mg PO Q8H PRN 11/04/16 07/04/19 Lacosamide [Vimpat] 200 mg PO BID 09/22/18 07/04/19 levETIRAcetam [Keppra] 1,000 mg PO BID 09/22/18 07/04/19 ALPRAZolam [Xanax] 0.25 mg PO HS PRN 07/04/19 07/04/19 Ertugliflozin Pidolate [Steglatro] 5 mg PO DAILY 07/04/19 07/04/19 Previous Rx's Medication Instructions Recorded Albuterol Inhaler [Ventolin Hfa 1 - 2 puff INHALATION RT-Q6H PRN 07/05/19 Inhaler] #1 inhaler cefUROXime axetiL [Ceftin] 500 mg PO BID 3 Days #6 tab 07/05/19 Pantoprazole [Protonix] 40 mg PO AC-BRKFST #28 tablet. 07/07/19 Sulfamethoxazole/Trimethoprim 1 each PO BID #20 tablet 06/20/20 [Bactrim DS 800-160 mg] HYDROcodone/APAP 5-325MG [[place] 1 tab PO Q6HR PRN 3 Days #12 tab 09/10/20 5-325] Allergies Allergy/AdvReac Type Severity Reaction Status Date / Time Iodinated Contrast Media Allergy Unknown Verified 06/19/20 22:19 [Iodinated Contrast Media - IV Dye] Review of Systems ROS Statement: Those systems with pertinent positive or pertinent negative responses have been documented in the HPI. Review of Systems: CONST: Denies fever EYES: Denies blurry vision ENT: Denies nasal congestion C/V: Denies Chest pain RESP: Denies shortness of breath GI: Denies abdominal pain : Denies dysuria SKIN: Denies rash. MSK: Endorses left ankle/foot pain NEURO: Denies headache ROS Other: All systems not noted in ROS Statement are negative. Past Medical History Past Medical History: Chest Pain / Angina, Diabetes Mellitus, Hyperlipidemia, Memory Impairment, Myocardial Infarction ([place]), Osteoarthritis (OA), Seizure Disorder, Sleep Apnea/CPAP/BIPAP Additional Past Medical History / Comment(s): Previous 2 seizures in 2016, familial hypertriglyceridemia, pancreatitis, IDDM type II, migraines, CPAP but not using, arthritis multiple joints, chronic low back, [place] 2007. Heart valve spasm Last Myocardial Infarction Date:: 2007 History of Any Multi-Drug Resistant Organisms: None Reported Past Surgical History: Back Surgery, Heart Catheterization, Orthopedic Surgery Additional Past Surgical History / Comment(s): Cardiac cath-normal, low back surgery, L ankle surgery for entrapped vessels, L knee arthroscopy. Past Anesthesia/Blood Transfusion Reactions: No Reported Reaction Past Psychological History: Anxiety, Depression Smoking Status: Current every day smoker Past Alcohol Use History: Rare Past Drug Use History: None Reported - Past Family History Father Family Medical History: Congestive Heart Failure (CHF) Additional Family Medical History / Comment(s): Father at the age of 59 yrs from CHF. Mother Family Medical History: Cancer, CVA/TIA, Myocardial Infarction ([place]) Additional Family Medical History / Comment(s): Mother has had CVAs and MIs with one [place] while in her late 30's. She had renal carcinoma Sister(s) Family Medical History: Cancer Additional Family Medical History / Comment(s): sister with cervical cancer, at the age 37 General Exam - General Exam Comments Initial Comments: General: Appears in no acute distress. HEAD: Normal with no signs of head trauma. EYES: PERRLA, EOMI, conjunctiva normal, no discharge. ENT: Hearing grossly intact, normal oropharynx. RESPIRATORY: Clear breath sounds bilaterally. No wheezes, rales, or rhonchi. C/V: Regular rate and rhythm. S1 and S2 auscultated, no edema, peripheral pu lses 2+ and intact throughout ABD: Abd is soft, nontender, nondistended EXT: Reduced range of motion of the left sided toes, foot, ankle due to pain in the foot. No obvious deformity. Neurovascularly intact throughout. Pelvis is stable. No midline cervical, thoracic, lumbar spine tenderness to palpation. SKIN: No rashes or lesions observed on exposed skin. NEURO: Alert and oriented x 4. Cranial nerves II-XII intact. No focal sensory or strength deficits. GCS of 15. Limitations: no limitations Course Vital Signs 08/03/22 08/03/22 08/04/22 21:46 23:05 00:25 Temperature 98.1 F Pulse Rate 91 87 92 Respiratory 17 17 Rate Blood Pressure 124/77 121/79 132/83 O2 Sat by Pulse 95 98 97 Oximetry Procedures - Orthopedic Splinting/Casting Injury #1 Side: left Lower Extremity Injury Location: short leg, foot Lower Extremity Immobilizer: stirrup splint Additional Comments: Neurovascularly intact following splinting. less than 2 second capillary refill. Good sensation. Medical Decision Making - Medical Decision Making Based on the patient's presentation and physical exam, she suffered a fall, and also had a seizure. Unknown if the seizure was secondary to fall or her normal seizure disorder. Would like to obtain CT brain as well as plain film x-rays of the chest, pelvis, left leg. History of the left ankle and foot injury. Patient was in agreement this plan. She will receive IV pain medications. We will also obtain basic laboratory studies as well as an EKG. Patient was in agreement with this plan. Patient did receive IV fentanyl from EMS prior to arr ival, and when I evaluated her it was beginning to wear off which is why we redosed her. Vital signs within acceptable limits. CT brain showed no acute intracranial process. CT C-spine showed no acute process. Plain film x-rays were all negative except for the left foot which revealed distal metatarsal head fractures of the second, third, fourth, fifth digits. Appear nondisplaced or minimally displaced. Laboratory studies are remarkable for hyperglycemia in the setting of diabetes. No other findings. EKG shows no signs of acute ischemia. On reevaluation, I updated the patient. We will splint her left foot. I did speak with neck branch of on-call orthopedics was in agreement this plan and patient can follow up with Dr. Oh on Saturday. Patient already has crutches and will have her right bring them with her. She is on [place] [facility] at home for pain control and is not want any home pain medications. Will use [id number] Motrin as needed. Patient tolerated splinting well. Neurovascular intact afterwards. She'll be discharged home at this time. No substance seizures after multiple hours of observation here in the department. I instructed the patient to follow up with their PCP in the next 1-3 days. I provided contact information for follow up with orthopedics. I explained that the patient should return to the emergency department if they experience any worsening symptoms. Strict return precautions were discussed with the patient. The patient expressed understanding of these instructions. I answered all questions that the patient had. The patient was discharged home in good condition with their prescriptions and follow up information. - Lab Data Result diagrams: 08/03/22 23:05 08/03/22 23:05 Lab Results 08/03/22 08/03/22 08/03/22 Range/Units 23:05 23:05 23:05 WBC 8.2 (3.8-10.6) k/uL RBC 4.58 (3.80-5.40) m/uL Hgb 13.5 (11.4-16.0) gm/dL Hct 38.2 (34.0-46.0) % MCV 83.3 (80.0-100.0) fL MCH 29.4 (25.0-35.0) pg MCHC 35.3 (31.0-37.0) g/dL RDW 13.7 (11.5-15.5) % Plt Count 201 (150-450) k/uL MPV 8.1 Neutrophils % 64 % Lymphocytes % 27 % Monocytes % 6 % Eosinophils % 2 % Basophils % 1 % Neutrophils # 5.2 (1.3-7.7) k/uL Lymphocytes # 2.2 (1.0-4.8) k/uL Monocytes # 0.5 (0-1.0) k/uL Eosinophils # 0.1 (0-0.7) k/uL Basophils # 0.1 (0-0.2) k/uL PT 9.8 (9.0-12.0) sec INR 0.9 (<1.2) APTT 24.1 (22.0-30.0) sec Sodium 135 L (137-145) mmol/L Potassium 4.6 (3.5-5.1) mmol/L Chloride 99 (98-107) mmol/L Carbon Dioxide 25 (22-30) mmol/L Anion Gap 11 mmol/L BUN 16 (7-17) mg/dL Creatinine 0.42 L (0.52-1.04) mg/dL Est GFR (CKD-EPI)AfAm >90 (>60 ml/min/1.73 sqM) Est GFR (CKD-EPI)NonAf >90 (>60 ml/min/1.73 sqM) Glucose 383 H (74-99) mg/dL Calcium 8.9 (8.4-10.2) mg/dL Magnesium 1.8 (1.6-2.3) mg/dL Total Bilirubin 0.6 (0.2-1.3) mg/dL AST 30 (14-36) U/L ALT 30 (4-34) U/L Alkaline Phosphatase 96 (38-126) U/L Total Protein 7.1 (6.3-8.2) g/dL Albumin 4.1 (3.5-5.0) g/dL - EKG Data -: EKG Interpreted by Me EKG Comments: 12-lead Electrocardiogram Interpretation Note EKG was reviewed and interpreted by myself. 12-lead ECG performed at 2302 to is interpreted by me as revealing normal sinus rhythm at a rate of 81 beats per minute. [place] is normal. MS interval is 178 ms, QRS duration is 103 ms, QTc is 409 ms.. There were no ST or T wave abnormalities to suggest myocardial ischemia or injury. R wave progression across the precordium was satisfactory. By my interpretation this EKG is non-diagnostic for acute ischemia. Disposition Clinical Impression: Fall, Closed fracture of head of metatarsal bone of left foot Narrative: metatarsal head fractures of left second, third, fourth, fifth digits Disposition: HOME SELF-CARE Condition: Good Instructions (If sedation given, give patient instructions): Foot Fracture in Adults (ED), Fall Prevention for Older Adults (ED) Is patient prescribed a controlled substance at d/c from ED?: No Referrals: Johnnie Voss MD [Primary Care Provider] - 1-2 days Satya Espinoza MD [STAFF PHYSICIAN] - 1-2 days Time of Disposition: 01:00
[2022-08-04 01:37] VITALS: BP 127/78; PULSE 90; RESP 16
[2022-08-04 01:48] LABS: Appearance,Urine Clear (Clear); Bilirubin,Urine Negative (Negative); Blood,Urine Negative (Negative); Color,Urine Light Yellow; Glucose,Urine (UA) 4+ (Negative); Ketones,Urine Negative (Negative); Leukocyte Esterase,Urine Negative (Negative); Nitrite,Urine Negative (Negative); PH, Urine 5.5 (5.0-8.0); Protein,Urine Trace (Negative); Urobilinogen,Urine <2.0 mg/dL (<2.0)
== END 2022-08-04 02:05 | disposition home or self-care (01) ==
LOC: EC 21:39
DX: S92.302A Fracture of unspecified metatarsal bone(s), left foot, initial encounter for closed fracture (principal); E11.9 Type 2 diabetes mellitus without complications; E78.5 Hyperlipidemia, unspecified; I21.9 Acute myocardial infarction, unspecified; M19.90 Unspecified osteoarthritis, unspecified site; G47.33 Obstructive sleep apnea (adult) (pediatric); Z91.041 Radiographic dye allergy status; Z79.4 Long term (current) use of insulin; Z79.899 Other long term (current) drug therapy; Z79.83 Long term (current) use of bisphosphonates; W18.30XA Fall on same level, unspecified, initial encounter; Y92.009 Unspecified place in unspecified non-institutional (private) residence as the place of occurrence of the external cause
CPT/HCPCS: 93005; 80053; 83735; 85025; 85610; 85730; 72170; 73590; 73562; 73610; 73630; 71046; 72125; 70450; 99285; J2270; 36415; 81003

== ENCOUNTER 2023-05-12 07:22 | Inpatient (IN) | payer MEDICARE, OTHER ==
--- NOTE | 2023-05-12 07:41 | ED ---
General Adult HPI - General Stated complaint: Sepsis Time Seen by Provider: 05/12/23 07:22 Source: patient, EMS, RN notes reviewed, old records reviewed Mode of arrival: EMS - History of Present Illness Initial comments: [id number] female with a history of multiple medical problems including diabetes and seizure disorder migraine headaches chronic pancreatitis sleep apnea hypertension among others who was transferred from [facility] this morning for further evaluation of suspected sepsis. Patient states she's had a headache behind her eyes which is typical of her migraine headaches which started about 3 days ago she's had nausea but decreased oral intake since that time she denied any fevers chills or sweats but was found upon arrival at [facility] this morning to have a elevated temperature of 103 per flavor room worker report. During the workup she had lab work was obtained with the most part was unremarkable except for pro calcitonin which was elevated. The white blood cell count was within normal limits. UA was within normal limits CAT scan of the chest and abdomen were performed which showed no apparent acute pathology. She was noted to develop some desaturation of her oxygen when sleep since she was placed on nasal cannula oxygen. She was transferred to this facility for higher level of care. Sepsis was suspected though no definitive etiology. She maintain her vital signs she was given 3 L of normal saline prior to arrival. The patient does state that her headache is from most part resolved she is has a slight amount of discomfort in the above-stated location. In addition no complaints of visual disturbances. The patient did receive IV antibiotics including Zithromax and Rocephin. Also noted her temperature did improve after the above treatment. - Related Data Home Medications Medication Instructions Recorded Confirmed Insulin Glargine [Lantus Vial] 40 units SQ HS 08/28/16 07/04/19 gemfibroziL [Lopid] 600 mg PO BID 08/28/16 07/04/19 metFORMIN HCL [Glucophage] 1,000 mg PO BID 08/28/16 07/04/19 Acetaminophen-Codeine 300-30mg 1 tab PO Q12H PRN 11/04/16 07/04/19 [Tylenol w/codeine #3] Ondansetron [Zofran] 4 mg PO Q8H PRN 11/04/16 07/04/19 Lacosamide [Vimpat] 200 mg PO BID 09/22/18 07/04/19 levETIRAcetam [Keppra] 1,000 mg PO BID 09/22/18 07/04/19 ALPRAZolam [Xanax] 0.25 mg PO HS PRN 07/04/19 07/04/19 Ertugliflozin Pidolate [Steglatro] 5 mg PO DAILY 07/04/19 07/04/19 Previous Rx's Medication Instructions Recorded Albuterol Inhaler [Ventolin Hfa 1 - 2 puff INHALATION RT-Q6H PRN 07/05/19 Inhaler] #1 inhaler cefUROXime axetiL [Ceftin] 500 mg PO BID 3 Days #6 tab 07/05/19 Pantoprazole [Protonix] 40 mg PO AC-BRKFST #28 tablet. 07/07/19 Sulfamethoxazole/Trimethoprim 1 each PO BID #20 tablet 06/20/20 [Bactrim DS 800-160 mg] HYDROcodone/APAP 5-325MG [[place] 1 tab PO Q6HR PRN 3 Days #12 tab 09/10/20 5-325] Allergies Allergy/AdvReac Type Severity Reaction Status Date / Time Iodinated Contrast Media Allergy Unknown Verified 06/19/20 22:19 [Iodinated Contrast Media - IV Dye] Review of Systems ROS Statement: Those systems with pertinent positive or pertinent negative responses have been documented in the HPI. ROS Other: All systems not noted in ROS Statement are negative. Past Medical History Past Medical History: Chest Pain / Angina, Diabetes Mellitus, Hyperlipidemia, Memory Impairment, Myocardial Infarction ([place]), Osteoarthritis (OA), Seizure Disorder, Sleep Apnea/CPAP/BIPAP Additional Past Medical History / Comment(s): Previous 2 seizures in 2017, familial hypertriglyceridemia, pancreatitis, IDDM type II, migraines, CPAP but not using, arthritis multiple joints, chronic low back, [place] 2007. Heart valve spasm Last Myocardial Infarction Date:: 2007 History of Any Multi-Drug Resistant Organisms: None Reported Past Surgical History: Back Surgery, Heart Catheterization, Orthopedic Surgery Additional Past Surgical History / Comment(s): Cardiac cath-normal, low back surgery, L ankle surgery for entrapped vessels, L knee arthroscopy. Past Anesthesia/Blood Transfusion Reactions: No Reported Reaction Past Psychological History: Anxiety, Depression Smoking Status: Current every day smoker Past Alcohol Use History: Rare Past Drug Use History: None Reported - Past Family History Father Family Medical History: Congestive Heart Failure (CHF) Additional Family Medical History / Comment(s): Father at the age of 59 yrs from CHF. Mother Family Medical History: Cancer, CVA/TIA, Myocardial Infarction ([place]) Additional Family Medical History / Comment(s): Mother has had CVAs and MIs with one [place] while in her late 30's. She had renal carcinoma Sister(s) Family Medical History: Cancer Additional Family Medical History / Comment(s): sister with cervical cancer, at the age 37 General Exam - General Exam Comments Initial Comments: This is a well-developed well-nourished awake alert oriented 4 female General appearance: alert, in no apparent distress Head exam: Present: atraumatic, normocephalic, normal inspection Eye exam: Present: normal appearance, PERRL, EOMI. Absent: scleral icterus, conjunctival injection, periorbital swelling ENT exam: Present: mucous membranes dry Neck exam: Present: normal inspection, full ROM, other (No stridor JVD or bruits). Absent: tenderness, meningismus, lymphadenopathy Respiratory exam: Present: normal lung sounds bilaterally. Absent: respiratory distress, wheezes, rales, rhonchi, stridor Cardiovascular Exam: Present: regular rate, normal rhythm, normal heart sounds. Absent: systolic murmur, diastolic murmur, rubs, gallop, clicks GI/Abdominal exam: Present: soft, normal bowel sounds. Absent: distended, tenderness, guarding, rebound, rigid, bruit, pulsatile mass Extremities exam: Present: normal inspection, full ROM, normal capillary refill. Absent: tenderness, pedal edema, joint swelling, calf tenderness Back exam: Present: normal inspection Neurological exam: Present: alert, oriented X3, CN II-XII intact Psychiatric exam: Present: normal affect, normal mood Skin exam: Present: warm, dry, intact, normal color. Absent: rash Course - Reevaluation(s) Reevaluation #1: 05/12/23 07:38 I did review the materials presented from [facility] Reevaluation #2: 05/12/23 07:53 The patient has abdominal pain which she states is consistent with her chronic pancreatitis she does state that she had no relief from IV Tylenol or IV Toradol previously. She has been able take Dilantin which she will get at this time. Additionally she was noted to become somewhat tachycardic EKG was performed. EKG showed sinus tachycardia of 108 IN interval 172 QRS duration 105 QT/QTC 331/435 (Exodeviation nonspecific T-wave configuration no acute processes Medical Decision Making - Medical Decision Making The patient presented from [facility] with a provisional diagnosis of sepsis he does have chronic pancreatitis history of migraine headaches he did receive IV fluids 3 L of normal saline as well as antipyretic medication she received IV Rocephin and Z azithromycin. Her lab work from most part was within normal limits except for a mildly elevated pro calcitonin on 2 different draws. Patient will be admitted to this facility for continued higher level of care. She was noted to be somewhat tachycardic EKG was done which was unremarkable for acute processes other than tachycardia. She was noted desaturate when taken off oxygen. This will be continued at this time. Patient will be admitted to Dr. Ko's service.Was pt. sent in by a medical professional or institution (, PA, BOAT GARNISHER, urgent care, hospital, or senior care...) When possible be specific @ -EMS providers upon arrival as well as charting from [facility] Did you speak to anyone other than the patient for history (EMS, parent, family, police, friend...)? What history was obtained from this source @ -EMS providers Did you review nursing and triage notes (agree or disagree)? Why? @ -I reviewed and agree with nursing and triage notes Were old charts reviewed (outside hosp., previous admission, EMS record, old EKG, old radiological studies, urgent care reports/EKG's, senior care records)? Report findings @ -[facility] old charts were reviewed Differential Diagnosis (chest pain, altered mental status, abdominal pain women, abdominal pain men, vaginal bleeding, weakness, fever, dyspnea, syncope, headache, dizziness, GI bleed, back pain, seizure, CVA, palpatations, mental health, musculoskeletal)? @ -Provisional diagnosis of sepsis, lactic acidosis EKG interpreted by me (3pts min.). @ -EKG performed in this facility showed sinus tachycardia of 108 IN interval 172 QRS duration 105 QT since QTC 371/435 borderline left exodeviation nonspecific T-wave configuration X-rays interpreted by me (1pt min.). @ -None done at this facility. Imaging computed from [facility] CT interpreted by me (1pt min.). @ -None done at the facility imaging from [facility] reviewed U/S interpreted by me (1pt. min.). @ -None done What testing was considered but not performed or refused? (CT, X-rays, U/S, labs)? Why? @ -None What meds were considered but not given or refused? Why? @ -None Did you discuss the management of the patient with other professionals (professionals i.e. , PA, BOAT GARNISHER, lab, RT, psych nurse, social work associate, practice lead, teacher, sales promotion officer, case preparer and liner)? Give summary @ -Dr. Ko Was smoking cessation discussed for >3mins.? @ -No Was critical care preformed (if so, how long)? @ -No Were there social determinants of health that impacted care today? How? (Homelessness, low income, unemployed, alcoholism, drug addiction, t ransportation, low edu. Level, literacy, decrease access to med. care, group home, rehab)? @ -No Was there de-escalation of care discussed even if they declined (Discuss DNR or withdrawal of care, Hospice)? DNR status @ -No What co-morbidities impacted this encounter? (DM, HTN, Smoking, COPD, CAD, Cancer, CVA, ARF, Chemo, Hep., AIDS, mental health diagnosis, sleep apnea, morbid obesity)? @ -Migraine headaches, sleep apnea, diabetes] Was patient admitted / discharged? Hospital course, mention meds given and route, prescriptions, significant lab abnormalities, going to OR and other pertinent info. @ -hospital course patient was admitted to this facility for further evaluation of elevated lactic acid was sepsis fever of unknown origin clinical evidence of dehydration additionally hypoxemia and hypoxemia Undiagnosed new problem with uncertain prognosis? @ -Lactic acidosis and elevated pro calcitonin Drug Therapy requiring intensive monitoring for toxicity (Heparin, Nitro, Insulin, Cardizem)? @ -No Were any procedures done? @ -No Diagnosis/symptom? @ -Sepsis, lactic acidosis, dehydration, hyperglycemia, migraine cephalgia, chronic pancreatitis Acute, or Chronic, or Acute on Chronic? @ -Acute on chronic Uncomplicated (without systemic symptoms) or Complicated (systemic symptoms)? @ -Complicated Side effects of treatment? @ -No Exacerbation, Progression, or Severe Exacerbation? @ -No Poses a threat to life or bodily function? How? (Chest pain, [place], [place], pneumonia, PE, COPD, DKA, ARF, appy, cholecystitis, CVA, Diverticulitis, Homicidal, Suicidal, threat to staff... and all critical care pts) @ -No Disposition Clinical Impression: Sepsis, Lactic acidosis, Migraine, Fever of unknown origin (FUO), Dehydration, Tachycardia Disposition: ADMITTED IP TO THIS [facility] Condition: Fair Referrals: Johnnie Voss MD [Primary Care Provider] - 1-2 days Decision Date: 05/12/23 Decision Time: 08:16
[2023-05-12] MEDS ORDERED: HYDROmorphone 1 MG/ML 1 ML SYRINGE IVP STA (07:51)
[2023-05-12] MEDS ORDERED: NALOXONE 0.4 MG/ML 1 ML VIAL IV PRN (08:17)
[2023-05-12] MEDS ORDERED: ACETAMINOPHEN TAB 325 MG TAB PO PRN (08:17)
[2023-05-12] MEDS ORDERED: ALBUTEROL NEBULIZED 2.5 MG/3 ML INHALATION PRN (08:19)
[2023-05-12] MEDS ORDERED: ALPRAZolam 0.25 MG TAB PO PRN (08:19)
[2023-05-12] MEDS ORDERED: ONDANSETRON 4 MG TAB PO PRN (08:19)
[2023-05-12] MEDS: SODIUM CHLORIDE 0.9% 1,000 ML IV SCH ×3 (08:35→23:23)
[2023-05-12] MEDS ORDERED: metFORMIN 500 MG TAB PO SCH (09:00)
[2023-05-12] MEDS ORDERED: PANTOPRAZOLE 40 MG/10 ML VIAL IV SCH (09:00)
[2023-05-12 09:17] LABS: Basophils % (A) 0 %; Eosinophils % (A) 1 %; HCT 41.8 % (34.0-46.0); Lymphocytes # (A) 0.4 k/uL (1.0-4.8); Lymphocytes % (A) 9 %; MCH 29.9 pg (25.0-35.0); MCHC 33.6 g/dL (31.0-37.0); MCV 89.1 fL (80.0-100.0); Monocytes # (A) 0.3 k/uL (0-1.0); Monocytes % (A) 7 %; Neutrophils # (A) 3.7 k/uL (1.3-7.7); Neutrophils % (A) 81 %; RBC 4.69 m/uL (3.80-5.40); RDW 13.6 % (11.5-15.5); WBC 4.5 k/uL (3.8-10.6)
[2023-05-12] MEDS: levETIRAcetam 500 MG TAB PO SCH ×2 (09:30→20:35)
[2023-05-12] MEDS: FENOFIBRATE 160 MG TAB PO SCH (09:30)
[2023-05-12] MEDS: ERTUGLIFLOZIN PIDOLATE 5 MG PO SCH (09:33)
[2023-05-12 10:09] LABS: RBC Morphology Normal
[2023-05-12 10:09] LABS: Glucose,Whole Blood 371 mg/dL (70-110)
[2023-05-12 10:10] LABS: Platelet Count 92 k/uL (150-450)
[2023-05-12] MEDS: LACOSAMIDE 50 MG TABLET PO SCH ×2 (10:21→20:35)
[2023-05-12 10:39] LABS: African American GFR (CKD) >90 (>60 ml/min/1.73 sqM); Anion Gap 8 mmol/L; Blood Urea Nitrogen 11 mg/dL (7-17); Calcium 7.8 mg/dL (8.4-10.2); Carbon Dioxide 22 mmol/L (22-30); Chloride 102 mmol/L (98-107); Glucose 364 mg/dL (74-99); Magnesium 1.6 mg/dL (1.6-2.3); Non-African American GFR(CKD) >90 (>60 ml/min/1.73 sqM); Potassium 4.2 mmol/L (3.5-5.1); Sodium 132 mmol/L (137-145)
[2023-05-12] MEDS ORDERED: DEXTROSE 50% SYRINGE 50 ML IVP PRN ×2 (11:28)
[2023-05-12] MEDS: MAGNESIUM SULFATE-D5W PMX 1 GM in DEXTROSE/WATER 1 100ML.BAG IVPB SCH ×2 (11:45→14:11)
[2023-05-12 11:47] LABS: Glucose,Whole Blood 332 mg/dL (70-110)
[2023-05-12] MEDS ORDERED: ONDANSETRON 4 MG/2 ML VIAL IVP SCH (12:00)
--- NOTE | 2023-05-12 13:23 | P.HPIM ---
History of Present Illness H&P Date: 05/12/23 This is a 47-year-old female with past medical history of diabetes mellitus, hyperlipidemia, seizure disorder, sleep apnea, migraines, heart catheterization that was normal, anxiety/depression, smoker, also history of diverticulitis and pancreatitis. Patient presents to [facility] for a 3 day history of abdominal pain and headache was found to be febrile on admission there. Patient had elevated pro-calcitonin and lactic acidosis. She had abdominal pelvis CT completed that was essentially normal , urinalysis not showing infection, patient was brought to [facility] for further evaluation and workup. Patient was found to be low grade fever 99 and tachycardic heart rate was in the 110s. White count is normal, lactic acid has normalized down to 2.0. Blood glucoses in the 300s. Patient continues to severe abdominal pain radiating 10 out of 10 and is having dry heaving and vomiting mostly bile. Epigastric region and right upper questionable tender to palpation. Patient states this pain feels different than what she has had previous episodes of pancreatitis and diverticulitis. We will repeat an abdominal x-ray and check an amylase lipase level. Sepsis work up in progress and antibiotics have been changed to Zosyn we will ask ID to see the patient. REVIEW OF SYSTEMS: CONSTITUTIONAL: Reports fever no malaise, no fatigue. HEENT: No recent visual problems or hearing problems. Denied any sore throat. CARDIOVASCULAR: No chest pain, orthopnea, PND, no palpitations, no syncope. PULMONARY: No shortness of breath, no cough, no hemoptysis. GASTROINTESTINAL: Reports abdominal pain, nausea and vomiting, no diarrhea. Vomiting bile. NEUROLOGICAL: No headaches, no weakness, no numbness. HEMATOLOGICAL: Denies any bleeding or petechiae. GENITOURINARY: Denies any burning micturition, frequency, or urgency. MUSCULOSKELETAL/RHEUMATOLOGICAL: Denies any joint pain, swelling, or any muscle pain. ENDOCRINE: Denies any polyuria or polydipsia. The rest of the 14-point review of systems is negative. PHYSICAL EXAMINATION: GENERAL: The patient is alert and oriented x3, distressed abdominal guarding. Well developed, well nourished. HEENT: Pupils are round and equally reacting to light. EOMI. No scleral icterus. No conjunctival pallor. Normocephalic, atraumatic. No pharyngeal erythema. No thyromegaly. CARDIOVASCULAR: S1 and S2 present. No murmurs, rubs, or gallops. PULMONARY: Chest is clear to auscultation, no wheezing or crackles. ABDOMEN: Soft, Epigastric and RUQ tenderness, nondistended, normoactive bowel sounds. No palpable organomegaly. MUSCULOSKELETAL: No joint swelling or deformity. EXTREMITIES: No cyanosis, clubbing, or pedal edema. NEUROLOGICAL: Gross neurological examination did not reveal any focal deficits. SKIN: No rashes. Assessment Acute abdominal pain with nausea and vomiting patient does have history of diverticulitis as well as pancreatitis Fever and sepsis Sinus tachycardia secondary to above Hyponatremia, hypovolemic due to the nausea and vomiting Diabetes mellitus type 2 with hyperglycemia patient is resumed on home dose of Levemir at bedtime and is on Accu-Cheks and sliding scale History of seizure disorder History of hyperlipidemia History of migraines History of sleep apnea and does not use a CPAP History of anxiety/depression Chronic nicotine use Obesity GI prophylaxis with IV Protonix DVT prophylaxis early ambulation Full code Plan Abdominal xray ordered Antibiotics have been changed to IV zosyn and blood cultures, urine culture are taken. Infectious disease has been placed on consultation for further evaluation and recommendations. Amylase, lipase ordered and follow up liver enzymes. If abdominal xray is negative for acute findings recommending for abdominal ultrasound RUQ Resume appropriate home medications Continue supportive care with antiemetics, pain management patient has been placed NPO and is receiving IV fluids normal saline at 130 ml/hr. Repeat labs in AM The impression and plan of care has been dictated by Rose Mary Kapadia, Nurse Practitioner as directed. Dr. Job MD I have performed a history and physical examination and medical decision making of this patient, discussed the same with the dictator, and agree with the dictators assessment and plan as written, documented as a scribe. Based on total visit time, I have performed more than 50% of this visit. Past Medical History Past Medical History: Chest Pain / Angina, Diabetes Mellitus, Hyperlipidemia, Memory Impairment, Myocardial Infarction ([place]), Osteoarthritis (OA), Seizure Disorder, Sleep Apnea/CPAP/BIPAP Additional Past Medical History / Comment(s): Previous 2 seizures in 2017, familial hypertriglyceridemia, pancreatitis, IDDM type II, migraines, CPAP but not using, arthritis multiple joints, chronic low back, [place] 2007. Heart valve spasm Last Myocardial Infarction Date:: 2007 History of Any Multi-Drug Resistant Organisms: None Reported Past Surgical History: Back Surgery, Heart Catheterization, Orthopedic Surgery Additional Past Surgical History / Comment(s): Cardiac cath-normal, low back surgery, L ankle surgery for entrapped vessels, L knee arthroscopy. Past Anesthesia/Blood Transfusion Reactions: No Reported Reaction Past Psychological History: Anxiety, Depression Smoking Status: Current every day smoker Past Alcohol Use History: Rare Past Drug Use History: None Reported - Past Family History Father Family Medical History: Congestive Heart Failure (CHF) Additional Family Medical History / Comment(s): Father at the age of 59 yrs from CHF. Mother Family Medical History: Cancer, CVA/TIA, Myocardial Infarction ([place]) Additional Family Medical History / Comment(s): Mother has had CVAs and MIs with one [place] while in her late 30's. She had renal carcinoma Sister(s) Family Medical History: Cancer Additional Family Medical History / Comment(s): sister with cervical cancer, at the age 37 Medications and Allergies Home Medications Medication Instructions Recorded Confirmed Type Insulin Glargine [Lantus Vial] 40 units SQ HS 08/28/16 07/04/19 History gemfibroziL [Lopid] 600 mg PO BID 08/28/16 07/04/19 History metFORMIN HCL [Glucophage] 1,000 mg PO BID 08/28/16 07/04/19 History Acetaminophen-Codeine 300-30mg 1 tab PO Q12H PRN 11/04/16 07/04/19 History [Tylenol w/codeine #3] Ondansetron [Zofran] 4 mg PO Q8H PRN 11/04/16 07/04/19 History Lacosamide [Vimpat] 200 mg PO BID 09/22/18 07/04/19 History levETIRAcetam [Keppra] 1,000 mg PO BID 09/22/18 07/04/19 History ALPRAZolam [Xanax] 0.25 mg PO HS PRN 07/04/19 07/04/19 History Ertugliflozin Pidolate [Steglatro] 5 mg PO DAILY 07/04/19 07/04/19 History Albuterol Inhaler [Ventolin Hfa 1 - 2 puff INHALATION RT-Q6H PRN 07/05/19 Rx Inhaler] #1 inhaler cefUROXime axetiL [Ceftin] 500 mg PO BID 3 Days #6 tab 07/05/19 Rx Pantoprazole [Protonix] 40 mg PO AC-BRKFST #28 tablet. 07/07/19 Rx Sulfamethoxazole/Trimethoprim 1 each PO BID #20 tablet 06/20/20 Rx [Bactrim DS 800-160 mg] HYDROcodone/APAP 5-325MG [[place] 1 tab PO Q6HR PRN 3 Days #12 tab 09/10/20 Rx 5-325] Allergies Allergy/AdvReac Type Severity Reaction Status Date / Time Iodinated Contrast Media Allergy Unknown Verified 05/12/23 07:54 [Iodinated Contrast Media - IV Dye] Physical Exam Vitals: Vital Signs Temp Pulse Resp BP Pulse Ox 05/12/23 09:38 99.1 F 110 H 18 136/74 97 05/12/23 08:12 108 H 18 128/75 96 05/12/23 07:50 99 F 112 H 18 144/77 95 Intake and Output 05/11/23 05/12/23 05/12/23 22:59 06:59 14:59 Other: Weight 110.223 kg Results CBC & Chem 7: 05/12/23 08:11 05/12/23 09:47 Labs: Abnormal Lab Results - Last 24 Hours (Table) 05/12/23 05/12/23 05/12/23 Range/Units 08:11 09:47 10:07 Plt Count 92 L (150-450) k/uL Lymphocytes # 0.4 L (1.0-4.8) k/uL Sodium 132 L (137-145) mmol/L Creatinine 0.40 L (0.52-1.04) mg/dL Glucose 364 H (74-99) mg/dL POC Glucose (mg/dL) 371 H (70-110) mg/dL Calcium 7.8 L (8.4-10.2) mg/dL 05/12/23 Range/Units 11:47 Plt Count (150-450) k/uL Lymphocytes # (1.0-4.8) k/uL Sodium (137-145) mmol/L Creatinine (0.52-1.04) mg/dL Glucose (74-99) mg/dL POC Glucose (mg/dL) 332 H (70-110) mg/dL Calcium (8.4-10.2) mg/dL Assessment and Plan Time with Patient: Greater than 30
[2023-05-12] MEDS: KETOROLAC 15 MG/ML 1 ML VIAL IVP PRN ×2 (13:34→20:35)
[2023-05-12] MEDS: INSULIN ASPART (NovoLOG) 100 UNIT/ML VIAL SQ SCH ×3 (13:35→20:54)
[2023-05-12 14:08] LABS: C Reactive Protein 7.5 mg/dL (<1.0)
--- NOTE | 2023-05-12 14:22 | XR ---
EXAMINATION TYPE: XR abdomen acute w cxr DATE OF EXAM: 05/12/2023 2:08 PM INDICATION: Patient age:Female; 47 years old; Reason for study: abdominal pain and vomiting; PHH. COMPARISON: Pelvic radiograph 08/03/2022 TECHNIQUE: Two radiographic views of the abdomen and an a chest radiograph were obtained. FINDINGS CHEST: Lungs/Pleura: No pleural effusion or pneumothorax. Bibasilar patchy airspace opacities. Mediastinum: Unremarkable. Vasculature: Normal. Heart: Normal in size. Musculoskeletal: The osseous structures are intact. Other findings: No significant. FINDINGS ABDOMEN: Bowel gas pattern: Normal without dilated loops of small or large bowel. Fecal material and gas are d emonstrated throughout the colon and rectum. Calcifications: Pelvic phleboliths redemonstrated.. 1 cm calculus in the region of the left kidney. Musculoskeletal: Normal. Other: No pneumoperitoneum.. IMPRESSION: 1. No radiographic evidence for acute abdominal process. 2. Basilar patchy airspace opacities favored to represent atelectasis versus less likely infiltrates. 3. Left renal calculus suggested measuring up to 1 cm.
[2023-05-12 16:38] LABS: Glucose,Whole Blood 347 mg/dL (70-110)
[2023-05-12] MEDS: PIPERACILLIN-TAZOBACTAM 3.375 GM in SODIUM CHLORIDE 0.9% 100 ML IVPB SCH ×2 (16:59→23:04)
[2023-05-12] MEDS: HYDROcodone/APAP 5-325MG 1 EACH TAB PO PRN ×2 (17:08→23:03)
[2023-05-12 20:20] LABS: Glucose,Whole Blood 336 mg/dL (70-110)
[2023-05-12] MEDS: INSULIN DETEMIR (LEVEMIR) 100 UNIT/ML SYR SQ SCH (20:36)
[2023-05-12] MEDS: PANTOPRAZOLE 40 MG/10 ML VIAL IVP SCH (20:36)
[2023-05-12] MEDS: ONDANSETRON 4 MG/2 ML VIAL IVP PRN (20:42)
--- NOTE | 2023-05-12 22:06 | P.CONS ---
History of Present Illness - Reason for Consult Consult date: 05/12/23 - History of Present Illness Patient is a 47-year old female with a past medical history significant for diabetes mellitus hyperlipidemia GA seizure disorder sleep apnea, initially presented to [facility] for evaluation of headache with the patient has been describing behind the left eye started the day of presentation to the hospital patient describes the pain to be sharp almost 10 out of 10 in severity without any radiation patient did have some photophobia associated with it denies any pain on movement of the eyeball though, patient also noticed to be febrile with a pressure 103 F, patient did have a CT angiogram of the chest as well as CT of the abdominal pelvis did not show any acute abnormality patient was subsequently transferred to [facility] for further evaluation patient apparently did have elevated procalcitonin at the other facility on presentation to this hospital patient did spike a fever of 103.7 F, patient was tachycardic did have a normal blood pressure and not hypo xic patient however did have a normal white count kidney function was normal CRP 7.5 AST ALT mildly elevated patient did have acute abdominal series basilar patchy airspace opacity favoring atelectasis versus likely infiltrate patient did receive Rocephin subsequently but has been switched over to Zosyn infectious disease was consulted for further management of antibiotic therapy Past Medical History Past Medical History: Chest Pain / Angina, Diabetes Mellitus, Hyperlipidemia, Memory Impairment, Myocardial Infarction (GA), Osteoarthritis (OA), Seizure D isorder, Sleep Apnea/CPAP/BIPAP Additional Past Medical History / Comment(s): Previous 2 seizures in 2017, familial hypertriglyceridemia, pancreatitis, IDDM type II, migraines, CPAP but not using, arthritis multiple joints, chronic low back, GA 2007. Heart valve spasm Last Myocardial Infarction Date:: 2007 History of Any Multi-Drug Resistant Organisms: None Reported Past Surgical History: Back Surgery, Heart Catheterization, Orthopedic Surgery Additional Past Surgical History / Comment(s): Cardiac cath-normal, low back surgery, L ankle surgery for entrapped vessels, L knee arthroscopy. Past Anesthesia/Blood Transfusion Reactions: No Reported Reaction Past Psychological History: Anxiety, Depression Additional Psychological History / Comment(s): Pt resides with 2 children, ages 19yrs and 22yrs. Pt is independent. Smoking Status: Former smoker Past Alcohol Use History: Rare Additional Past Alcohol Use History / Comment(s): Pt started smoking in 1989 and is a ppd smoker. Past Drug Use History: None Reported - Past Family History Father Family Medical History: Congestive Heart Failure (CHF) Additional Family Medical History / Comment(s): Father at the age of 59 yrs from CHF. Mother Family Medical History: Cancer, CVA/TIA, Myocardial Infarction (GA) Additional Family Medical History / Comment(s): Mother has had CVAs and MIs with one GA while in her late 30's. She had renal carcinoma Sister(s) Family Medical History: Cancer Additional Family Medical History / Comment(s): sister with cervical cancer, at the age 37 Medications and Allergies Home Medications Medication Instructions Recorded Confirmed Type Ondansetron [Zofran] 4 mg PO Q8H PRN 11/04/16 05/12/23 History Lacosamide [Vimpat] 200 mg PO BID 09/22/18 05/12/23 History Buprenorphine HCl/Naloxone HCl 1 film SL BID 05/12/23 05/12/23 History [Suboxone 2 mg-0.5 mg Sl Film] Dulaglutide [Trulicity] 0.75 mg SQ FR 05/12/23 05/12/23 History Fenofibrate [Lofibra] 160 mg PO HS 05/12/23 05/12/23 History Insulin Regular, Human [humulin R 30 unit SQ AC-BID@1200,1800 05/12/23 05/12/23 History U-500 Kwikpen] Insulin Regular, Human [humulin R 100 unit SQ AC-BRKFST 05/12/23 05/12/23 History U-500 Kwikpen] Lipase/Protease/Amylase [Perri Stephenson 72,000 cap PO DAILY PRN 05/12/23 05/12/23 History 36,000 Unit Capsule] Lipase/Protease/Amylase [Perri Stephenson 108,000 units PO TID-W/MEALS 05/12/23 05/12/23 History 36,000 Unit Capsule] Pantoprazole Sodium [Protonix] 20 mg PO DAILY 05/12/23 05/12/23 History Pioglitazone [Actos] 30 mg PO DAILY 05/12/23 05/12/23 History levETIRAcetam [Keppra] 1,000 mg PO BID 05/12/23 05/12/23 History Allergies Allergy/AdvReac Type Severity Reaction Status Date / Time Iodinated Contrast Media Allergy Swelling & Verified 05/12/23 14:55 [Iodinated Contrast Media - Itching IV Dye] all over Physical Exam Vitals: Vital Signs Temp Pulse Pulse Resp BP BP Pulse Ox 05/12/23 20:00 101.0 F H 111 H 18 143/71 99 05/12/23 16:57 99.8 F H 115 H 16 145/82 98 05/12/23 14:23 100.3 F H 05/12/23 11:30 103.7 F H 127 H 16 154/81 95 05/12/23 10:46 127 H 16 05/12/23 09:38 99.1 F 110 H 18 136/74 97 05/12/23 08:12 108 H 18 128/75 96 05/12/23 07:50 99 F 112 H 18 144/77 95 Intake and Output 05/12/23 05/12/23 05/12/23 06:59 14:59 22:59 Intake Total 0 Balance 0 Intake: Oral 0 Other: Weight 110.223 kg 110.223 kg Results CBC & Chem 7: 05/14/23 07:02 05/14/23 07:02 Labs: Abnormal Lab Results - Last 24 Hours (Table) 05/12/23 05/12/23 05/12/23 Range/Units 08:11 09:47 10:07 Plt Count 92 L (150-450) k/uL Lymphocytes # 0.4 L (1.0-4.8) k/uL Sodium 132 L (137-145) mmol/L Creatinine 0.40 L (0.52-1.04) mg/dL Glucose 364 H (74-99) mg/dL POC Glucose (mg/dL) 371 H (70-110) mg/dL Calcium 7.8 L (8.4-10.2) mg/dL AST (14-36) U/L ALT (4-34) U/L Lactate Dehydrogenase (120-246) U/L C-Reactive Protein (<1.0) mg/dL 05/12/23 05/12/23 05/12/23 Range/Units 11:47 13:32 16:37 Plt Count (150-450) k/uL Lymphocytes # (1.0-4.8) k/uL Sodium (137-145) mmol/L Creatinine (0.52-1.04) mg/dL Glucose (74-99) mg/dL POC Glucose (mg/dL) 332 H 347 H (70-110) mg/dL Calcium (8.4-10.2) mg/dL AST 67 H (14-36) U/L ALT 42 H (4-34) U/L Lactate Dehydrogenase 266 H (120-246) U/L C-Reactive Protein 7.5 H (<1.0) mg/dL 05/12/23 Range/Units 20:19 Plt Count (150-450) k/uL Lymphocytes # (1.0-4.8) k/uL Sodium (137-145) mmol/L Creatinine (0.52-1.04) mg/dL Glucose (74-99) mg/dL POC Glucose (mg/dL) 336 H (70-110) mg/dL Calcium (8.4-10.2) mg/dL AST (14-36) U/L ALT (4-34) U/L Lactate Dehydrogenase (120-246) U/L C-Reactive Protein (<1.0) mg/dL Assessment and Plan Plan: 1patient presented hospital with a fever and left periorbital headache along with some nausea but no vomiting patient did have extensive work-up at [facility] including CT angiogram of the chest CT abdominal pelvis that was reported negative for acute infection, patient do not have any neck rigidity and there was no evidence of any periorbital cellulitis patient did have a normal white count and a question of possible viral syndrome, patient also have elevated liver enzymes. 2we will check COVID-19 PCR, also check hepatitis panel CMV and EBV serology 3-continue with empiric Zosyn while waiting for the work-up to be completed We will follow on clinical condition and cultures to further adjust medication if needed Thank you for this consultation we will follow the patient along with you Dictation was produced using [employer] dictation software. please excuse any grammatical, word or spelling errors. Time with Patient: Greater than 30
[2023-05-13] MEDS: ONDANSETRON 4 MG/2 ML VIAL IVP PRN ×4 (02:34→23:21)
[2023-05-13] MEDS: KETOROLAC 15 MG/ML 1 ML VIAL IVP PRN ×4 (02:34→23:20)
[2023-05-13] MEDS: HYDROcodone/APAP 5-325MG 1 EACH TAB PO PRN ×2 (04:56→20:06)
[2023-05-13 06:06] LABS: Glucose,Whole Blood 300 mg/dL (70-110)
[2023-05-13] MEDS: INSULIN ASPART (NovoLOG) 100 UNIT/ML VIAL SQ SCH ×4 (07:49→20:18)
[2023-05-13] MEDS: SODIUM CHLORIDE 0.9% 1,000 ML IV SCH ×2 (07:50→18:31)
[2023-05-13] MEDS: ERTUGLIFLOZIN PIDOLATE 5 MG PO SCH (09:00)
[2023-05-13] MEDS: PANTOPRAZOLE 40 MG/10 ML VIAL IVP SCH ×2 (09:04→20:05)
[2023-05-13] MEDS: FENOFIBRATE 160 MG TAB PO SCH (09:06)
[2023-05-13] MEDS: levETIRAcetam 500 MG TAB PO SCH ×2 (09:07→20:06)
[2023-05-13] MEDS: LACOSAMIDE 50 MG TABLET PO SCH ×2 (09:07→20:06)
[2023-05-13] MEDS: PIPERACILLIN-TAZOBACTAM 3.375 GM in SODIUM CHLORIDE 0.9% 100 ML IVPB SCH ×3 (09:18→23:21)
[2023-05-13 09:41] LABS: Appearance,Urine Clear (Clear); Bilirubin,Urine Negative (Negative); Blood,Urine Negative (Negative); Color,Urine Yellow; Glucose,Urine (UA) 4+ (Negative); Ketones,Urine 1+ (Negative); Leukocyte Esterase,Urine Negative (Negative); Nitrite,Urine Negative (Negative); Protein,Urine 1+ (Negative); Urobilinogen,Urine <0.2 mg/dL (<2.0)
[2023-05-13 09:42] LABS: RBC,Urine 0 /hpf (0-5); Squamous Epithelial Cell,Urine 2 /hpf (0-4)
[2023-05-13 09:43] LABS: Specific Gravity,Urine >1.030 (1.001-1.035)
[2023-05-13 09:44] LABS: WBC,Urine 2 /hpf (0-5)
[2023-05-13] MEDS ORDERED: IOPAMIDOL CONTRAST (ORAL USE) VIAL PO PRN (11:48)
[2023-05-13 11:50] LABS: Glucose,Whole Blood 281 mg/dL (70-110)
[2023-05-13 12:17] LABS: ALT 64 U/L (4-34); AST 111 U/L (14-36); African American GFR (CKD) >90 (>60 ml/min/1.73 sqM); Albumin 3.3 g/dL (3.5-5.0); Alkaline Phosphatase 81 U/L (38-126); Anion Gap 6 mmol/L; Blood Urea Nitrogen 7 mg/dL (7-17); Calcium 7.9 mg/dL (8.4-10.2); Carbon Dioxide 27 mmol/L (22-30); Chloride 101 mmol/L (98-107); Glucose 260 mg/dL (74-99); Magnesium 2.4 mg/dL (1.6-2.3); Non-African American GFR(CKD) >90 (>60 ml/min/1.73 sqM); Potassium 4.2 mmol/L (3.5-5.1); Sodium 134 mmol/L (137-145); Total Bilirubin 0.6 mg/dL (0.2-1.3); Total Protein 6.2 g/dL (6.3-8.2)
[2023-05-13 12:31] LABS: Basophils % (A) 0 %; Eosinophils # (A) 0.1 k/uL (0-0.7); Eosinophils % (A) 1 %; HCT 33.1 % (34.0-46.0); HGB 11.5 gm/dL (11.4-16.0); Lymphocytes # (A) 0.6 k/uL (1.0-4.8); Lymphocytes % (A) 15 %; MCH 30.7 pg (25.0-35.0); MCHC 34.9 g/dL (31.0-37.0); MCV 88.2 fL (80.0-100.0); Mean Platelet Volume 8.7; Monocytes # (A) 0.3 k/uL (0-1.0); Monocytes % (A) 7 %; Neutrophils # (A) 3.1 k/uL (1.3-7.7); Neutrophils % (A) 75 %; RBC 3.75 m/uL (3.80-5.40); RDW 13.3 % (11.5-15.5); WBC 4.1 k/uL (3.8-10.6)
[2023-05-13 12:33] LABS: Platelet Count 87 k/uL (150-450)
--- NOTE | 2023-05-13 13:03 | P.PN ---
Subjective Progress Note Date: 05/13/23 This is a 47-year-old female with past medical history of diabetes mellitus, hyperlipidemia, seizure disorder, sleep apnea, migraines, heart catheterization that was normal, anxiety/depression, smoker, also history of diverticulitis and pancreatitis. Patient presents to [facility] for a 3 day history of abdominal pain and headache was found to be febrile on admission there. Patient had elevated pro-calcitonin and lactic acidosis. She had abdominal pelvis CT completed that was essentially normal , urinalysis not showing infection, patient was brought to [facility] for further evaluation and workup. Patient was found to be low grade fever 99 and tachycardic heart rate was in the 110s. White count is normal, lactic acid has normalized down to 2.0. Blood glucoses in the 300s. Patient continues to severe abdominal pain radiating 10 out of 10 and is having dry heaving and vomiting mostly bile. Epigastric region and right upper questionable tender to palpation. Patient states this pain feels different than what she has had previous episodes of pancreatitis and diverticulitis. We will repeat an abdominal x-ray and check an amylase lipase level. Sepsis work up in progress and antibiotics have been changed to Zosyn we will ask ID to see the patient. 05/13/2023 Patient is evaluated today resting in bed continues to report fever chills and cold sweats. She does have chronic abdominal pain since the removal of her gallbladder at although she has RUQ abdominal tenderness on palpation this is chronic for her. No BM 4 days having some nausea no episodes of emesis today wou ld like to try clear liquid diet this will be added for. Chart from [facility] is reviewed patient had a negative viral panel including Covid which was negative and strep which was negative. Her workup here consists of an elevated pro- calcitonin level of 0.9 to her AST and ALT are elevated at 111 and 64. Her total bili is normal at 0.6. Sodium is 134. Inflammatory markers are elevated with LDH of 266 and a CRP of 7.5. urinalysis is unremarkable. Patient did have abdominal acute series which is showing no radiographic evidence for acute abdominal process there is basilar patchy airspace opacities representing atelectasis and less likely infiltrates there is a left renal calculus suggested measuring up to 1 cm. Review of Systems Constitutional: Reports fevere,malaise and chills Cardio vascular: denied any chest pain, palpitations Gastrointestinal: Reports nausea, no emesis or diarrhea overnight Pulmonary: Denied any shortness of breath cough Neurologic denied any new focal deficits All inpatient medications were reviewed and appropriate changes in these medications as dictated in the interval history and assessment and plan. PHYSICAL EXAMINATION: GENERAL: The patient is alert and oriented x3, distressed abdominal guarding. Well developed, well nourished. HEENT: Pupils are round and equally reacting to light. EOMI. No scleral icterus. No conjunctival pallor. Normocephalic, atraumatic. No pharyngeal erythema. No thyromegaly. CARDIOVASCULAR: S1 and S2 present. No murmurs, rubs, or gallops. PULMONARY: Chest is clear to auscultation, no wheezing or crackles. ABDOMEN: Soft, Epigastric and RUQ tenderness, nondistended, normoactive bowel sounds. No palpable organomegaly. MUSCULOSKELETAL: No joint swelling or deformity. EXTREMITIES: No cyanosis, clubbing, or pedal edema. NEUROLOGICAL: Gross neurological examination did not reveal any focal deficits. SKIN: No rashes. Assessment Acute abdominal pain with nausea and vomiting patient does have history of diverticulitis as well as pancreatitis Fever and sepsis unknown source of infection procalcitonin is elevated patient remains on empiric antibiotics and ID following. Sinus tachycardia secondary to above Hyponatremia, hypovolemic due to the nausea and vomiting improved Diabetes mellitus type 2 with hyperglycemia patient is resumed on home dose of Levemir at bedtime and is on Accu-Cheks and sliding scale History of seizure disorder History of hyperlipidemia History of migraines History of sleep apnea and does not use a CPAP History of anxiety/depression Chronic nicotine use Obesity GI prophylaxis with IV Protonix DVT prophylaxis early ambulation Full code Plan Antibiotics have been changed to IV zosyn and blood cultures are pending patient is recommended for abdominal pelvis CT with contrast Continue supportive care with antiemetics, pain management. Fluids decreased is normal saline at 75 mL per hour patient is upgraded to a clear liquid diet Repeat labs in AM The impression and plan of care has been dictated by Rose Mary Kapadia Nurse Practitioner as directed. Dr. Job MD I have performed a history and physical examination and medical decision making of this patient, discussed the same with the dictator, and agree with the dictators assessment and plan as written, documented as a scribe. Based on total visit time, I have performed more than 50% of this visit. Objective - Vital Signs Vital signs: Vital Signs Temp 98.9 F 05/13/23 08:50 Pulse 105 H 05/13/23 08:50 Resp 18 05/13/23 08:50 BP 142/78 05/13/23 08:50 Pulse Ox 99 05/13/23 08:50 FiO2 Intake & Output 05/12/23 05/13/23 05/13/23 18:59 06:59 18:59 Intake Total 0 Balance 0 Weight 110.223 kg 109.3 kg Intake: Oral 0 Other: # Voids 1 1 - Labs CBC & Chem 7: 05/13/23 10:51 05/13/23 10:51 Labs: Abnormal Lab Results - Last 24 Hours (Table) 05/12/23 05/12/23 05/12/23 Range/Units 13:32 13:38 16:37 RBC (3.80-5.40) m/uL Hct (34.0-46.0) % Plt Count (150-450) k/uL Lymphocytes # (1.0-4.8) k/uL Sodium (137-145) mmol/L Creatinine (0.52-1.04) mg/dL Glucose (74-99) mg/dL POC Glucose (mg/dL) 347 H (70-110) mg/dL Calcium (8.4-10.2) mg/dL Magnesium (1.6-2.3) mg/dL AST 67 H (14-36) U/L ALT 42 H (4-34) U/L Lactate Dehydrogenase 266 H (120-246) U/L C-Reactive Protein 7.5 H (<1.0) mg/dL Total Protein (6.3-8.2) g/dL Albumin (3.5-5.0) g/dL Procalcitonin 0.92 H (0.02-0.09) ng/mL 05/12/23 05/13/23 05/13/23 Range/Units 20:19 06:05 10:51 RBC 3.75 L (3.80-5.40) m/uL Hct 33.1 L (34.0-46.0) % Plt Count 87 L (150-450) k/uL Lymphocytes # 0.6 L (1.0-4.8) k/uL Sodium (137-145) mmol/L Creatinine (0.52-1.04) mg/dL Glucose (74-99) mg/dL POC Glucose (mg/dL) 336 H 300 H (70-110) mg/dL Calcium (8.4-10.2) mg/dL Magnesium (1.6-2.3) mg/dL AST (14-36) U/L ALT (4-34) U/L Lactate Dehydrogenase (120-246) U/L C-Reactive Protein (<1.0) mg/dL Total Protein (6.3-8.2) g/dL Albumin (3.5-5.0) g/dL Procalcitonin (0.02-0.09) ng/mL 05/13/23 05/13/23 Range/Units 10:51 11:48 RBC (3.80-5.40) m/uL Hct (34.0-46.0) % Plt Count (150-450) k/uL Lymphocytes # (1.0-4.8) k/uL Sodium 134 L (137-145) mmol/L Creatinine 0.39 L (0.52-1.04) mg/dL Glucose 260 H (74-99) mg/dL POC Glucose (mg/dL) 281 H (70-110) mg/dL Calcium 7.9 L (8.4-10.2) mg/dL Magnesium 2.4 H (1.6-2.3) mg/dL AST 111 H (14-36) U/L ALT 64 H (4-34) U/L Lactate Dehydrogenase (120-246) U/L C-Reactive Protein (<1.0) mg/dL Total Protein 6.2 L (6.3-8.2) g/dL Albumin 3.3 L (3.5-5.0) g/dL Procalcitonin (0.02-0.09) ng/mL Assessment and Plan Time with Patient: Less than 30
[2023-05-13] MEDS: BARIUM SULFATE 450 ML ORAL.SUSP BOTTLE PO PRN ×2 (14:17→17:16)
[2023-05-13 16:44] LABS: Hepatitis A Antibody IgM Nonreactive; Hepatitis B Core IgM Nonreactive; Hepatitis B Surface Antigen Nonreactive; Hepatitis C IgG Antibody Nonreactive
[2023-05-13 16:49] LABS: Glucose,Whole Blood 286 mg/dL (70-110)
[2023-05-13 17:41] LABS: EBV-EA (IgG) <0.2 AI; EBV-EBNA(IgG) >8.0; EBV-VCA (IgG) 7.2 AI; EBV-VCA (IgM) <0.2 AI
[2023-05-13 20:14] LABS: Glucose,Whole Blood 278 mg/dL (70-110)
[2023-05-13] MEDS: INSULIN DETEMIR (LEVEMIR) 100 UNIT/ML SYR SQ SCH (20:18)
--- NOTE | 2023-05-13 20:30 | CT ---
EXAMINATION TYPE: CT abdomen pelvis wo con DATE OF EXAM: 05/13/2023 COMPARISON: 07/06/2019 40 HISTORY: 47-year-old female fever and abdominal pain CT DLP: 1549.4 mGycm. Automated exposure control for dose reduction was used. TECHNIQUE: Contiguous axial scanning of the abdomen and pelvis without IV contrast. Coronal and sagit marge reconstructions performed. FINDINGS: Heart is upper limits of normal in size without pericardial effusion. Some groundglass and reticular change in the lower lungs similar to slightly increased from 2019. There may be some underlying fibro sis. Tiny hiatal hernia. Liver enlarged at 29.3 cm with severe diminished attenuation of the hepatic parenchyma. Gallbladder s urgically absent. Right adrenal gland and right kidney show no gross abnormality. Punctate 2 mm nonobstructive left thanh al calculus. The junction of the pancreatic tail with the posterior gastric fundus and the splenic hilum is not we ll delineated due to the lack of IV contrast. Overall appearance remains similar compared to 9. In addition, there is a cystic structure that shows thin peripheral calcification at the inferior splenic hilum measuring 3.4 cm. This abuts the tail of the pancreas. Previously measured 3.6 cm back in 2019. A thrombosed splenic artery aneurysm and a pseudocyst are both differential considerations. No dilated small bowel, free fluid, or free air. No mesenteric or retroperitoneal lymphadenopathy. Mi ld stool burden. Mild left-sided colonic diverticulosis. Mildly redundant sigmoid colon. No pericolic inflammatory change. There is some mural thickening along the right lateral wall of the cecum and lower ascending colon th at could represent adherent stool material. Mild to moderate atherosclerotic calcifications infrarenal abdominal aorta and iliac arteries. Bladder is nondistended. Pelvic phleboliths. Uterus is anteverted. There is a 1.9 cm subserosal brad l fibroid, sagittal image 77. Both ovaries are visualized. No abnormal fluid collection in the pelvis or pelvic lymphadenopathy. Bones: Moderate degenerative disc disease L5-S1. Facet arthropathy lower lumbar spine. IMPRESSION: 1. Some groundglass and reticular changes in the lower lungs is similar to slightly increased from 2 019. Probably reflecting underlying fibrosis. 2. Marked cardiomegaly with severe hepatic steatosis. Correlate with LFTs, liver protocol, and patie nt risk factors. Appropriate clinical follow-up and management is advised. 3. Poor distinction between the pancreatic tail, posterior gastric fundus, and splenic hilum. The ap pearance is similar compared to 07/06/2019. 4. There is also a 3.4 cm cystic structure here which measured 3.6 cm back in 2019. Either a thrombo sed splenic artery aneurysm or a pancreatic pseudocyst are the differential considerations. 5. Some mural thickening along the right lateral wall of the cecum and lower ascending colon could r epresent adherent stool material. Correlate with direct visualization if routine screening colonoscop y has not started. 6. Punctate 2 mm nonobstructive left renal calculus.
[2023-05-14] MEDS: ONDANSETRON 4 MG/2 ML VIAL IVP PRN ×2 (04:44→11:03)
[2023-05-14] MEDS: KETOROLAC 15 MG/ML 1 ML VIAL IVP PRN ×2 (04:44→11:03)
[2023-05-14] MEDS: SODIUM CHLORIDE 0.9% 1,000 ML IV SCH ×2 (05:26→17:03)
[2023-05-14 06:07] LABS: Glucose,Whole Blood 240 mg/dL (70-110)
[2023-05-14] MEDS: INSULIN ASPART (NovoLOG) 100 UNIT/ML VIAL SQ SCH ×5 (06:10→21:21)
[2023-05-14 08:00] LABS: Basophils % (A) 0 %; Eosinophils % (A) 1 %; HCT 32.5 % (34.0-46.0); HGB 11.2 gm/dL (11.4-16.0); Lymphocytes # (A) 0.7 k/uL (1.0-4.8); Lymphocytes % (A) 17 %; MCH 30.4 pg (25.0-35.0); MCHC 34.4 g/dL (31.0-37.0); MCV 88.5 fL (80.0-100.0); Mean Platelet Volume 8.6; Monocytes # (A) 0.2 k/uL (0-1.0); Monocytes % (A) 6 %; Neutrophils # (A) 3.1 k/uL (1.3-7.7); Neutrophils % (A) 75 %; RBC 3.67 m/uL (3.80-5.40); RDW 13.4 % (11.5-15.5); WBC 4.1 k/uL (3.8-10.6)
[2023-05-14 08:05] LABS: Platelet Count 93 k/uL (150-450)
[2023-05-14 08:10] LABS: African American GFR (CKD) >90 (>60 ml/min/1.73 sqM); Anion Gap 3 mmol/L; Blood Urea Nitrogen 10 mg/dL (7-17); Calcium 7.8 mg/dL (8.4-10.2); Carbon Dioxide 29 mmol/L (22-30); Chloride 103 mmol/L (98-107); Glucose 218 mg/dL (74-99); Non-African American GFR(CKD) >90 (>60 ml/min/1.73 sqM); Potassium 3.9 mmol/L (3.5-5.1); Sodium 135 mmol/L (137-145)
[2023-05-14] MEDS: ERTUGLIFLOZIN PIDOLATE 5 MG PO SCH (08:42)
[2023-05-14] MEDS: PIPERACILLIN-TAZOBACTAM 3.375 GM in SODIUM CHLORIDE 0.9% 100 ML IVPB SCH ×3 (08:47→23:32)
[2023-05-14] MEDS: HYDROcodone/APAP 5-325MG 1 EACH TAB PO PRN (08:48)
[2023-05-14] MEDS: levETIRAcetam 500 MG TAB PO SCH ×2 (08:48→21:20)
[2023-05-14] MEDS: PANTOPRAZOLE 40 MG/10 ML VIAL IVP SCH ×2 (08:48→21:24)
[2023-05-14] MEDS: LACOSAMIDE 50 MG TABLET PO SCH ×2 (08:48→21:21)
[2023-05-14] MEDS: FENOFIBRATE 160 MG TAB PO SCH (08:49)
[2023-05-14 11:34] LABS: Glucose,Whole Blood 230 mg/dL (70-110)
[2023-05-14] MEDS ORDERED: LIPASE 20,000/PROTEASE 63,000/AMYLASE 84,000 PO PRN (12:51)
[2023-05-14] MEDS ORDERED: NON FORMULARY DRUG (Levetiracetam [Keppra] 1,000 MG Tablet) PO SCH (13:00)
[2023-05-14] MEDS ORDERED: PATIENT'S OWN (Buprenorphine Hcl/Naloxone Hcl [Suboxone 2 Mg-0.5 Mg Sl Film] 1 EACH F SUBLINGUAL SCH (13:00)
[2023-05-14 14:06] VITALS: BMI 36.6
--- NOTE | 2023-05-14 14:54 | P.PN ---
Subjective Progress Note Date: 05/13/23 Principal diagnosis: Fever, possible pneumonia versus abdominal source Patient is a 47-year old female with a past medical history significant for diabetes mellitus hyperlipidemia [place] seizure disorder sleep apnea, initially presented to [facility] for evaluation of headache, patient did have a negative CT of the chest abdomen and pelvis subsequent the patient has been transferred to us for further workup. On today's evaluation that is 05/13/2023, patient did have overall resolution of the fever patient left periorbital area has improved is no swelling or redness: Nausea patient is breathing comfortably on the 2 L nasal cannula oxygen. Complaining of more abdominal pain and denies having any diarrhea or urinary symptoms Patient did have a white count of 4.1, creatinine 0.39, pro-calcitonin 0.92, we did ask for Covid 19 PCR and that has not been collected Objective - Vital Signs Vital signs: Vital Signs Temp 98.9 F 05/13/23 04:00 Pulse 104 H 05/13/23 04:00 Resp 18 05/13/23 04:00 BP 132/75 05/13/23 04:00 Pulse Ox 97 05/13/23 04:00 FiO2 Intake & Output 05/12/23 05/13/23 05/13/23 18:59 06:59 18:59 Intake Total 0 Balance 0 Weight 110.223 kg 109.3 kg Intake: Oral 0 Other: # Voids 1 1 - Exam GENERAL DESCRIPTION: A middle-aged female lying in bed in no distress RESPIRATORY SYSTEM: Unlabored breathing , decreased breath sounds at bases HEART: S1 S2 regular rate and rhythm , ABDOMEN: Soft , mild distention and tenderness EXTREMITIES: No edema feet - Labs CBC & Chem 7: 05/14/23 07:02 05/14/23 07:02 Labs: Abnormal Lab Results - Last 24 Hours (Table) 05/12/23 05/12/23 05/12/23 Range/Units 08:11 09:47 10:07 Plt Count 92 L (150-450) k/uL Lymphocytes # 0.4 L (1.0-4.8) k/uL Sodium 132 L (137-145) mmol/L Creatinine 0.40 L (0.52-1.04) mg/dL Glucose 364 H (74-99) mg/dL POC Glucose (mg/dL) 371 H (70-110) mg/dL Calcium 7.8 L (8.4-10.2) mg/dL AST (14-36) U/L ALT (4-34) U/L Lactate Dehydrogenase (120-246) U/L C-Reactive Protein (<1.0) mg/dL Procalcitonin (0.02-0.09) ng/mL 05/12/23 05/12/23 05/12/23 Range/Units 11:47 13:32 13:38 Plt Count (150-450) k/uL Lymphocytes # (1.0-4.8) k/uL Sodium (137-145) mmol/L Creatinine (0.52-1.04) mg/dL Glucose (74-99) mg/dL POC Glucose (mg/dL) 332 H (70-110) mg/dL Calcium (8.4-10.2) mg/dL AST 67 H (14-36) U/L ALT 42 H (4-34) U/L Lactate Dehydrogenase 266 H (120-246) U/L C-Reactive Protein 7.5 H (<1.0) mg/dL Procalcitonin 0.92 H (0.02-0.09) ng/mL 05/12/23 05/12/23 05/13/23 Range/Units 16:37 20:19 06:05 Plt Count (150-450) k/uL Lymphocytes # (1.0-4.8) k/uL Sodium (137-145) mmol/L Creatinine (0.52-1.04) mg/dL Glucose (74-99) mg/dL POC Glucose (mg/dL) 347 H 336 H 300 H (70-110) mg/dL Calcium (8.4-10.2) mg/dL AST (14-36) U/L ALT (4-34) U/L Lactate Dehydrogenase (120-246) U/L C-Reactive Protein (<1.0) mg/dL Procalcitonin (0.02-0.09) ng/mL Assessment and Plan (1) Fever Current Visit: Yes Status: Acute Code(s): R50.9 - FEVER, UNSPECIFIED SNOMED Code(s): 786440754 Plan: 1patient presented hospital with a fever and left periorbital headache along with some nausea but no vomiting patient did have extensive work-up at [facility] including CT angiogram of the chest CT abdominal pelvis that was reported negative for acute infection, patient do not have any neck rigidity and there was no evidence of any periorbital cellulitis patient did have a normal white count and a question of possible viral syndrome, patient also have elevated liver enzymes. 2 COVID-19 PCR request for lab collected, the patient hepatitis panel CMV came back negative and EBV serology not suggestive of acute infection 3-patient fever resolved with Zosyn patient be continued however we'll obtain a CT of abdominal pelvis with contrast to rule out intra-abdominal pathology Dictation was produced using [employer] dictation software. please excuse any grammatical, word or spelling errors. Time with Patient: Less than 30
--- NOTE | 2023-05-14 14:57 | P.PN ---
Subjective Progress Note Date: 05/14/23 Principal diagnosis: Fever, possible pneumonia versus abdominal source Patient is a 47-year old female with a past medical history significant for diabetes mellitus hyperlipidemia [place] seizure disorder sleep apnea, initially presented to [facility] for evaluation of headache, patient did have a negative CT of the chest abdomen and pelvis subsequent the patient has been transferred to us for further workup. On today's evaluation that is 05/14/2023 patient remains to be afebrile, the patient is currently breathing comfortably on room air. Denies having any chest pain occasional cough , denies any worsening abdominal pain no nausea or vomiting has been complaining of multiple loose stool this morning Patient did have a white count of 4.1 as of 05/14/2023, creatinine 0.39, pro- calcitonin 0.92, we did ask for Covid 19 PCR and that has not been collected, h epatitis panel is negative CMV serology negative EBV IgG positive IgM negative, CT of abdominal pelvis tissue some ground glass and reticular changes lower lungs mild cardiomegaly and question of possible thrombosed splenic artery versus a necrotic pseudocyst mural thickening of the right lateral wall of the cecum and ascending colon Objective - Vital Signs Vital signs: Vital Signs Temp 98.4 F 05/14/23 08:00 Pulse 86 05/14/23 08:00 Resp 18 05/14/23 08:00 BP 143/76 05/14/23 08:00 Pulse Ox 92 L 05/14/23 08:00 FiO2 Intake & Output 05/13/23 05/14/23 05/14/23 18:59 06:59 18:59 Intake Total 700 Output Total 700 150 Balance 0 -150 Intake: Intake, IV Titration 700 Amount Piperacillin-Tazobactam 3 100 .375 gm In Sodium Chloride 0.9% 100 ml @ 25 mls/hr IVPB Q8HR [facility] Rx# :[id number] Sodium Chloride 0.9% 1, 600 000 ml @ 75 mls/hr IV . [id number] I[facility]LLA Rx#:[id number] Output: Urine 700 150 Other: # Voids 1 1 - Exam GENERAL DESCRIPTION: A middle-aged female lying in bed in no distress RESPIRATORY SYSTEM: Unlabored breathing , decreased breath sounds at bases HEART: S1 S2 regular rate and rhythm , ABDOMEN: Soft , mild distention and tenderness EXTREMITIES: No edema feet - Labs CBC & Chem 7: 05/16/23 07:23 05/16/23 07:23 Labs: Abnormal Lab Results - Last 24 Hours (Table) 05/13/23 05/13/23 05/13/23 Range/Units 10:51 10:51 10:51 RBC 3.75 L (3.80-5.40) m/uL Hgb (11.4-16.0) gm/dL Hct 33.1 L (34.0-46.0) % Plt Count 87 L (150-450) k/uL Lymphocytes # 0.6 L (1.0-4.8) k/uL Sodium 134 L (137-145) mmol/L Creatinine 0.39 L (0.52-1.04) mg/dL Glucose 260 H (74-99) mg/dL POC Glucose (mg/dL) (70-110) mg/dL Hemoglobin A1c 10.1 H (<=6.0) % Calcium 7.9 L (8.4-10.2) mg/dL Magnesium 2.4 H (1.6-2.3) mg/dL AST 111 H (14-36) U/L ALT 64 H (4-34) U/L Total Protein 6.2 L (6.3-8.2) g/dL Albumin 3.3 L (3.5-5.0) g/dL EBV Capsid Ag IgG Intrp (Negative) EBV Nuc Ag IgG Interp (Negative) 05/13/23 05/13/23 05/13/23 Range/Units 10:51 11:48 16:47 RBC (3.80-5.40) m/uL Hgb (11.4-16.0) gm/dL Hct (34.0-46.0) % Plt Count (150-450) k/uL Lymphocytes # (1.0-4.8) k/uL Sodium (137-145) mmol/L Creatinine (0.52-1.04) mg/dL Glucose (74-99) mg/dL POC Glucose (mg/dL) 281 H 286 H (70-110) mg/dL Hemoglobin A1c (<=6.0) % Calcium (8.4-10.2) mg/dL Magnesium (1.6-2.3) mg/dL AST (14-36) U/L ALT (4-34) U/L Total Protein (6.3-8.2) g/dL Albumin (3.5-5.0) g/dL EBV Capsid Ag IgG Intrp Positive A (Negative) EBV Nuc Ag IgG Interp Positive A (Negative) 05/13/23 05/14/23 05/14/23 Range/Units 20:13 06:06 07:02 RBC 3.67 L (3.80-5.40) m/uL Hgb 11.2 L (11.4-16.0) gm/dL Hct 32.5 L (34.0-46.0) % Plt Count 93 L (150-450) k/uL Lymphocytes # 0.7 L (1.0-4.8) k/uL Sodium (137-145) mmol/L Creatinine (0.52-1.04) mg/dL Glucose (74-99) mg/dL POC Glucose (mg/dL) 278 H 240 H (70-110) mg/dL Hemoglobin A1c (<=6.0) % Calcium (8.4-10.2) mg/dL Magnesium (1.6-2.3) mg/dL AST (14-36) U/L ALT (4-34) U/L Total Protein (6.3-8.2) g/dL Albumin (3.5-5.0) g/dL EBV Capsid Ag IgG Intrp (Negative) EBV Nuc Ag IgG Interp (Negative) 05/14/23 05/14/23 Range/Units 07:02 11:33 RBC (3.80-5.40) m/uL Hgb (11.4-16.0) gm/dL Hct (34.0-46.0) % Plt Count (150-450) k/uL Lymphocytes # (1.0-4.8) k/uL Sodium 135 L (137-145) mmol/L Creatinine 0.39 L (0.52-1.04) mg/dL Glucose 218 H (74-99) mg/dL POC Glucose (mg/dL) 230 H (70-110) mg/dL Hemoglobin A1c (<=6.0) % Calcium 7.8 L (8.4-10.2) mg/dL Magnesium (1.6-2.3) mg/dL AST (14-36) U/L ALT (4-34) U/L Total Protein (6.3-8.2) g/dL Albumin (3.5-5.0) g/dL EBV Capsid Ag IgG Intrp (Negative) EBV Nuc Ag IgG Interp (Negative) Microbiology - Last 24 Hours (Table) 05/12/23 13:32 Blood Culture - Preliminary Blood Assessment and Plan (1) Sepsis Current Visit: Yes Status: Acute Code(s): A41.9 - SEPSIS, UNSPECIFIED ORGANISM SNOMED Code(s): 21996344 Plan: 1patient presented hospital with a fever and left periorbital headache along with some nausea but no vomiting patient did have extensive work-up at [facility] including CT angiogram of the chest CT abdominal pelvis that was reported negative for acute infection, patient do not have any neck rigidity and there was no evidence of any periorbital cellulitis patient did have a normal white count and a question of possible viral syndrome, patient also have elevated liver enzymes. 2 COVID-19 PCR request for lab collected, the patient hepatitis panel CMV came back negative and EBV serology not suggestive of acute infection 3-patient CT abdominal pelvis did show some thickening of the cecum and ascending colon concerning for possible colitis the patient fever responded to Zosyn to continue and will transition to oral Augmentin on discharge patient denied is more likely related to the contrast that was taken yesterday if persistent will obtain stool studies Dictation was produced using [employer] dictation software. please excuse any grammatical, word or spelling errors. Time with Patient: Less than 30
--- NOTE | 2023-05-14 15:01 | P.PN ---
Subjective Progress Note Date: 05/14/23 This is a 47-year-old female with past medical history of diabetes mellitus, hyperlipidemia, seizure disorder, sleep apnea, migraines, heart catheterization that was normal, anxiety/depression, smoker, also history of diverticulitis and pancreatitis. Patient presents to [facility] for a 3 day history of abdominal pain and headache was found to be febrile on admission there. Patient had elevated pro-calcitonin and lactic acidosis. She had abdominal pelvis CT completed that was essentially normal , urinalysis not showing infection, patient was brought to [facility] for further evaluation and workup. Patient was found to be low grade fever 99 and tachycardic heart rate was in the 110s. White count is normal, lactic acid has normalized down to 2.0. Blood glucoses in the 300s. Patient continues to severe abdominal pain radiating 10 out of 10 and is having dry heaving and vomiting mostly bile. Epigastric region and right upper questionable tender to palpation. Patient states this pain feels different than what she has had previous episodes of pancreatitis and diverticulitis. We will repeat an abdominal x-ray and check an amylase lipase level. Sepsis work up in progress and antibiotics have been changed to Zosyn we will ask ID to see the patient. 05/13/2023 Patient is evaluated today resting in bed continues to report fever chills and cold sweats. She does have chronic abdominal pain since the removal of her gallbladder at although she has RUQ abdominal tenderness on palpation this is chronic for her. No BM 4 days having some nausea no episodes of emesis today wou ld like to try clear liquid diet this will be added for. Chart from [facility] is reviewed patient had a negative viral panel including Covid which was negative and strep which was negative. Her workup here consists of an elevated pro- calcitonin level of 0.9 to her AST and ALT are elevated at 111 and 64. Her total bili is normal at 0.6. Sodium is 134. Inflammatory markers are elevated with LDH of 266 and a CRP of 7.5. urinalysis is unremarkable. Patient did have abdominal acute series which is showing no radiographic evidence for acute abdominal process there is basilar patchy airspace opacities representing atelectasis and less likely infiltrates there is a left renal calculus suggested measuring up to 1 cm. 05/14/2023 Patient eval adjacent to the chair. She is complaining of her chronic abdominal pain and has not received Suboxone sublingual which is resumed patient does have at the bedside and we will discontinue the [place]. Abdominal pelvis CT showing groundglass reticular changes in the lower lungs slightly increased from prior probably reflecting underlying fibrosis. There is severe hepatic steatosis. 4 distinction between the pancreatic tail, posterior gastric fundus and the splenic hilum similar to appearance from 2019. There is a 3.4 cm cystic structure measuring 3.6 back in 2019. There is mural thickening on the right lateral wall of the cecum and lower descending colon could represent adherent stool material. There is a 2 mm nonobstructive left renal calculus. Patient has moderate degenerative disc disease and facet arthropathy in the lower lumbar spine. She did have an episode of liquid stool earlier this morning likely related to related to the contrast received yesterday however C. difficile cultures will be checked. Blood glucose remains in the 200s, sodium 135 liver enzymes are trending up AST is 111, ALT 64. White count remains normal. Patient remains on IV zosyn and infectious disease following closely. Review of Systems Constitutional: Reports fevere,malaise and chills Cardio vascular: denied any chest pain, palpitations Gastrointestinal: Reports nausea, vomiting Pulmonary: Denied any shortness of breath cough Neurologic denied any new focal deficits All inpatient medications were reviewed and appropriate changes in these medications as dictated in the interval history and assessment and plan. PHYSICAL EXAMINATION: GENERAL: The patient is alert and oriented x3, distressed abdominal guarding. Well developed, well nourished. HEENT: Pupils are round and equally reacting to light. EOMI. No scleral icterus. No conjunctival pallor. Normocephalic, atraumatic. No pharyngeal erythema. No thyromegaly. CARDIOVASCULAR: S1 and S2 present. No murmurs, rubs, or gallops. PULMONARY: Chest is clear to auscultation, no wheezing or crackles. ABDOMEN: Soft, Epigastric and RUQ tenderness, nondistended, normoactive bowel sounds. No palpable organomegaly. MUSCULOSKELETAL: No joint swelling or deformity. EXTREMITIES: No cyanosis, clubbing, or pedal edema. NEUROLOGICAL: Gross neurological examination did not reveal any focal deficits. SKIN: No rashes. Assessment Acute abdominal pain with nausea and vomiting patient does have history of diverticulitis as well as pancreatitis Fever and sepsis unknown source of infection procalcitonin is elevated patient remains on empiric antibiotics and ID following. Sinus tachycardia secondary to above Hyponatremia, hypovolemic due to the nausea and vomiting improved Diabetes mellitus type 2 with hyperglycemia patient is resumed on home dose of Levemir at bedtime and is on Accu-Cheks and sliding scale Chronic abdominal pain following cholecystectomy in 2019 on chronic pain management with suboxone outpatient. History of seizure disorder Hx of CT History of hyperlipidemia History of migraines History of sleep apnea and does not use a CPAP History of anxiety/depression Chronic nicotine use Obesity GI prophylaxis with IV Protonix DVT prophylaxis early ambulation Full code Plan Antibiotics have been changed to IV zosyn and blood cultures are pending, negative so far. Check C. Dif and stool cultures. Continue supportive care with antiemetics, pain management. Fluids decreased is normal saline at 75 mL per hour patient is upgraded to a full liquid diet Resumed on home suboxone for pain management and norco has been discontinued Repeat labs in AM The impression and plan of care has been dictated by Rose Mary Kapadia, Nurse Practitioner as directed. Dr. Job MD I have performed a history and physical examination and medical decision making of this patient, discussed the same with the dictator, and agree with the di ctators assessment and plan as written, documented as a scribe. Based on total visit time, I have performed more than 50% of this visit. Objective - Vital Signs Vital signs: Vital Signs Temp 99.2 F 05/14/23 04:00 Pulse 86 05/14/23 04:00 Resp 18 05/14/23 04:00 BP 144/79 05/14/23 04:00 Pulse Ox 98 05/14/23 04:00 FiO2 Intake & Output 05/13/23 05/14/23 05/14/23 18:59 06:59 18:59 Intake Total 700 Output Total 700 150 Balance 0 -150 Intake: Intake, IV Titration 700 Amount Piperacillin-Tazobactam 3 100 .375 gm In Sodium Chloride 0.9% 100 ml @ 25 mls/hr IVPB Q8HR [facility] Rx# :[id number] Sodium Chloride 0.9% 1, 600 000 ml @ 75 mls/hr IV . [id number] I[facility]A Rx#:[id number] Output: Urine 700 150 Other: # Voids 1 1 - Labs CBC & Chem 7: 05/14/23 07:02 05/14/23 07:02 Labs: Abnormal Lab Results - Last 24 Hours (Table) 05/13/23 05/13/23 05/13/23 Range/Units 10:51 10:51 10:51 RBC 3.75 L (3.80-5.40) m/uL Hgb (11.4-16.0) gm/dL Hct 33.1 L (34.0-46.0) % Plt Count 87 L (150-450) k/uL Lymphocytes # 0.6 L (1.0-4.8) k/uL Sodium 134 L (137-145) mmol/L Creatinine 0.39 L (0.52-1.04) mg/dL Glucose 260 H (74-99) mg/dL POC Glucose (mg/dL) (70-110) mg/dL Hemoglobin A1c 10.1 H (<=6.0) % Calcium 7.9 L (8.4-10.2) mg/dL Magnesium 2.4 H (1.6-2.3) mg/dL AST 111 H (14-36) U/L ALT 64 H (4-34) U/L Total Protein 6.2 L (6.3-8.2) g/dL Albumin 3.3 L (3.5-5.0) g/dL EBV Capsid Ag IgG Intrp (Negative) EBV Nuc Ag IgG Interp (Negative) 05/13/23 05/13/23 05/13/23 Range/Units 10:51 11:48 16:47 RBC (3.80-5.40) m/uL Hgb (11.4-16.0) gm/dL Hct (34.0-46.0) % Plt Count (150-450) k/uL Lymphocytes # (1.0-4.8) k/uL Sodium (137-145) mmol/L Creatinine (0.52-1.04) mg/dL Glucose (74-99) mg/dL POC Glucose (mg/dL) 281 H 286 H (70-110) mg/dL Hemoglobin A1c (<=6.0) % Calcium (8.4-10.2) mg/dL Magnesium (1.6-2.3) mg/dL AST (14-36) U/L ALT (4-34) U/L Total Protein (6.3-8.2) g/dL Albumin (3.5-5.0) g/dL EBV Capsid Ag IgG Intrp Positive A (Negative) EBV Nuc Ag IgG Interp Positive A (Negative) 05/13/23 05/14/23 05/14/23 Range/Units 20:13 06:06 07:02 RBC 3.67 L (3.80-5.40) m/uL Hgb 11.2 L (11.4-16.0) gm/dL Hct 32.5 L (34.0-46.0) % Plt Count 93 L (150-450) k/uL Lymphocytes # 0.7 L (1.0-4.8) k/uL Sodium (137-145) mmol/L Creatinine (0.52-1.04) mg/dL Glucose (74-99) mg/dL POC Glucose (mg/dL) 278 H 240 H (70-110) mg/dL Hemoglobin A1c (<=6.0) % Calcium (8.4-10.2) mg/dL Magnesium (1.6-2.3) mg/dL AST (14-36) U/L ALT (4-34) U/L Total Protein (6.3-8.2) g/dL Albumin (3.5-5.0) g/dL EBV Capsid Ag IgG Intrp (Negative) EBV Nuc Ag IgG Interp (Negative) 05/14/23 Range/Units 07:02 RBC (3.80-5.40) m/uL Hgb (11.4-16.0) gm/dL Hct (34.0-46.0) % Plt Count (150-450) k/uL Lymphocytes # (1.0-4.8) k/uL Sodium 135 L (137-145) mmol/L Creatinine 0.39 L (0.52-1.04) mg/dL Glucose 218 H (74-99) mg/dL POC Glucose (mg/dL) (70-110) mg/dL Hemoglobin A1c (<=6.0) % Calcium 7.8 L (8.4-10.2) mg/dL Magnesium (1.6-2.3) mg/dL AST (14-36) U/L ALT (4-34) U/L Total Protein (6.3-8.2) g/dL Albumin (3.5-5.0) g/dL EBV Capsid Ag IgG Intrp (Negative) EBV Nuc Ag IgG Interp (Negative) Microbiology - Last 24 Hours (Table) 05/12/23 13:32 Blood Culture - Preliminary Blood Assessment and Plan Time with Patient: Less than 30
[2023-05-14] MEDS: PIOGLITAZONE 30 MG TAB PO SCH (15:37)
[2023-05-14] MEDS: SUBOXONE SUBLINGUAL SCH ×2 (15:39→21:52)
[2023-05-14 16:51] LABS: Glucose,Whole Blood 232 mg/dL (70-110)
[2023-05-14] MEDS: LIPASE 20,000/PROTEASE 63,000/AMYLASE 84,000 PO SCH (17:05)
[2023-05-14 20:18] LABS: Glucose,Whole Blood 261 mg/dL (70-110)
[2023-05-14] MEDS: INSULIN DETEMIR (LEVEMIR) 100 UNIT/ML SYR SQ SCH (21:21)
[2023-05-15 06:01] LABS: Glucose,Whole Blood 290 mg/dL (70-110)
[2023-05-15] MEDS: LIPASE 20,000/PROTEASE 63,000/AMYLASE 84,000 PO SCH ×3 (06:06→18:09)
[2023-05-15] MEDS: INSULIN ASPART (NovoLOG) 100 UNIT/ML VIAL SQ SCH ×7 (06:08→21:15)
[2023-05-15] MEDS: SODIUM CHLORIDE 0.9% 1,000 ML IV SCH ×2 (06:09→23:11)
[2023-05-15] MEDS: PIOGLITAZONE 30 MG TAB PO SCH (09:01)
[2023-05-15] MEDS: levETIRAcetam 500 MG TAB PO SCH ×2 (09:01→21:15)
[2023-05-15] MEDS: SUBOXONE SUBLINGUAL SCH ×2 (09:01→21:14)
[2023-05-15] MEDS: LACOSAMIDE 50 MG TABLET PO SCH ×2 (09:06→21:15)
[2023-05-15] MEDS: PIPERACILLIN-TAZOBACTAM 3.375 GM in SODIUM CHLORIDE 0.9% 100 ML IVPB SCH (09:16)
[2023-05-15 11:21] LABS: Glucose,Whole Blood 252 mg/dL (70-110)
[2023-05-15] MEDS: INSULIN DETEMIR (LEVEMIR) 100 UNIT/ML SYR SQ SCH ×2 (12:14→21:15)
--- NOTE | 2023-05-15 14:56 | P.PN ---
Subjective Progress Note Date: 05/15/23 This is a 47-year-old female with past medical history of diabetes mellitus, hyperlipidemia, seizure disorder, sleep apnea, migraines, heart catheterization that was normal, anxiety/depression, smoker, also history of diverticulitis and pancreatitis. Patient presents to [facility] for a 3 day history of abdominal pain and headache was found to be febrile on admission there. Patient had elevated pro-calcitonin and lactic acidosis. She had abdominal pelvis CT completed that was essentially normal , urinalysis not showing infection, patient was brought to [facility] for further evaluation and workup. Patient was found to be low grade fever 99 and tachycardic heart rate was in the 110s. White count is normal, lactic acid has normalized down to 2.0. Blood glucoses in the 300s. Patient continues to severe abdominal pain radiating 10 out of 10 and is having dry heaving and vomiting mostly bile. Epigastric region and right upper questionable tender to palpation. Patient states this pain feels different than what she has had previous episodes of pancreatitis and diverticulitis. We will repeat an abdominal x-ray and check an amylase lipase level. Sepsis work up in progress and antibiotics have been changed to Zosyn we will ask ID to see the patient. 05/13/2023 Patient is evaluated today resting in bed continues to report fever chills and cold sweats. She does have chronic abdominal pain since the removal of her gallbladder at although she has RUQ abdominal tenderness on palpation this is chronic for her. No BM 4 days having some nausea no episodes of emesis today wou ld like to try clear liquid diet this will be added for. Chart from [facility] is reviewed patient had a negative viral panel including Covid which was negative and strep which was negative. Her workup here consists of an elevated pro- calcitonin level of 0.9 to her AST and ALT are elevated at 111 and 64. Her total bili is normal at 0.6. Sodium is 134. Inflammatory markers are elevated with LDH of 266 and a CRP of 7.5. urinalysis is unremarkable. Patient did have abdominal acute series which is showing no radiographic evidence for acute abdominal process there is basilar patchy airspace opacities representing atelectasis and less likely infiltrates there is a left renal calculus suggested measuring up to 1 cm. 05/14/2023 Patient eval adjacent to the chair. She is complaining of her chronic abdominal pain and has not received Suboxone sublingual which is resumed patient does have at the bedside and we will discontinue the [place]. Abdominal pelvis CT showing groundglass reticular changes in the lower lungs slightly increased from prior probably reflecting underlying fibrosis. There is severe hepatic steatosis. 4 distinction between the pancreatic tail, posterior gastric fundus and the splenic hilum similar to appearance from 2019. There is a 3.4 cm cystic structure measuring 3.6 back in 2019. There is mural thickening on the right lateral wall of the cecum and lower descending colon could represent adherent stool material. There is a 2 mm nonobstructive left renal calculus. Patient has moderate degenerative disc disease and facet arthropathy in the lower lumbar spine. She did have an episode of liquid stool earlier this morning likely related to related to the contrast received yesterday however C. difficile cultures will be checked. Blood glucose remains in the 200s, sodium 135 liver enzymes are trending up AST is 111, ALT 64. White count remains normal. Patient remains on IV zosyn and infectious disease following closely. 05/15/2023 Patient is evaluated today resting in bed. She continues to reports no abdominal pain and has 2 episodes of diarrhea overnight. Denies any blood in the stool. Microbiology from [place] shows staph bacteremia and discharge has been held because of this. Patient did have a repeat blood culture taken here which is currently pending at this time. Negative so far. Discussed with infectious disease was recommending to him bad ax to IV cefazolin and stop the Zosyn at this time. Patient does have a small wound on the bottom of the left great toe which appears more as a callus with some bruising there is no erythema in this time. Does not appear Infected however we will order a foot x-ray to rule out source of infection for the staph bacteremia as the foot wound. Patient is advanced to a full liquid diet. Resumed on home dose of Suboxone and reports improvement in pain. Review of Systems Constitutional: Reports fevere, malaise and chills Cardio vascular: denied any chest pain, palpitations Gastrointestinal: Reports nausea, vomiting Pulmonary: Denied any shortness of breath cough Neurologic denied any new focal deficits All inpatient medications were reviewed and appropriate changes in these m edications as dictated in the interval history and assessment and plan. PHYSICAL EXAMINATION: GENERAL: The patient is alert and oriented x3, distressed abdominal guarding. Well developed, well nourished. HEENT: Pupils are round and equally reacting to light. EOMI. No scleral icterus. No conjunctival pallor. Normocephalic, atraumatic. No pharyngeal erythema. No thyromegaly. CARDIOVASCULAR: S1 and S2 present. No murmurs, rubs, or gallops. PULMONARY: Chest is clear to auscultation, no wheezing or crackles. ABDOMEN: Soft, Epigastric and RUQ tenderness, nondistended, normoactive bowel sounds. No palpable organomegaly. MUSCULOSKELETAL: No joint swelling or deformity. EXTREMITIES: No cyanosis, clubbing, or pedal edema. NEUROLOGICAL: Gross neurological examination did not reveal any focal deficits. SKIN: No rashes. Assessment Acute abdominal pain with nausea and vomiting patient does have history of diverticulitis as well as pancreatitis Fever and sepsis blood culture from [facility] showing staph bacteremia repeat blood culture is pending and negative so far patient has been transitioned to IV cefazolin for antibiotic coverage. Infectious disease is following closely Hyponatremia, hypovolemic due to the nausea and vomiting improved Diabetes mellitus type 2 with hyperglycemia patient is resumed on home dose of Levemir at bedtime and is on Accu-Cheks and sliding scale Chronic abdominal pain following cholecystectomy in 2019 on chronic pain management with suboxone outpatient. History of seizure disorder Hx of [place] History of hyperlipidemia History of migraines History of sleep apnea and does not use a CPAP History of anxiety/depression Chronic nicotine use Obesity GI prophylaxis with IV Protonix DVT prophylaxis early ambulation Full code Plan Pending review blood cultures patient will require antibiotics on discharge per infectious disease currently she is a change IV cefazolin and a foot x-ray is ordered for the left great toe wound rule out source of infection. If this is negative the patient will undergo a WBC nuclear medicine scan. Continue supportive care with antiemetics, pain management. Fluids at 75 mL per hour patient is upgraded to a full liquid diet Resumed on home suboxone for pain management and norco has been discontinued Repeat labs in AM The impression and plan of care has been dictated by Rose Mary Kapadia Nurse Practitioner as directed. Dr. Job MD I have performed a history and physical examination and medical decision making of this patient, discussed the same with the dictator, and agree with the dictators assessment and plan as written, documented as a scribe. Based on total visit time, I have performed more than 50% of this visit. Objective - Vital Signs Vital signs: Vital Signs Temp 98.1 F 05/15/23 08:00 Pulse 76 05/15/23 08:00 Resp 18 05/15/23 08:00 BP 136/81 05/15/23 08:00 Pulse Ox 98 05/15/23 08:00 FiO2 Intake & Output 05/14/23 05/15/23 05/15/23 18:59 06:59 18:59 Intake Total 2356 Output Total 425 550 Balance 1931 -550 Weight 109.3 kg Intake: Intake, IV Titration 800 Amount Piperacillin-Tazobactam 3 200 .375 gm In Sodium Chloride 0.9% 100 ml @ 25 mls/hr IVPB Q8HR IZ[facility]A Rx# :[id number] Sodium Chloride 0.9% 1, 600 000 ml @ 75 mls/hr IV . [id number] IZABELLA Rx#:[id number] Oral 1556 Output: Urine 425 550 Other: Voiding Method Toilet Toilet # Bowel Movements 1 1 - Labs CBC & Chem 7: 05/14/23 07:02 05/14/23 07:02 Labs: Abnormal Lab Results - Last 24 Hours (Table) 05/14/23 05/14/23 05/15/23 Range/Units 16:49 20:17 05:59 POC Glucose (mg/dL) 232 H 261 H 290 H (70-110) mg/dL 05/15/23 Range/Units 11:20 POC Glucose (mg/dL) 252 H (70-110) mg/dL Microbiology - Last 24 Hours (Table) 05/12/23 13:32 Blood Culture - Preliminary Blood Assessment and Plan Time with Patient: Less than 30
--- NOTE | 2023-05-15 15:10 | XR ---
EXAMINATION TYPE: XR foot complete LT DATE OF EXAM: 05/15/2023 3:04 PM INDICATION: Patient age:Female; 47 years old; Reason for study: left great toe wound; PHH. COMPARISON: Left foot radiograph 08/03/2022 TECHNIQUE: The left foot was examined in the AP, oblique, and lateral projections. FINDINGS: No evidence of any acute osseous pathology. Healed second through fifth metatarsal fractures. Mild freire llux valgus deformity. No osseous erosions. No radiopaque foreign body. Mild soft tissue swelling of the first digit. Joints are preserved. Incidental note is made of symphalangism of the fifth distal i nterphalangeal joint. Pes planus. IMPRESSION: 1. No evidence of acute fracture. 2. Healed second through fifth metatarsal fractures. 3. Mild hallux valgus alignment. 4. Pes planus. 5. Mild soft tissue swelling of the first digit.
[2023-05-15 16:56] LABS: Glucose,Whole Blood 235 mg/dL (70-110)
[2023-05-15] MEDS: ERTUGLIFLOZIN PIDOLATE 5 MG PO SCH (17:55)
[2023-05-15] MEDS: PANTOPRAZOLE 40 MG/10 ML VIAL IVP SCH ×2 (17:55→21:19)
[2023-05-15 20:04] LABS: Glucose,Whole Blood 245 mg/dL (70-110)
[2023-05-15] MEDS: FENOFIBRATE 160 MG TAB PO SCH (21:15)
[2023-05-16 05:57] LABS: Glucose,Whole Blood 229 mg/dL (70-110)
[2023-05-16] MEDS: LIPASE 20,000/PROTEASE 63,000/AMYLASE 84,000 PO SCH ×3 (06:15→17:37)
[2023-05-16] MEDS: INSULIN DETEMIR (LEVEMIR) 100 UNIT/ML SYR SQ SCH ×2 (06:15→20:14)
[2023-05-16] MEDS: INSULIN ASPART (NovoLOG) 100 UNIT/ML VIAL SQ SCH ×7 (06:15→20:15)
[2023-05-16 08:25] LABS: Basophils % (A) 0 %; Eosinophils # (A) 0.1 k/uL (0-0.7); Eosinophils % (A) 2 %; HCT 32.1 % (34.0-46.0); HGB 10.8 gm/dL (11.4-16.0); Lymphocytes # (A) 1.3 k/uL (1.0-4.8); Lymphocytes % (A) 27 %; MCH 29.7 pg (25.0-35.0); MCHC 33.8 g/dL (31.0-37.0); MCV 88.1 fL (80.0-100.0); Mean Platelet Volume 8.6; Monocytes # (A) 0.4 k/uL (0-1.0); Monocytes % (A) 8 %; Neutrophils % (A) 61 %; RBC 3.64 m/uL (3.80-5.40); RDW 13.4 % (11.5-15.5); WBC 4.9 k/uL (3.8-10.6)
[2023-05-16 08:31] LABS: Platelet Count 141 k/uL (150-450)
[2023-05-16 08:50] LABS: African American GFR (CKD) >90 (>60 ml/min/1.73 sqM); Anion Gap 6 mmol/L; Blood Urea Nitrogen 4 mg/dL (7-17); Calcium 8.1 mg/dL (8.4-10.2); Carbon Dioxide 32 mmol/L (22-30); Chloride 101 mmol/L (98-107); Glucose 176 mg/dL (74-99); Non-African American GFR(CKD) >90 (>60 ml/min/1.73 sqM); Potassium 3.3 mmol/L (3.5-5.1); Sodium 139 mmol/L (137-145)
--- NOTE | 2023-05-16 09:34 | P.PN ---
Subjective Progress Note Date: 05/15/23 Principal diagnosis: Fever, possible pneumonia versus abdominal source Patient is a 47-year old female with a past medical history significant for diabetes mellitus hyperlipidemia GA seizure disorder sleep apnea, initially presented to [facility] for evaluation of headache, patient did have a negative CT of the chest abdomen and pelvis subsequent the patient has been transferred to us for further workup.CT of abdominal pelvis tissue some ground glass and reticular changes lower lungs mild cardiomegaly and question of possible thrombosed splenic artery versus a necrotic pseudocyst mural thickening of the right lateral wall of the cecum and ascending colon, hepatitis panel is negative CMV serology negative EBV IgG positive IgM negative On today's evaluation that is 05/15/2023 patient denies any fever or any chills, the patient is breathing comfortably on 2 L nasal cannula oxygen, the patient having any chest pain occasional cough , denies any worsening abdominal pain no nausea or vomiting has been complaining of loose stool 3 today patient also mentioned for the first time today with the left big toe minimally swollen did have a callus on the plantar aspect denies any history of any trauma or any drainage Patient blood culture drawn here has been negative however the patient blood culture drawn at the outside facility came back positive was staph aureus Objective - Vital Signs Vital signs: Vital Signs Temp 98.1 F 05/15/23 08:00 Pulse 76 05/15/23 08:00 Resp 18 05/15/23 08:00 BP 136/81 05/15/23 08:00 Pulse Ox 98 05/15/23 08:00 FiO2 Intake & Output 05/14/23 05/15/23 05/15/23 18:59 06:59 18:59 Intake Total 2356 Output Total 425 550 Balance 1931 -550 Weight 109.3 kg Intake: Intake, IV Titration 800 Amount Piperacillin-Tazobactam 3 200 .375 gm In Sodium Chloride 0.9% 100 ml @ 25 mls/hr IVPB Q8HR IZABELLA Rx# :[id number] Sodium Chloride 0.9% 1, 600 000 ml @ 75 mls/hr IV . [id number] IZABELLA Rx#:[id number] Oral 1556 Output: Urine 425 550 Other: Voiding Method Toilet Toilet # Bowel Movements 1 1 - Exam GENERAL DESCRIPTION: A middle-aged female lying in bed in no distress RESPIRATORY SYSTEM: Unlabored breathing , decreased breath sounds at bases HEART: S1 S2 regular rate and rhythm , ABDOMEN: Soft , mild distention and tenderness EXTREMITIES: Left big toe with a plantar callus no significant fluctuation or drainage - Labs CBC & Chem 7: 05/16/23 07:23 05/16/23 07:23 Labs: Abnormal Lab Results - Last 24 Hours (Table) 05/14/23 05/14/23 05/15/23 Range/Units 16:49 20:17 05:59 POC Glucose (mg/dL) 232 H 261 H 290 H (70-110) mg/dL 05/15/23 Range/Units 11:20 POC Glucose (mg/dL) 252 H (70-110) mg/dL Microbiology - Last 24 Hours (Table) 05/12/23 13:32 Blood Culture - Preliminary Blood Assessment and Plan (1) Bacteremia Current Visit: Yes Status: Acute Code(s): R78.81 - BACTEREMIA SNOMED Code(s): 5304341 Plan: 1patient presented hospital with a fever and left periorbital headache along with some nausea but no vomiting patient did have extensive work-up at [facility] including CT angiogram of the chest CT abdominal pelvis that was reported negative for acute infection, patient do not have any neck rigidity and there was no evidence of any periorbital cellulitis patient did have a normal white count and a question of possible viral syndrome, patient also have elevated liver enzymes. [address] abdominal pelvis did show some thickening of the cecum and ascending colon concerning for possible colitis the patient fever responded to Zosyn 3-patient with a positive blood culture with Staphylococcus aureus possibly MSSA as the patient fever responded to the Zosyn source questionable early left big toe cellulitis. We'll obtain x-ray to make sure that evidence of any bony destruction antibiotic switched over to cefazolin we will follow-up on the repe at blood cultures and Sensitivity from the outside facility will need IV antibiotic on discharge discussed with the medical team Dictation was produced using Related Content Database (RCDb) dictation software. please excuse any grammatical, word or spelling errors. Time with Patient: Less than 30
[2023-05-16] MEDS: PIOGLITAZONE 30 MG TAB PO SCH (10:00)
[2023-05-16] MEDS: LACOSAMIDE 50 MG TABLET PO SCH ×2 (10:00→20:16)
[2023-05-16] MEDS: levETIRAcetam 500 MG TAB PO SCH ×2 (10:00→20:16)
[2023-05-16] MEDS: PANTOPRAZOLE 40 MG/10 ML VIAL IVP SCH ×2 (10:00→20:15)
[2023-05-16] MEDS: POTASSIUM CHLORIDE ER 10 MEQ TAB.ER.PRT PO SCH ×2 (10:21→20:16)
[2023-05-16] MEDS: SUBOXONE SUBLINGUAL SCH ×2 (10:21→20:15)
[2023-05-16 11:31] LABS: Glucose,Whole Blood 233 mg/dL (70-110)
[2023-05-16] MEDS: ERTUGLIFLOZIN PIDOLATE 5 MG PO SCH (11:56)
[2023-05-16] MEDS: SODIUM CHLORIDE 0.9% 1,000 ML IV SCH (12:04)
[2023-05-16] MEDS ORDERED: VANCOMYCIN IV PER PHARMACY 1 EACH MISC MISCELLANE PRN (16:12)
--- NOTE | 2023-05-16 16:24 | P.PN ---
Subjective Progress Note Date: 05/16/23 This is a 47-year-old female with past medical history of diabetes mellitus, hyperlipidemia, seizure disorder, sleep apnea, migraines, heart catheterization that was normal, anxiety/depression, smoker, also history of diverticulitis and pancreatitis. Patient presents to [facility] for a 3 day history of abdominal pain and headache was found to be febrile on admission there. Patient had elevated pro-calcitonin and lactic acidosis. She had abdominal pelvis CT completed that was essentially normal , urinalysis not showing infection, patient was brought to [facility] for further evaluation and workup. Patient was found to be low grade fever 99 and tachycardic heart rate was in the 110s. White count is normal, lactic acid has normalized down to 2.0. Blood glucoses in the 300s. Patient continues to severe abdominal pain radiating 10 out of 10 and is having dry heaving and vomiting mostly bile. Epigastric region and right upper questionable tender to palpation. Patient states this pain feels different than what she has had previous episodes of pancreatitis and diverticulitis. We will repeat an abdominal x-ray and check an amylase lipase level. Sepsis work up in progress and antibiotics have been changed to Zosyn we will ask ID to see the patient. 05/13/2023 Patient is evaluated today resting in bed continues to report fever chills and cold sweats. She does have chronic abdominal pain since the removal of her gallbladder at although she has RUQ abdominal tenderness on palpation this is chronic for her. No BM 4 days having some nausea no episodes of emesis today wou ld like to try clear liquid diet this will be added for. Chart from [facility] is reviewed patient had a negative viral panel including Covid which was negative and strep which was negative. Her workup here consists of an elevated pro- calcitonin level of 0.9 to her AST and ALT are elevated at 111 and 64. Her total bili is normal at 0.6. Sodium is 134. Inflammatory markers are elevated with LDH of 266 and a CRP of 7.5. urinalysis is unremarkable. Patient did have abdominal acute series which is showing no radiographic evidence for acute abdominal process there is basilar patchy airspace opacities representing atelectasis and less likely infiltrates there is a left renal calculus suggested measuring up to 1 cm. 05/14/2023 Patient eval adjacent to the chair. She is complaining of her chronic abdominal pain and has not received Suboxone sublingual which is resumed patient does have at the bedside and we will discontinue the Garrard. Abdominal pelvis CT showing groundglass reticular changes in the lower lungs slightly increased from prior probably reflecting underlying fibrosis. There is severe hepatic steatosis. 4 distinction between the pancreatic tail, posterior gastric fundus and the splenic hilum similar to appearance from 2019. There is a 3.4 cm cystic structure measuring 3.6 back in 2019. There is mural thickening on the right lateral wall of the cecum and lower descending colon could represent adherent stool material. There is a 2 mm nonobstructive left renal calculus. Patient has moderate degenerative disc disease and facet arthropathy in the lower lumbar spine. She did have an episode of liquid stool earlier this morning likely related to related to the contrast received yesterday however C. difficile cultures will be checked. Blood glucose remains in the 200s, sodium 135 liver enzymes are trending up AST is 111, ALT 64. White count remains normal. Patient remains on IV zosyn and infectious disease following closely. 05/15/2023 Patient is evaluated today resting in bed. She continues to reports no abdominal pain and has 2 episodes of diarrhea overnight. Denies any blood in the stool. Microbiology from [place] shows staph bacteremia and discharge has been held because of this. Patient did have a repeat blood culture taken here which is currently pending at this time. Negative so far. Discussed with infectious disease was recommending to him bad ax to IV cefazolin and stop the Zosyn at this time. Patient does have a small wound on the bottom of the left great toe which appears more as a callus with some bruising there is no erythema in this time. Does not appear Infected however we will order a foot x-ray to rule out source of infection for the staph bacteremia as the foot wound. Patient is advanced to a full liquid diet. Resumed on home dose of Suboxone and reports improvement in pain. 05/16/2023 Patient is evaluated today resting in bed. She continues to report she does not feel quite back to baseline. Underwent a foot x-ray of the left foot does not reveal any signs of eczema laser increased uptake. Patient was noted to have Staphylococcus aureus bacteremia from [facility] blood culture with reports showing as MRSA on the sensitivities. Patient has had a repeat blood culture done here which is negative so far. She remains on IV antibiotics which have been transitioned to vancomycin today. Patient is scheduled to undergo a tagged WBC scan today and will need a PICC line vs. midline placement for discharge antibiotics. Review of Systems Constitutional: Reports fevere, malaise and chills Cardio vascular: denied any chest pain, palpitations Gastrointestinal: Reports nausea, vomiting Pulmonary: Denied any shortness of breath cough Neurologic denied any new focal deficits All inpatient medications were reviewed and appropriate changes in these medications as dictated in the interval history and assessment and plan. PHYSICAL EXAMINATION: GENERAL: The patient is alert and oriented x3, distressed abdominal guarding. Well developed, well nourished. HEENT: Pupils are round and equally reacting to light. EOMI. No scleral icterus. No conjunctival pallor. Normocephalic, atraumatic. No pharyngeal erythema. No thyromegaly. CARDIOVASCULAR: S1 and S2 present. No murmurs, rubs, or gallops. PULMONARY: Chest is clear to auscultation, no wheezing or crackles. ABDOMEN: Soft, Epigastric and RUQ tenderness, nondistended, normoactive bowel sounds. No palpable organomegaly. MUSCULOSKELETAL: No joint swelling or deformity. EXTREMITIES: No cyanosis, clubbing, or pedal edema. NEUROLOGICAL: Gross neurological examination did not reveal any focal deficits. SKIN: No rashes. Assessment Acute abdominal pain with nausea and vomiting patient does have history of diverticulitis as well as pancreatitis this is improving Fever and sepsis Blood Culture from [facility] showing MRSA repeat is negative so far Hyponatremia, hypovolemic due to the nausea and vomiting improved Hypokalemia Diabetes mellitus type 2 with hyperglycemia patient is resumed on home dose of Levemir at bedtime and is on Accu-Cheks and sliding scale Chronic abdominal pain following cholecystectomy in 2019 on chronic pain management with suboxone outpatient. History of seizure disorder Hx of [place] History of hyperlipidemia History of migraines History of sleep apnea and does not use a CPAP History of anxiety/depression Chronic nicotine use Obesity GI prophylaxis with IV Protonix DVT prophylaxis early ambulation Full code Plan Patient with MRSA bacteremia with repeat blood culture pending. Patient will r equire IV antibiotics discharge with midline versus PICC depending on the WBC scan results. Continue supportive care with antiemetics, pain management. She has been upgraded to a regular diet. Resumed on home suboxone for pain management and norco has been discontinued. Repeat BMP in a.m. Possible discharge home in the next 24 hours. The impression and plan of care has been dictated by Rose Mary Kapadia, Nurse Practitioner as directed. Dr. Job MD I have performed a history and physical examination and medical decision making of this patient, discussed the same with the dictator, and agree with the dictators assessment and plan as written, documented as a scribe. Based on total visit time, I have performed more than 50% of this visit. Objective - Vital Signs Vital signs: Vital Signs Temp 97.3 F L 05/16/23 00:00 Pulse 72 05/16/23 03:29 Resp 18 05/16/23 03:29 BP 134/72 05/16/23 03:29 Pulse Ox 97 05/16/23 03:29 FiO2 Intake & Output 05/15/23 05/16/23 05/16/23 18:59 06:59 18:59 Intake Total 400 Balance 400 Intake: Oral 400 Other: Voiding Method Toilet Toilet - Labs CBC & Chem 7: 05/16/23 07:23 05/16/23 07:23 Labs: Abnormal Lab Results - Last 24 Hours (Table) 05/15/23 05/15/23 05/15/23 Range/Units 11:20 16:55 20:03 RBC (3.80-5.40) m/uL Hgb (11.4-16.0) gm/dL Hct (34.0-46.0) % Plt Count (150-450) k/uL Potassium (3.5-5.1) mmol/L Carbon Dioxide (22-30) mmol/L BUN (7-17) mg/dL Creatinine (0.52-1.04) mg/dL Glucose (74-99) mg/dL POC Glucose (mg/dL) 252 H 235 H 245 H (70-110) mg/dL Calcium (8.4-10.2) mg/dL 05/16/23 05/16/23 05/16/23 Range/Units 05:54 07:23 07:23 RBC 3.64 L (3.80-5.40) m/uL Hgb 10.8 L (11.4-16.0) gm/dL Hct 32.1 L (34.0-46.0) % Plt Count 141 L D (150-450) k/uL Potassium 3.3 L (3.5-5.1) mmol/L Carbon Dioxide 32 H (22-30) mmol/L BUN 4 L (7-17) mg/dL Creatinine 0.36 L (0.52-1.04) mg/dL Glucose 176 H (74-99) mg/dL POC Glucose (mg/dL) 229 H (70-110) mg/dL Calcium 8.1 L (8.4-10.2) mg/dL Microbiology - Last 24 Hours (Table) 05/12/23 13:32 Blood Culture - Preliminary Blood Assessment and Plan Time with Patient: Less than 30
[2023-05-16] MEDS ORDERED: VANCOMYCIN 1,750 MG in SODIUM CHLORIDE 0.9% 500 ML 500 ML IVPB ONE (16:45)
[2023-05-16 16:55] LABS: Glucose,Whole Blood 227 mg/dL (70-110)
--- NOTE | 2023-05-16 17:00 | NM ---
EXAMINATION TYPE: NM WBC whole body DATE OF EXAM: 05/16/2023 COMPARISON: Correlation CT abdomen and pelvis 05/13/2023 CLINICAL INDICATION: Female, 47 years old with history of bacteremia; TECHNIQUE: Following administration of 9.7 mCi Tc99m Ceretec. Images obtained 3 hours post injectio n. FINDINGS: Normal physiological tracer activity is noted in the liver and spleen and in the bone marrow of the a xial and appendicular skeleton. Glenoid that the liver is markedly enlarged. There is some diffuse bi lateral lung uptake with age may be normal variation. IMPRESSION: 1. Marked hepatomegaly. Note the severe hepatic steatosis seen on patient's recent CT. Appropriate cl inical management recommended. 2. Diffuse bilateral lung uptake may be normal variation. Correlate for any signs or symptoms of pneu monitis. 3. Otherwise, no evidence for focal abnormal tracer activity.
[2023-05-16 19:49] LABS: Glucose,Whole Blood 298 mg/dL (70-110)
[2023-05-16] MEDS: FENOFIBRATE 160 MG TAB PO SCH (20:16)
[2023-05-17] MEDS: VANCOMYCIN 1,750 MG in SODIUM CHLORIDE 0.9% 500 ML 500 ML IVPB SCH ×2 (00:20→10:23)
[2023-05-17] MEDS: SODIUM CHLORIDE 0.9% 1,000 ML IV SCH (01:03)
[2023-05-17 04:43] VITALS: RESP 16
[2023-05-17 05:53] LABS: Glucose,Whole Blood 204 mg/dL (70-110)
[2023-05-17] MEDS: INSULIN DETEMIR (LEVEMIR) 100 UNIT/ML SYR SQ SCH (06:35)
[2023-05-17] MEDS: LIPASE 20,000/PROTEASE 63,000/AMYLASE 84,000 PO SCH ×2 (06:35→11:55)
[2023-05-17] MEDS: INSULIN ASPART (NovoLOG) 100 UNIT/ML VIAL SQ SCH ×4 (06:35→11:55)
[2023-05-17] MEDS: PANTOPRAZOLE 40 MG/10 ML VIAL IVP SCH (08:43)
[2023-05-17] MEDS: LACOSAMIDE 50 MG TABLET PO SCH (08:44)
[2023-05-17] MEDS: PIOGLITAZONE 30 MG TAB PO SCH (08:44)
[2023-05-17] MEDS: levETIRAcetam 500 MG TAB PO SCH (08:44)
[2023-05-17 08:45] LABS: African American GFR (CKD) >90 (>60 ml/min/1.73 sqM); Non-African American GFR(CKD) >90 (>60 ml/min/1.73 sqM)
[2023-05-17] MEDS ORDERED: PATIENT'S OWN (Dulaglutide [Trulicity] 0.75 MG/0.5 ML Each) SQ SCH (09:00)
[2023-05-17] MEDS: SUBOXONE SUBLINGUAL SCH (09:58)
[2023-05-17] MEDS: ERTUGLIFLOZIN PIDOLATE 5 MG PO SCH (10:36)
[2023-05-17] MEDS ORDERED: LIDOCAINE 1% INJ 10MG/ML (5 ML VIAL-PF) SQ ONE (11:02)
[2023-05-17 11:23] LABS: Glucose,Whole Blood 287 mg/dL (70-110)
--- NOTE | 2023-05-17 12:08 | IR ---
PICC LINE PLACEMENT: HISTORY: Infection requiring long-term antibiotic therapy PROCEDURE: Ultrasound and fluoroscopic guidance of PICC line placement. COMPLICATIONS: None ANESTHESIA: 1. 1% Lidocaine locally. FINDINGS/TECHNIQUE: The procedure was explained to the patient. The risks, complications, benefits and alternatives were discussed and any questions were answered. Informed consent was obtained. The patient was placed supine on the fluoroscopic table and prepped and draped in the usual sterile fash ion. Utilizing a 21 gauge needle and sonographic and fluoroscopic guidance, access in the left ceph alic vein was achieved and there is placement of a 0.018 guidewire. The vein is patent. A 4-F sheat h was placed over the guidewire. The guidewire and dilator were removed and a 4-F. PICC line was alexa johnna through the sheath with the tip at the level of the SVC. The sheath was removed, the catheter wa s flushed and sutured into position. The patient was stable throughout the procedure and remained st able upon discharge from the Department of Radiology. The vein puncture was patent under ultrasound. A talamantes scale image was obtained to document patency of the vein punctured. All elements of the maximal barrier technique were utilized. FLUOROSCOPY TIME: DAP 1.30Gy cm2 IMPRESSION: Successful PICC line placement under ultrasound and fluoroscopic guidance.
--- NOTE | 2023-05-17 15:38 | P.DS ---
Providers Date of admission: 05/12/23 08:17 Attending physician: Edgar Ko Consults: 05/12/23 13:18 Consult Physician Routine Consulting Provider: Brittney Virgen Consult Reason/Comments: Sepsis Do you want consulting provider notified?: Yes Primary care physician: Johnnie Voss Hospital Course: Final Diagnosis Acute abdominal pain with nausea and vomiting improved likely from sepsis. Fever and sepsis Blood Culture from [facility] showing MRSA repeat is negative so far Severe hepatic steatosis noted on imaging follow up with pts known GI outpatient. Hyponatremia, hypovolemic due to the nausea and vomiting improved Hypokalemia Diabetes mellitus type 2 with hyperglycemia patient is resumed on home dose of Levemir at bedtime and is on Accu-Cheks and sliding scale Chronic abdominal pain following cholecystectomy in 2019 on chronic pain management with suboxone outpatient. Hx of diverticulitis and pancreatitis History of seizure disorder Hx of [place] History of hyperlipidemia History of migraines History of sleep apnea and does not use a CPAP History of anxiety/depression Chronic nicotine use Obesity Full Code Discharge Disposition Patient is stable for discharge home. Patient received PICC line today and will discharge with 2 weeks of IV vancomycin pharmacy to dose with trough goal of 15. Patient to have weekly labs CBC/BMP/CRP as recommended by Dr. Virgen with infectious disease. Patient resumed on home insulin discussed A1C value and compliance to diabetic diet. Patient to see PCP Dr. Johnnie Rhodes in 1 to 2 days. Patient does take suboxone which was renewed 2 days in to admission in the interim patient had recevied norco for abdominal pain. Patient recommended to see her known GI specialist following up for the severe hepatic steatosis. Hospital Course This is a 47-year-old female with past medical history of diabetes mellitus, hyperlipidemia, seizure disorder, sleep apnea, migraines, heart catheterization that was normal, anxiety/depression, smoker, also history of diverticulitis and pancreatitis. Patient presents to [facility] for a 3 day history of abdominal pain and headache was found to be febrile on admission there. Patient had elevated pro-calcitonin and lactic acidosis. She had abdominal pelvis CT completed that was essentially normal , urinalysis not showing infection, patient was brought to [facility] for further evaluation and workup. Patient was found to be low grade fever 99 and tachycardic heart rate was in the 110s. White count is normal, lactic acid has normalized down to 2.0. Blood glucoses in the 300s. Patient continues to severe abdominal pain radiating 10 out of 10 and is having dry heaving and vomiting mostly bile. Epigastric region and right upper quadrant tender to palpation. Patient states this pain feels different than what she has had previous episodes of pancreatitis and diverticulitis. Patient had blood cultures taken and Her workup here consists of an elevated pro-calcitonin level of 0.9 to her AST and ALT are elevated at 111 and 64. Her total bili is normal at 0.6. Sodium is 134. Inflammatory markers are elevated with LDH of 266 and a CRP of 7.5. urinalysis is unremarkable. Patient did have abdominal acute series which is showing no radiographic evidence for acute abdominal process there is basilar patchy airspace opacities representing atelectasis and less likely infiltrates there is a left renal calculus suggested measuring up to [address] showing groundglass reticular changes in the lower lungs slightly increased from prior probably reflecting underlying fibrosis. There is severe hepatic steatosis. Poor distinction between the pancreatic tail, posterior gastric fundus and the splenic hilum similar to appearance from 2019. There is a 3.[address] ructure measuring 3.6 back in 2019. There is mural thickening on the right lateral wall of the cecum and lower descending colon could represent adherent stool material. There is a 2 mm nonobstructive left renal calculus. Patient has moderate degenerative disc disease and facet arthropathy in the lower lumbar spine. -Patient was suspected to have colitis and treated with IV zosyn empirically and infectious disease consultation in place. C.Dif is negative. [facility] system called to notify blood culture showing MRSA which f/u b.c here is negative. Patient symptomatically has improved fever has resolved. Abdominal pain improved back to baseline. Stools are forming up was having some diarrhea. ID recommending PICC line and outpatient antibiotics with IV vanco for 2 weeks. She does have a callous on the left great toe an xray done showing no bony destruction and also had a tagged WBC scan showing marked hepatomegaly with severe hepatic Steatosis diffuse bilateral lung uptake may be normal variation correlate for any signs or symptoms of pneumonitis. Otherwise no evidence for focal abnormal tracer activity. White blood cell count has normalized, hemoglobin 10.8, platelet count 141, sodium 139, potassium 3.8, BUN 4, creatinine 0.36, calcium 8.1, CRP 4.7, glucose low 200s. Lungs are Clear, S1 S2 auscultated abdomen soft mild tenderness which pt states is normal. Focal neuro logical exam is negative. Discharged home. Please see medication reconciliation for a list of current medication. Thank you for allowing us to participate in the care of this patient. The impression and plan of care has been dictated by Rose Mary Kapadia, Nurse Practitioner as directed. Dr. Job MD I have performed a history and physical examination and medical decision making of this patient, discussed the same with the dictator, and agree with the dictators assessment and plan as written, documented as a scribe. Based on total visit time, I have performed more than 50% of this visit. Patient Condition at Discharge: Fair Plan - Discharge Summary Discharge Rx Participant: Yes New Discharge Prescriptions: New Ertugliflozin Pidolate [Steglatro] 5 mg PO DAILY Continue Ondansetron [Zofran] 4 mg PO Q8H PRN PRN Reason: Nausea And Vomiting Lacosamide [Vimpat] 200 mg PO BID Pioglitazone [Actos] 30 mg PO DAILY Fenofibrate [Lofibra] 160 mg PO HS levETIRAcetam [Keppra] 1,000 mg PO BID Pantoprazole Sodium [Protonix] 20 mg PO DAILY Insulin Regular, Human [humulin R U-500 Kwikpen] 30 unit SQ AC-BID@1200,1800 Insulin Regular, Human [humulin R U-500 Kwikpen] 100 unit SQ AC-BRKFST Lipase/Protease/Amylase [Perri Stephenson 36,000 Unit Capsule] 72,000 cap PO DAILY PRN PRN Reason: snacks Lipase/Protease/Amylase [Perri Stephenson 36,000 Unit Capsule] 108,000 units PO TID- W/MEALS Dulaglutide [Trulicity] 0.75 mg SQ FR Buprenorphine HCl/Naloxone HCl [Suboxone 2 mg-0.5 mg Sl Film] 1 film SL BID Discharge Medication List Ondansetron [Zofran] 4 mg PO Q8H PRN 11/04/16 [History] Lacosamide [Vimpat] 200 mg PO BID 09/22/18 [History] Buprenorphine HCl/Naloxone HCl [Suboxone 2 mg-0.5 mg Sl Film] 1 film SL BID 05/12/23 [History] Dulaglutide [Trulicity] 0.75 mg SQ FR 05/12/23 [History] Fenofibrate [Lofibra] 160 mg PO HS 05/12/23 [History] Insulin Regular, Human [humulin R U-500 Kwikpen] 30 unit SQ AC-BID@1200,1800 05/12/23 [History] Insulin Regular, Human [humulin R U-500 Kwikpen] 100 unit SQ AC-BRKFST 05/12/23 [History] Lipase/Protease/Amylase [Perri Stephenson 36,000 Unit Capsule] 72,000 cap PO DAILY PRN 05/12/23 [History] Lipase/Protease/Amylase [Perri Stephenson 36,000 Unit Capsule] 108,000 units PO TID- W/MEALS 05/12/23 [History] Pantoprazole Sodium [Protonix] 20 mg PO DAILY 05/12/23 [History] Pioglitazone [Actos] 30 mg PO DAILY 05/12/23 [History] levETIRAcetam [Keppra] 1,000 mg PO BID 05/12/23 [History] Ertugliflozin Pidolate [Steglatro] 5 mg PO DAILY 05/15/23 [Rx] Follow up Appointment(s)/Referral(s): Johnnie Voss MD [Primary Care Provider] - 1-2 days (please call and make appointment with PCP) Brittney Virgen MD [STAFF PHYSICIAN] - 1 Week ([facility] will call to set up appointment ) Ambulatory/Diagnostic Orders: Basic Metabolic Panel [LAB.AMB] Time Frame: 3 Days, Location: None Selected Complete Blood Count w/diff [LAB.AMB] Time Frame: 3 Days, Location: None Selected Activity/Diet/Wound Care/Special Instructions: Please make a follow up with your known GI doctor on discharge to follow up for chronic abdominal pain, and suspected colitis Continue on regular diabetic diet as tolerated Discharged with PICC line in place and 2 weeks of IV vancomycin pharmacy to dose through [facility] on discharge and Dr. Abrams to follow up outpatient This is for the MRSA positive blood culture. Follow up with your PCP Dr. Johnnie Voss in 1 to 2 days and follow up with Dr. Virgen in 1 week Follow up labs in 2 to 3 days Discharge Disposition: HOME SELF-CARE
[2023-05-17 16:08] VITALS: BP 143/80; PULSE 74; TEMP 98
[2023-05-18] MEDS ORDERED: VANCOMYCIN TROUGH DUE 1 EACH MISC MISCELLANE ONE (07:00)
== END 2023-05-17 16:06 | disposition home health service (06) | DRG 872 ==
LOC: EC 07:22 → 3SCARD 08:17
PROVIDERS: ADMIT Hospitalist; ATTEND Hospitalist
PROC: 02HV33Z Insertion of Infusion Device into Superior Vena Cava, Percutaneous Approach (ICD-10-PCS; principal; 2023-05-17 11:00)
DX: A41.02 Sepsis due to Methicillin resistant Staphylococcus aureus (principal); E87.1 Hypo-osmolality and hyponatremia; K86.1 Other chronic pancreatitis; E66.9 Obesity, unspecified; E78.1 Pure hyperglyceridemia; E78.5 Hyperlipidemia, unspecified; E86.1 Hypovolemia; E87.6 Hypokalemia; F32.A Depression, unspecified; F41.9 Anxiety disorder, unspecified; G40.909 Epilepsy, unspecified, not intractable, without status epilepticus; G43.909 Migraine, unspecified, not intractable, without status migrainosus; G47.30 Sleep apnea, unspecified; E11.65 Type 2 diabetes mellitus with hyperglycemia; G89.29 Other chronic pain; K76.0 Fatty (change of) liver, not elsewhere classified; M47.819 Spondylosis without myelopathy or radiculopathy, site unspecified; M51.36 Other intervertebral disc degeneration, lumbar region; N20.0 Calculus of kidney; R09.02 Hypoxemia; Z20.822 Contact with and (suspected) exposure to COVID-19; K52.9 Noninfective gastroenteritis and colitis, unspecified; I25.2 Old myocardial infarction; Z79.2 Long term (current) use of antibiotics; Z79.4 Long term (current) use of insulin; Z79.84 Long term (current) use of oral hypoglycemic drugs; Z79.899 Other long term (current) drug therapy; Z80.49 Family history of malignant neoplasm of other genital organs; Z80.51 Family history of malignant neoplasm of kidney; Z82.49 Family history of ischemic heart disease and other diseases of the circulatory system; Z90.49 Acquired absence of other specified parts of digestive tract; Z87.891 Personal history of nicotine dependence; Z68.36 Body mass index [BMI] 36.0-36.9, adult
CPT/HCPCS: 36415; 36573; 74022; 74176; 78306; 80048; 80053; 80074; 81001; 82150; 82565; 83036; 83605; 83615; 83690; 83735; 84132; 84145; 84450; 84460; 85025; 85652; 86140; 86644; 86645; 86663; 86664; 86665; 87040; 93005; 96361; 96374; 96375; 99285

== ENCOUNTER 2024-12-26 23:11 | Inpatient (IN) | payer MEDICARE, OTHER ==
[2024-12-26] MEDS ORDERED: NALOXONE 0.4 MG/ML 1 ML VIAL IV PRN (23:23)
[2024-12-26] MEDS ORDERED: LORazepam 2 MG/ML INJ IV PRN (23:23)
[2024-12-26] MEDS ORDERED: ACETAMINOPHEN TAB 325 MG TAB PO PRN (23:23)
--- NOTE | 2024-12-26 23:32 | ED ---
General Adult HPI - General Chief complaint: Seizure Stated complaint: KARL Time Seen by Provider: 12/26/24 23:16 Source: patient, EMS, RN notes reviewed, old records reviewed Mode of arrival: EMS Limitations: no limitations - History of Present Illness Initial comments: 49-year-old female had presented to outside hospital with prolonged seizure activity at home and second seizure during transport. Approximate length of time was 30 minutes. She had been evaluated at [place] emergency department where she was noted to have a normal head CT, laboratory testing revealing a mild leukocytosis and a minimally elevated lactic acid of 2.4. X-ray showed concern for airspace opacity consistent with pneumonia and the patient did have a mildly elevated procalcitonin. She was given antibiotics and transferred to this institution for recurrent seizure and need for neurology consultation. Patient states she has been compliant with her medications. No further seizure activity after benzodiazepines were administered at outside hospital. Patient has no complaint at this time. - Related Data Home Medications Medication Instructions Recorded Confirmed Ondansetron [Zofran] 4 mg PO Q8H PRN 11/04/16 05/12/23 Lacosamide [Vimpat] 200 mg PO BID 09/22/18 05/12/23 Buprenorphine HCl/Naloxone HCl 1 film SL BID 05/12/23 05/12/23 [Suboxone 2 mg-0.5 mg Sl Film] Dulaglutide [Trulicity] 0.75 mg SQ FR 05/12/23 05/12/23 Fenofibrate [Lofibra] 160 mg PO HS 05/12/23 05/12/23 Insulin Regular, Human [humuLIN R 30 unit SQ AC-BID@1200,1800 05/12/23 05/12/23 U-500 Kwikpen] Insulin Regular, Human [humuLIN R 100 unit SQ AC-BRKFST 05/12/23 05/12/23 U-500 Kwikpen] Lipase/Protease/Amylase [Perri Stephenson 72,000 cap PO DAILY PRN 05/12/23 05/12/23 36,000 Unit Capsule] Lipase/Protease/Amylase [Perri Stephenson 108,000 units PO TID-W/MEALS 05/12/23 05/12/23 36,000 Unit Capsule] Pantoprazole Sodium [Protonix] 20 mg PO DAILY 05/12/23 05/12/23 Pioglitazone [Actos] 30 mg PO DAILY 05/12/23 05/12/23 levETIRAcetam [Keppra] 1,000 mg PO BID 05/12/23 05/12/23 Previous Rx's Medication Instructions Recorded Ertugliflozin Pidolate [Steglatro] 5 mg PO DAILY 05/15/23 Allergies Allergy/AdvReac Type Severity Reaction Status Date / Time Iodinated Contrast Media Allergy Swelling & Verified 05/12/23 14:55 [Iodinated Contrast Media - Itching IV Dye] all over Review of Systems ROS Statement: Those systems with pertinent positive or pertinent negative responses have been documented in the HPI. ROS Other: All systems not noted in ROS Statement are negative. Past Medical History Past Medical History: Chest Pain / Angina, Diabetes Mellitus, Hyperlipidemia, Memory Impairment, Myocardial Infarction ([place]), Osteoarthritis (OA), Seizure Disorder, Sleep Apnea/CPAP/BIPAP Additional Past Medical History / Comment(s): Previous 2 seizures in 2016, familial hypertriglyceridemia, pancreatitis, IDDM type II, migraines, CPAP but not using, arthritis multiple joints, chronic low back, [place] 2007. Heart valve spasm Last Myocardial Infarction Date:: 2007 History of Any Multi-Drug Resistant Organisms: None Reported Past Surgical History: Back Surgery, Heart Catheterization, Orthopedic Surgery Additional Past Surgical History / Comment(s): Cardiac cath-normal, low back surgery, L ankle surgery for entrapped vessels, L knee arthroscopy. Past Anesthesia/Blood Transfusion Reactions: No Reported Reaction Past Psychological History: Anxiety, Depression Smoking Status: Former smoker Past Alcohol Use History: Rare Past Drug Use History: None Reported - Past Family History Father Family Medical History: Congestive Heart Failure (CHF) Additional Family Medical History / Comment(s): Father at the age of 59 yrs from CHF. Mother Family Medical History: Cancer, CVA/TIA, Myocardial Infarction ([place]) Additional Family Medical History / Comment(s): Mother has had CVAs and MIs with one IN while in her late 30's. She had renal carcinoma Sister(s) Family Medical History: Cancer Additional Family Medical History / Comment(s): sister with cervical cancer, at the age 37 General Exam Limitations: no limitations General appearance: alert, in no apparent distress Head exam: Present: atraumatic, normocephalic Eye exam: Present: normal appearance, PERRL ENT exam: Present: normal exam Neck exam: Present: normal inspection. Absent: tenderness, meningismus Respiratory exam: Present: normal lung sounds bilaterally. Absent: respiratory distress, wheezes Cardiovascular Exam: Present: regular rate, normal rhythm GI/Abdominal exam: Present: soft. Absent: distended, tenderness, guarding Extremities exam: Present: normal inspection, full ROM Neurological exam: Present: alert, oriented X3 Psychiatric exam: Present: normal affect, normal mood Skin exam: Present: warm, dry, intact Course Vital Signs 12/26/24 23:14 Temperature 98.0 F Pulse Rate 105 H Respiratory 18 Rate Blood Pressure 134/78 O2 Sat by Pulse 95 Oximetry Medical Decision Making - Medical Decision Making Was pt. sent in by a medical professional or institution (HERBERT Pineda, TABLET TESTER, urgent care, hospital, or care home...) When possible be specific @ -[Sent from [facility] for seizure Did you speak to anyone other than the patient for history (EMS, parent, family, police, friend...)? What history was obtained from this source @ -No Did you review nursing and triage notes (agree or disagree)? Why? @ -I reviewed and agree with nursing and triage notes Were old charts reviewed (outside hosp., previous admission, EMS record, old EKG, old radiological studies, urgent care reports/EKG's, care home records)? Report findings @ -No old charts were reviewed Differential Seizure: Recurrent seizure disorder, febrile seizure, alcohol withdrawal, stimulants, meningitis, encephalitis, intercranial hemorrhage, intracranial tumor, stroke, eclampsia, thyrotoxicosis, hypocalcemia, hyponatremia, hypernatremia, hypomagnesemia, psychogenic, this is not meant to be an all-inclusive list. EKG interpreted by me (3pts min.). @ -As above X-rays interpreted by me (1pt min.). @ -None done CT interpreted by me (1pt min.). @ -None done U/S interpreted by me (1pt. min.). @ -None done What testing was considered but not performed or refused? (CT, X-rays, U/S, labs)? Why? @ -None What meds were considered but not given or refused? Why? @ -None Did you discuss the management of the patient with other professionals (professionals i.e. HERBERT Pineda, TABLET TESTER, lab, RT, psych nurse, licensed master social worker, civil rights attorney, teacher, supervisor dog license officer, case management coordinator)? Give summary @ -EMH Was smoking cessation discussed for >3mins.? @ -No Was critical care preformed (if so, how long)? @ -No Were there social determinants of health that impacted care today? How? (Homelessness, low income, unemployed, alcoholism, drug addiction, transportation, low edu. Level, literacy, decrease access to med. care, longterm, rehab)? @ -No Was there de-escalation of care discussed even if they declined (Discuss DNR or withdrawal of care, Hospice)? DNR status @ -No What co-morbidities impacted this encounter? (DM, HTN, Smoking, COPD, CAD, Cancer, CVA, ARF, Chemo, Hep., AIDS, mental health diagnosis, sleep apnea, morbid obesity)? @ -[Seizure disorder Was patient admitted / discharged? Hospital course, mention meds given and route, prescriptions, significant lab abnormalities, going to OR and other pertinent info. @ -49-year-old female transfer from outside hospital after prolonged seizure lasting approximately 30 minutes according to the medical record. Patient is awake and alert no focal neurologic findings. CT from outside hospital was reported as normal. Repeat laboratory test will be obtained these results are pending. Patient will be admitted to internal medicine with neurology on consult. Undiagnosed new problem with uncertain prognosis? @ -No Drug Therapy requiring intensive monitoring for toxicity (Heparin, Nitro, Insulin, Cardizem)? @ -No Were any procedures done? @ -No Diagnosis/symptom? @ -Seizure, pneumonia Acute, or Chronic, or Acute on Chronic? @Acute Uncomplicated (without systemic symptoms) or Complicated (systemic symptoms)? @ -Default Side effects of treatment? @ -No Exacerbation, Progression, or Severe Exacerbation? @ -No Poses a threat to life or bodily function? How? (Chest pain, [place], [place], pneumonia, PE, COPD, DKA, ARF, appy, cholecystitis, CVA, Diverticulitis, Homicidal, Suicidal, threat to staff... and all critical care pts) @Yes, seizure, status epilepticus Disposition Clinical Impression: Recurrent seizures Disposition: ADMITTED IP TO THIS [facility] Condition: Stable Is patient prescribed a controlled substance at d/c from ED?: No Referrals: Johnnie Voss MD [Primary Care Provider] - 1-2 days Time of Disposition: 23:32
[2024-12-26] MEDS: SODIUM CHLORIDE 0.9% 1,000 ML IV SCH (23:43)
[2024-12-27 00:36] LABS: Influenza A Not Detected (Not Detectd); Influenza B Not Detected (Not Detectd); RSV Not Detected (Not Detectd)
[2024-12-27 06:44] LABS: Basophils # (A) 0.1 k/uL (0-0.2); Basophils % (A) 0 %; Eosinophils # (A) 0.1 k/uL (0-0.7); Eosinophils % (A) 1 %; HCT 39.7 % (34.0-46.0); HGB 12.4 gm/dL (11.4-16.0); Lymphocytes # (A) 2.4 k/uL (1.0-4.8); Lymphocytes % (A) 16 %; MCH 27.6 pg (25.0-35.0); MCHC 31.3 g/dL (31.0-37.0); MCV 88.2 fL (80.0-100.0); Mean Platelet Volume 7.6; Monocytes # (A) 0.9 k/uL (0-1.0); Monocytes % (A) 6 %; Neutrophils # (A) 11.2 k/uL (1.3-7.7); Neutrophils % (A) 75 %; Platelet Count 193 k/uL (150-450); RDW 13.9 % (11.5-15.5); WBC 14.9 k/uL (3.8-10.6)
[2024-12-27 06:57] LABS: ALT 32 U/L (4-34); AST 34 U/L (14-36); African American GFR (CKD) >90 (>60 ml/min/1.73 sqM); Albumin 3.7 g/dL (3.5-5.0); Alkaline Phosphatase 103 U/L (38-126); Anion Gap 9 mmol/L; Blood Urea Nitrogen 8 mg/dL (7-17); Calcium 8.4 mg/dL (8.4-10.2); Carbon Dioxide 30 mmol/L (22-30); Chloride 96 mmol/L (98-107); Glucose 363 mg/dL (74-99); Magnesium 1.9 mg/dL (1.6-2.3); Non-African American GFR(CKD) >90 (>60 ml/min/1.73 sqM); Potassium 4.4 mmol/L (3.5-5.1); Sodium 135 mmol/L (137-145); Total Bilirubin 0.9 mg/dL (0.2-1.3); Total Protein 7.2 g/dL (6.3-8.2)
[2024-12-27 08:03] LABS: Glucose,Whole Blood 366 mg/dL (70-110)
[2024-12-27] MEDS: LACOSAMIDE 50 MG TABLET PO SCH (08:50)
[2024-12-27] MEDS: levETIRAcetam 500 MG TAB PO SCH (08:51)
[2024-12-27] MEDS ORDERED: GABAPENTIN 100 MG CAP PO PRN (09:52)
--- NOTE | 2024-12-27 10:02 | P.HPIM ---
History of Present Illness Female came in with complaints of seizure activity witnessed by her family members. Patient lost consciousness at the time. Patient complains of water denied any loss of bowel or bladder continence patient was sent in here as she was noted to have pneumonia on the chest x-ray. Patient has mild leukocytosis mildly elevated lactic acid which can be secondary to seizure chest x-ray was read as lower lobe airspace opacity consistent with pneumonia CT of the head is negative although I cannot locate any of the images. Patient was also complaining of slight blood in the urine. Because of the lesions and obtaining a chest x-ray and a urinalysis. Patient was given benzodiazepines and no seizure activity since. Patient also has a history of migraine. REVIEW OF SYSTEMS: All other systems are negative except those mentioned in the HPI PHYSICAL EXAMINATION: GENERAL: The patient is alert and oriented x3, not in any acute distress. Well developed, well nourished. HEENT: Pupils are round and equally reacting to light. EOMI. No scleral icterus. No conjunctival pallor. Normocephalic, atraumatic. No pharyngeal erythema. No thyromegaly. CARDIOVASCULAR: S1 and S2 present. No murmurs, rubs, or gallops. PULMONARY: Chest is clear to auscultation, no wheezing or crackles. ABDOMEN: Soft, nontender, nondistended, normoactive bowel sounds. No palpable organomegaly. MUSCULOSKELETAL: No joint swelling or deformity. EXTREMITIES: No cyanosis, clubbing, or pedal edema. NEUROLOGICAL: Gross neurological examination did not reveal any focal deficits. SKIN: No rashes. Assessment and plan -Possible breakthrough seizures: Patient takes thousand twice daily of Keppra in the Vimpat as well patient was restarted on dose along with benzodiazepines. Seizures as needed neurology was consulted obtaining Keppra levels -Pneumonia as per the chest x-ray from outside hospital will obtain another chest x-ray so that I can review the images will also obtain a procalcitonin. Patient's symptoms are not consistent with pneumonia -Migraine history -Lactic acidosis can be secondary to seizure and/or pneumonia -Leukocytosis can be reactive secondary to seizure -Type 2 diabetes mellitus uncontrolled elevated blood sugars patient will be resumed on home regimen along with sliding scale titrate insulin depending on her requirements -Coronary artery disease -Sleep apnea -Seizure disorder -Depression For above-mentioned chronic medical problems patient will be resumed on appropriate home medications DVT prophylaxis: Early ambulation Past Medical History Past Medical History: Chest Pain / Angina, Diabetes Mellitus, Hyperlipidemia, Memory Impairment, Myocardial Infarction ([place]), Osteoarthritis (OA), Seizure Disorder, Sleep Apnea/CPAP/BIPAP Additional Past Medical History / Comment(s): Previous 2 seizures in 2017, familial hypertriglyceridemia, pancreatitis, IDDM type II, migraines, CPAP but not using, arthritis multiple joints, chronic low back, [place] 2007. Heart valve spasm Last Myocardial Infarction Date:: 2007 History of Any Multi-Drug Resistant Organisms: None Reported Past Surgical History: Back Surgery, Heart Catheterization, Orthopedic Surgery Additional Past Surgical History / Comment(s): Cardiac cath-normal, low back surgery, L ankle surgery for entrapped vessels, L knee arthroscopy. Past Anesthesia/Blood Transfusion Reactions: No Reported Reaction Past Psychological History: Anxiety, Depression Smoking Status: Former smoker Past Alcohol Use History: Rare Past Drug Use History: None Reported - Past Family History Father Family Medical History: Congestive Heart Failure (CHF) Additional Family Medical History / Comment(s): Father at the age of 59 yrs from CHF. Mother Family Medical History: Cancer, CVA/TIA, Myocardial Infarction (PR) Additional Family Medical History / Comment(s): Mother has had CVAs and MIs with one PR while in her late 30's. She had renal carcinoma Sister(s) Family Medical History: Cancer Additional Family Medical History / Comment(s): sister with cervical cancer, at the age 37 Medications and Allergies Home Medications Medication Instructions Recorded Confirmed Type Lacosamide [Vimpat] 200 mg PO BID 09/22/18 12/27/24 History Buprenorphine HCl/Naloxone HCl 1 film SL BID 05/12/23 12/27/24 History [Suboxone 2 mg-0.5 mg Sl Film] Fenofibrate [Lofibra] 160 mg PO HS 05/12/23 12/27/24 History Insulin Regular, Human [humuLIN R 95 unit SQ AC-TID 05/12/23 12/27/24 History U-500 Kwikpen] Lipase/Protease/Amylase [Creon Dr 1 cap PO TID-W/MEALS 05/12/23 12/27/24 History 36,000 Unit Capsule] levETIRAcetam [Keppra] 1,000 mg PO BID 05/12/23 12/27/24 History Dulaglutide [Trulicity] 3 mg SQ LEAVITT 12/27/24 12/27/24 History Gabapentin [Neurontin] 100 mg PO BID PRN 12/27/24 12/27/24 History levETIRAcetam [Keppra] 250 mg PO HS 12/27/24 12/27/24 History Allergies Allergy/AdvReac Type Severity Reaction Status Date / Time Iodinated Contrast Media Allergy Swelling & Verified 12/27/24 09:18 [Iodinated Contrast Media - Itching IV Dye] all over [id number] Reductase AdvReac muscle pain Verified 12/27/24 09:18 Inhibitor Physical Exam Vitals: Vital Signs Temp Pulse Resp BP Pulse Ox 12/27/24 07:54 114 H 16 119/64 95 12/27/24 05:14 108 H 16 100/60 91 L 12/27/24 02:53 109 H 16 134/73 97 12/27/24 01:08 104 H 18 123/65 93 L 12/26/24 23:14 98.0 F 105 H 18 134/78 95 Intake and Output 12/26/24 12/27/24 12/27/24 22:59 06:59 14:59 Other: Weight 102.058 kg Results CBC & Chem 7: 12/27/24 06:16 12/27/24 06:16 Labs: Abnormal Lab Results - Last 24 Hours (Table) 12/27/24 12/27/24 12/27/24 Range/Units 06:16 06:16 08:01 WBC 14.9 H (3.8-10.6) k/uL Neutrophils # 11.2 H (1.3-7.7) k/uL Sodium 135 L (137-145) mmol/L Chloride 96 L (98-107) mmol/L Glucose 363 H (74-99) mg/dL POC Glucose (mg/dL) 366 H (70-110) mg/dL
--- NOTE | 2024-12-27 10:08 | XR ---
EXAMINATION TYPE: XR chest 2V DATE OF EXAM: 12/27/2024 10:04 AM COMPARISON: Chest radiographs from 08/03/2020 sc TECHNIQUE: XR chest 2V Frontal and lateral views of the chest. CLINICAL INDICATION:Female, 49 years old with history of Pneumonia; FINDINGS: The patient is rotated which limits evaluation. Lungs/Pleura: There is no evidence of pleural effusion, focal consolidation, or pneumothorax. Pulmonary vascularity: Unremarkable. Heart/mediastinum: Cardiomediastinal silhouette is unremarkable. Musculoskeletal: No acute osseous pathology. IMPRESSION: No acute cardiopulmonary disease/process. [facility], , 12/27/2024 10:05 AM
[2024-12-27 11:50] LABS: Glucose,Whole Blood 367 mg/dL (70-110)
[2024-12-27] MEDS: FAMOTIDINE 20 MG TAB PO SCH (11:50)
[2024-12-27] MEDS: INSULIN LISPRO (HumaLOG) 100 UNIT/ML 10 mL VL SQ SCH ×2 (12:11→18:47)
[2024-12-27] MEDS: LIPASE 20,000/PROTEASE 63,000/AMYLASE 84,000 PO SCH (12:14)
[2024-12-27] MEDS: NON FORMULARY DRUG (Buprenorphine Hcl/Naloxone Hcl [Suboxone 2 Mg-0.5 Mg Sl Film] 1 EACH F SUBLINGUAL SCH (13:02)
[2024-12-27 14:28] LABS: Appearance,Urine Clear (Clear); Bilirubin,Urine Negative (Negative); Blood,Urine Small (Negative); Color,Urine Colorless; Glucose,Urine (UA) 4+ (Negative); Ketones,Urine 1+ (Negative); Leukocyte Esterase,Urine Negative (Negative); Nitrite,Urine Negative (Negative); Protein,Urine Negative (Negative); RBC,Urine 3 /hpf (0-5); Specific Gravity,Urine 1.027 (1.001-1.035); Squamous Epithelial Cell,Urine 2 /hpf (0-4); Urobilinogen,Urine <2.0 mg/dL (<2.0); WBC,Urine 12 /hpf (0-5)
--- NOTE | 2024-12-27 15:34 | P.CNNES ---
History of Present Illness Consult date: 12/27/24 Reason for Consult: Seizure History of Present Illness: The patient is a 49-year-old female who was seen in neurologic consultation on December 27, 2024, in collaboration with Kae Hall, via teleneurology. History is obtained from the patient as well as review of the chart. Patient reports that she has been having seizures for several years now. She says that she typically has 1 seizure a year. She says that her last seizure was about 1 year ago. She says that she follows with a neurologist and is taking Vimpat and Keppra for seizure prevention. She denies missing any doses of her medication. She denies any recent changes in medications. The patient was brought into the hospital because of her reported breakthrough seizure at home. The patient states that she has been told that she has abnormal movements of her hands and movements of her mouth, prior to the onset of the seizure. She says "I never come out of them on my own". She reports that when EMS arrived at the house, she received a dose of Versed. The patient was reportedly taken to an outside emergency department. She reportedly had a seizure and route to that ER. The patient thinks she may have some recall of being in the other emergency department. She does recall being in our emergency department. The patient denies tongue biting and loss of bowel or bladder control. She says she did have 1 seizure in which she lost control of bowel and bladder. The patient reports that she does sometimes get an aura prior to her seizure. She says "if I lay down, I can get the seizure to go away". In addition to seizures, the patient reportedly has a history of migraine headaches. She says that prior to her seizure yesterday, she was struggling wit h a migraine headache. She continues to have a migraine today. In the outside emergency department, CT scan of the brain was performed. There is no reported evidence of acute hemorrhage or infarct. White blood cell count was mildly elevated at 14.9. Hemoglobin 12.4. Sodium is slightly low at 135. Blood sugars elevated at 363. Past Medical History Past Medical History: Chest Pain / Angina, Diabetes Mellitus, Hyperlipidemia, Memory Impairment, Myocardial Infarction (MA), Osteoarthritis (OA), Seizure Disorder, Sleep Apnea/CPAP/BIPAP Additional Past Medical History / Comment(s): Previous 2 seizures in 2017, familial hypertriglyceridemia, pancreatitis, IDDM type II, migraines, CPAP but not using, arthritis multiple joints, chronic low back, MA 2007. Heart valve spasm Last Myocardial Infarction Date:: 2007 History of Any Multi-Drug Resistant Organisms: None Reported Past Surgical History: Back Surgery, Heart Catheterization, Orthopedic Surgery Additional Past Surgical History / Comment(s): Cardiac cath-normal, low back surgery, L ankle surgery for entrapped vessels, L knee arthroscopy. Past Anesthesia/Blood Transfusion Reactions: No Reported Reaction Past Psychological History: Anxiety, Depression Smoking Status: Former smoker Past Alcohol Use History: Rare Past Drug Use History: None Reported - Past Family History Father Family Medical History: Congestive Heart Failure (CHF) Additional Family Medical History / Comment(s): Father at the age of 59 yrs from CHF. Mother Family Medical History: Cancer, CVA/TIA, Myocardial Infarction (MA) Additional Family Medical History / Comment(s): Mother has had CVAs and MIs with one MA while in her late 30's. She had renal carcinoma Sister(s) Family Medical History: Cancer Additional Family Medical History / Comment(s): sister with cervical cancer, at the age 37 Medications and Allergies Home Medications Medication Instructions Recorded Confirmed Type Lacosamide [Vimpat] 200 mg PO BID 09/22/18 12/27/24 History Buprenorphine HCl/Naloxone HCl 1 film SL BID 05/12/23 12/27/24 History [Suboxone 2 mg-0.5 mg Sl Film] Fenofibrate [Lofibra] 160 mg PO HS 05/12/23 12/27/24 History Insulin Regular, Human [humuLIN R 95 unit SQ AC-TID 05/12/23 12/27/24 History U-500 Kwikpen] Lipase/Protease/Amylase [Creon Dr 1 cap PO TID-W/MEALS 05/12/23 12/27/24 History 36,000 Unit Capsule] levETIRAcetam [Keppra] 1,000 mg PO BID 05/12/23 12/27/24 History Dulaglutide [Trulicity] 3 mg SQ LEAVITT 12/27/24 12/27/24 History Gabapentin [Neurontin] 100 mg PO BID PRN 12/27/24 12/27/24 History levETIRAcetam [Keppra] 250 mg PO HS 12/27/24 12/27/24 History Allergies Allergy/AdvReac Type Severity Reaction Status Date / Time Iodinated Contrast Media Allergy Swelling & Verified 12/27/24 09:18 [Iodinated Contrast Media - Itching IV Dye] all over [id number] Reductase AdvReac muscle pain Verified 12/27/24 09:18 Inhibitor Physical Examination - Vital Signs Vital Signs: Vital Signs Temp Pulse Resp BP Pulse Ox 12/27/24 07:54 114 H 16 119/64 95 12/27/24 05:14 108 H 16 100/60 91 L 12/27/24 02:53 109 H 16 134/73 97 12/27/24 01:08 104 H 18 123/65 93 L 12/26/24 23:14 98.0 F 105 H 18 134/78 95 Intake and Output 12/26/24 12/27/24 12/27/24 22:59 06:59 14:59 Other: Weight 102.058 kg General: The patient is reclining in the bed. Well-nourished, well-developed and in no acute distress. HEENT: Head is atraumatic, normocephalic. Fundus not visualized. There is no scleral icterus. Mucous membranes are moist. Neck: Supple without carotid bruits Heart: Regular rate and rhythm Lungs: Essentially clear to auscultation Extremities: Without edema Neurological examination Mental status: Patient is awake, alert and oriented x 3. His speech is clear. There is no dysarthria or aphasia. Cranial nerves: Pupils are equal at 3 mm and reactive to light. Visual allison are full to confrontation. Extraocular movements are intact. There is no nystagmus. Facial sensation is intact. There is no facial asymmetry. Hearing is grossly intact. Uvula and palate are midline. Shoulder shrug is symmetric. Tongue protrudes midline, without evidence of bite. Motor: Strength is 5/5 throughout. Sensation: Intact to light touch throughout. There is no extinction with double simultaneous stimulation. Coordination: [id number] and rapid alternating movements are intact. There is no pronator drift. Deep tendon reflexes: 2+/4+ in the bilateral biceps and brachioradialis reflexes. Patellar reflexes 1+/4+. Plantar responses are flexor bilaterally. Gait: Not assessed Results - Laboratory Findings CBC and BMP: 12/27/24 06:16 12/27/24 06:16 Abnormal Lab Findings: Abnormal Labs 12/27/24 12/27/24 12/27/24 06:16 06:16 08:01 WBC 14.9 H Neutrophils # 11.2 H Sodium 135 L Chloride 96 L Glucose 363 H POC Glucose (mg/dL) 366 H Assessment and Plan Assessment: 1. Breakthrough seizure in a patient with reported seizure disorder who is taking Vimpat and Keppra. 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 Ongoing diabetes mellitus, poorly controlled 3. History of coronary artery disease 4. Reported history of memory loss Plan: 1. Agree with checking Keppra level 2. EEG has been ordered 3. Seizure precautions 4. Ativan 1 mg IV push as needed for breakthrough seizure Thank you for allowing us to participate in the care of this patient. Neurologic coverage will be assumed by Dr. Richardson, on December 28, 2024 Time with Patient: Greater than 30 (60 minutes were spent caring for this patient today including, obtaining history, examining the patient, reviewing imaging, chart documentation, labs, placing orders and creating this note)
[2024-12-27] MEDS: NON FORMULARY DRUG (Insulin Regular, Human [Humulin R U-500 Kwikpen] 500 UNIT/ML Insuln.Pe SQ SCH (16:09)
[2024-12-27 18:12] LABS: Glucose,Whole Blood 434 mg/dL (70-110)
[2024-12-27 20:31] LABS: Glucose,Whole Blood 315 mg/dL (70-110)
[2024-12-27] MEDS: FENOFIBRATE 160 MG TAB PO SCH (20:42)
[2024-12-27] MEDS: INSULIN GLARGINE (LANTUS) 100 UNIT/ML SYR SQ SCH (20:44)
[2024-12-28 06:08] LABS: Glucose,Whole Blood 300 mg/dL (70-110)
[2024-12-28 07:30] VITALS: TEMP 97.8
[2024-12-28] MEDS: KETOROLAC 15 MG/ML 1 ML VIAL IVP PRN (07:58)
[2024-12-28] MEDS ORDERED: LORazepam 1 MG/0.5 ML VIAL IV PRN (08:17)
[2024-12-28 09:21] LABS: HCT 36.4 % (37.2-46.3); HGB 11.4 g/dL (12.0-15.0); MCH 27.8 pg (27.0-32.0); MCHC 31.3 g/dL (32.0-37.0); MCV 88.8 FL (80.0-97.0); Mean Platelet Volume 10.3 FL (9.5-12.2); NRBC Per 100 WBC 0 X 10*3/uL (0.00-0.01); Platelet Count 180 X 10*3/uL (140-440); RDW 13.3 % (11.5-14.5); WBC 13.07 X 10*3/uL (4.50-10.00)
[2024-12-28 09:23] LABS: Blood Urea Nitrogen 6.5 mg/dL (9.0-27.0); Calcium 8.7 mg/dL (8.7-10.3); Carbon Dioxide 27.3 mmol/L (21.6-31.8); Chloride 98 mmol/L (96-109); Glucose 277 mg/dL (70-110); Magnesium 2.1 mg/dL (1.5-2.4); Potassium 4.6 mmol/L (3.5-5.5); Sodium 136 mmol/L (135-145)
[2024-12-28 12:02] LABS: Glucose,Whole Blood 347 mg/dL (70-110)
[2024-12-28 14:39] VITALS: BP 115/64; PULSE 80; RESP 15
[2024-12-28 17:33] LABS: Glucose,Whole Blood 337 mg/dL (70-110)
--- NOTE | 2024-12-28 17:55 | P.PN ---
Subjective Progress Note Date: 12/28/24 Patient initially seen by Dr. Tipton. Please refer to her note for details. Patient has presented with breakthrough seizure in a patient with history of seizure disorder. Dr. Tipton felt that it appears like psychogenic seizure. No further seizures reported. Patient states that she was having a bad migraine, not feeling well, had a slight fever and also under a lot of stress because of problem with her's and her mother's cars. She has not had any seizure for last 10 months. Patient follows up with Dr. Yanet Mancilla. Objective - Vital Signs Vital signs: Vital Signs Temp 97.8 F 12/28/24 14:38 Pulse 80 12/28/24 14:38 Resp 15 12/28/24 14:38 BP 115/64 12/28/24 14:38 Pulse Ox 95 12/28/24 14:38 FiO2 Intake & Output 12/27/24 12/28/24 12/28/24 18:59 06:59 18:59 Intake Total 300 118 Balance 300 118 Weight 102.058 kg Intake: Oral 300 118 Other: Voiding Method Toilet Toilet # Voids 1 4 - Exam Mental status, speech and language functions are normal. Muscle strength normal. Gait normal. - Labs CBC & Chem 7: 12/28/24 04:39 12/28/24 04:39 Labs: Abnormal Lab Results - Last 24 Hours (Table) 12/27/24 12/27/24 12/28/24 Range/Units 18:10 20:29 04:39 WBC 13.07 H (4.50-10.00) X 10*3/uL Hgb 11.4 L (12.0-15.0) g/dL Hct 36.4 L (37.2-46.3) % MCHC 31.3 L (32.0-37.0) g/dL BUN (9.0-27.0) mg/dL Creatinine (0.6-1.5) mg/dL Glucose (70-110) mg/dL POC Glucose (mg/dL) 434 H 315 H (70-110) mg/dL 12/28/24 12/28/24 12/28/24 Range/Units 04:39 06:07 12:00 WBC (4.50-10.00) X 10*3/uL Hgb (12.0-15.0) g/dL Hct (37.2-46.3) % MCHC (32.0-37.0) g/dL BUN 6.5 L (9.0-27.0) mg/dL Creatinine 0.5 L (0.6-1.5) mg/dL Glucose 277 H (70-110) mg/dL POC Glucose (mg/dL) 300 H 347 H (70-110) mg/dL Assessment and Plan Assessment: 1. Breakthrough seizure in a patient with reported seizure disorder who is taking Vimpat and Keppra. 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 Seizure likely related to multiple stressors as mentioned above. 2. Ongoing diabetes mellitus, poorly controlled 3. History of coronary artery disease 4. Reported history of memory loss Plan: 1. Await Keppra level 2. EEG was performed, which was normal awake and drowsy. No epileptiform activity was seen. 3. Seizure precautions 4. Ativan 1 mg IV push as needed for breakthrough seizure 5. Continue Keppra 1000 mg in the morning, 1250 mg at bedtime and Vimpat 200 mg twice daily. These are her home medication doses. 6. Neurologically clear for discharge. Informed the nurse. Recommend follow- up with Dr. Mancilla as scheduled. 7. Recommend no driving for 6 months, unless seizure-free for 6 consecutive months, climbing ladders, operating dangerous machinery or unsupervised swimming. Addendum: Keppra level 19.0 (3-60)
[2024-12-28] MEDS ORDERED: levETIRAcetam 250 MG TAB PO SCH (21:00)
--- NOTE | 2024-12-28 22:56 | EEG ---
ELECTROENCEPHALOGRAM REPORT PREAMBLE: This is a 49-year-old female who presented with a witnessed seizure like activity in which the patient lost consciousness at that time. The patient has history of seizure disorder. MEDICATIONS: The patient currently on, 1. Vimpat. 2. Keppra. 3. Toradol. 4. Neurontin. 5. Suboxone. 6. Ativan. EEG FINDINGS: This is a 21-channel digital EEG recorded with video component, utilizing 10/20 international system with referential and bipolar montages. Background consists of well developed, well regulated moderate voltage activity in 8 to 9 hertz alpha. Background is posterior dominant and reactive to eye opening and closing. Some drowsiness was seen with appearance of bilaterally symmetric theta frequency rhythm. Deeper stages of sleep were not seen. Some sweat artifact was seen. Photic driving response was not seen. No focal or generalized epileptiform activity was seen. IMPRESSION: This is a normal awake and drowsy EEG. No focal, lateralized, or epileptiform activity was seen. MMODL / IJN: [id number] /
--- NOTE | 2024-12-29 10:36 | P.DS ---
Providers Date of admission: 12/26/24 23:23 Expected date of discharge: 12/28/24 Attending physician: Edgar Ko Consults: 12/26/24 23:23 Consult Physician Routine Consulting Provider: Kenny Richardson Consult Reason/Comments: Seizure Do you want consulting provider notified?: Yes Primary care physician: Johnnie Steward Hospital Course: Final diagnosis -breakthrough seizures: Noncompliance with medications -Pneumonia as per the chest x-ray from outside hospital, pneumonia ruled out -Migraine history -Lactic acidosis likely secondary to seizure activity, improved -Leukocytosis, reactive secondary to seizure -Type 2 diabetes mellitus uncontrolled with hyperglycemia -Coronary artery disease history -Sleep apnea, needs outpatient testing -Seizure disorder -Depression -Obesity with a BMI of 34.2 -GI prophylaxis DVT prophylaxis Full code Discharge disposition Patient is being discharged in a stable condition with guarded prognosis to home. Patient will follow-up with Dr. steward in the outpatient setting upon discharge. Patient is to continue with current seizure medications as mentioned per neurology and close outpatient follow-up with her neurologist as scheduled. Total time taken is greater than 35 minutes. Hospital course This is a 49-year-old female who was recently admitted with breakthrough seizures being closely monitored with neurology following. Patient underwent EEG showing a normal EEG with no focal lateralized or epileptiform discharges noted. Patient will continue on Vimpat and Keppra doses and has been instructed to follow-up with primary care provider on discharge this week. Patient also reports she was having an extremely horrible migraine and fever and not feeling well and had not taken her medication. Patient has been cleared by neurology and extremely keen on going home. Please refer to other consultation notes for further HPI. Currently no reports of chest pain, shortness of breath, or palpitations. Patient is afebrile. No reports of nausea or vomiting and patient is tolerating diet. Patient will be discharged home today. Patient provided with resources to have further sleep study testing in the outpatient setting. Guarded prognosis and high risk for readmissions given significant comorbidities. Physical exam: Gen: This is a 49-year-old female who is awake, alert and oriented x 3, well- developed, obese, appears older than stated age HEENT: Head is atraumatic, normocephalic. Pupils equal, round. Sclerae is anicteric. NECK: Supple. No JVD. No lymphadenopathy. No thyromegaly. LUNGS: Diminished breath sounds bilaterally otherwise clear to auscultation. No wheezes or rhonchi. No intercostal retractions. HEART: Regular rate and rhythm. No murmur. ABDOMEN: Soft. Obese. Bowel sounds are present. No masses. No tenderness. EXTREMITIES: No pedal edema. No calf tenderness. NEUROLOGICAL: Patient is awake, alert and oriented x3. Cranial nerves 2 through 12 are grossly intact. Please refer to medication reconciliation sheet for a list of medications. The impression and plan of care has been dictated by Tiffanie Howell, Nurse Practitioner as directed. Dr. Maikel MD I have performed a history and examination and MDM of this patient, discussed the same with the dictator, and agree with the dictator's assessment and plan as written ,documented as a scribe. Based on total visit time, I have performed more than 50% of the visit. Patient Condition at Discharge: Stable Plan - Discharge Summary New Discharge Prescriptions: New Insulin Glargine (Lantus) [Lantus Vial] 20 unit SQ HS 30 Days #4 each Acetaminophen Tab [Tylenol] 650 mg PO Q6HR PRN tab PRN Reason: Mild Pain Or Fever > 100.5 Continue Lacosamide [Vimpat] 200 mg PO BID Fenofibrate [Lofibra] 160 mg PO HS Dulaglutide [Trulicity] 3 mg SQ LEAVITT levETIRAcetam [Keppra] 250 mg PO HS Gabapentin [Neurontin] 100 mg PO BID PRN PRN Reason: nerve pain levETIRAcetam [Keppra] 1,000 mg PO BID Insulin Regular, Human [humuLIN R U-500 Kwikpen] 95 unit SQ AC-TID Lipase/Protease/Amylase [Perri Stephenson 36,000 Unit Capsule] 1 cap PO TID-W/MEALS Buprenorphine HCl/Naloxone HCl [Suboxone 2 mg-0.5 mg Sl Film] 1 film SL BID Discharge Medication List Lacosamide [Vimpat] 200 mg PO BID 09/22/18 [History] Buprenorphine HCl/Naloxone HCl [Suboxone 2 mg-0.5 mg Sl Film] 1 film SL BID 05/12/23 [History] Fenofibrate [Lofibra] 160 mg PO HS 05/12/23 [History] Insulin Regular, Human [humuLIN R U-500 Kwikpen] 95 unit SQ AC-TID 05/12/23 [History] Lipase/Protease/Amylase [Perri Stephenson 36,000 Unit Capsule] 1 cap PO TID-W/MEALS 05/12/23 [History] levETIRAcetam [Keppra] 1,000 mg PO BID 05/12/23 [History] Dulaglutide [Trulicity] 3 mg SQ LEAVITT 12/27/24 [History] Gabapentin [Neurontin] 100 mg PO BID PRN 12/27/24 [History] levETIRAcetam [Keppra] 250 mg PO HS 12/27/24 [History] Acetaminophen Tab [Tylenol] 650 mg PO Q6HR PRN tab 12/28/24 [Rx] Insulin Glargine (Lantus) [Lantus Vial] 20 unit SQ HS 30 Days #4 each 12/28/24 [Rx] Follow up Appointment(s)/Referral(s): Johnnie Steward MD [Primary Care Provider] - 1-2 days Patient Instructions/Handouts: Recurrent Seizures in Adults (DC) Activity/Diet/Wound Care/Special Instructions: Activity limited until follow-up Follow-up with primary care provider this week Follow-up with neurology in 1 to 2 weeks Continue taking medications as prescribed Continue diabetic diet and better glycemic control Continue monitoring Accu-Cheks before meals and at bedtime and keep a diary of all readings for primary follow-up Continue with insulin with meals and long-acting at night Discharge Disposition: HOME SELF-CARE
[2025-01-03] MEDS ORDERED: NON FORMULARY DRUG (Dulaglutide [Trulicity] 3 MG/0.5 ML Each) SQ SCH (09:00)
== END 2024-12-28 19:02 | disposition home or self-care (01) | DRG 101 ==
LOC: EC 23:11 → 6NMEDSUR 23:23 → OBSVTOIN 23:24 → 6NMEDSUR 12-27 14:14
PROVIDERS: ADMIT Hospitalist; ATTEND Hospitalist
DX: G40.909 Epilepsy, unspecified, not intractable, without status epilepticus (principal); E87.20 Acidosis, unspecified; E11.65 Type 2 diabetes mellitus with hyperglycemia; E66.9 Obesity, unspecified; F32.A Depression, unspecified; Z79.4 Long term (current) use of insulin; I25.10 Atherosclerotic heart disease of native coronary artery without angina pectoris; G47.30 Sleep apnea, unspecified; Z68.34 Body mass index [BMI] 34.0-34.9, adult; G43.909 Migraine, unspecified, not intractable, without status migrainosus; E78.1 Pure hyperglyceridemia; F41.9 Anxiety disorder, unspecified; I25.2 Old myocardial infarction; G89.4 Chronic pain syndrome; M54.50 Low back pain, unspecified; M19.90 Unspecified osteoarthritis, unspecified site; Z91.148 Patient's other noncompliance with medication regimen for other reason; Z79.85 Long-term (current) use of injectable non-insulin antidiabetic drugs; Z79.84 Long term (current) use of oral hypoglycemic drugs; Z79.899 Other long term (current) drug therapy; Z87.891 Personal history of nicotine dependence; Z91.041 Radiographic dye allergy status
CPT/HCPCS: 71046; 80048; 80053; 80177; 81001; 83735; 84145; 85025; 85027; 87086; 87636; 95816; 96361; 96374; 99285